=== PATIENT | female | born 1955 | race Caucasian/White ===

== ENCOUNTER 2021-01-29 12:49 | Inpatient (IN) | payer MEDICARE ==
--- NOTE | 2021-01-29 13:57 | ED ---
General Adult HPI - General Chief complaint: GI Bleed Stated complaint: Vomiting Time Seen by Provider: 01/29/21 13:35 Source: patient, RN notes reviewed, old records reviewed Mode of arrival: ambulatory Limitations: no limitations - History of Present Illness Initial comments: This is a 65-year-old female who presents emergency department with past history significant for hypertension. Patient states she woke up this morning felt nauseated and it was becoming more significantly so she decided to make herself throw up by sticking her finger down her throat. Patient states she started vomiting and it was quite a bit of blood initially and then it sort of slowly subsided. Patient states currently she has no symptoms other than being lightheaded. Patient denies any difficulty breathing or shortness of breath. Patient denies any chest pain or palpitations. Patient denies any abdominal pain. Patient states currently she is not nauseated and she has not had any diarrhea recently. Patient denies any recent fever chills or cough. - Related Data Allergies Allergy/AdvReac Type Severity Reaction Status Date / Time sulfadiazine Allergy Rash/Hives Verified 01/29/21 13:38 Review of Systems ROS Statement: Those systems with pertinent positive or pertinent negative responses have been documented in the HPI. ROS Other: All systems not noted in ROS Statement are negative. Past Medical History Past Medical History: Diabetes Mellitus History of Any Multi-Drug Resistant Organisms: None Reported Past Surgical History: No Surgical Hx Reported Past Psychological History: No Psychological Hx Reported Smoking Status: Never smoker Past Alcohol Use History: None Reported Past Drug Use History: None Reported General Exam - General Exam Comments Initial Comments: GENERAL: Patient is well-developed and well-nourished. Patient is nontoxic and well- hydrated and is in mild distress. ENT: Neck is soft and supple. No significant lymphadenopathy is noted. Oropharynx is clear. Moist mucous membranes. Neck has full range of motion without eliciting any pain. EYES: The sclera were anicteric and conjunctiva were pink and moist. Extraocular movements were intact and pupils were equal round and reactive to light. Eyelids were unremarkable. PULMONARY: Unlabored respirations. Good breath sounds bilaterally. No audible rales rhonchi or wheezing was noted. CARDIOVASCULAR: There is a regular rate and rhythm without any murmurs gallops or rubs. ABDOMEN: Soft and nontender with normal bowel sounds. SKIN: Skin is clear with no lesions or rashes and otherwise unremarkable. NEUROLOGIC: Patient is alert and oriented x3. Cranial nerves II through XII are grossly intact. Motor and sensory are also intact. Normal speech, volume and content. Symmetrical smile. MUSCULOSKELETAL: Normal extremities with adequate strength and full range of motion. No lower extremity swelling or edema. No calf tenderness. LYMPHATICS: No significant lymphadenopathy is noted PSYCHIATRIC: Normal psychiatric evaluation. Limitations: no limitations Course Vital Signs 01/29/21 01/29/21 13:36 15:16 Temperature 98.6 F Pulse Rate 132 H 100 Respiratory 20 18 Rate Blood Pressure 96/50 128/59 O2 Sat by Pulse 100 97 Oximetry Medical Decision Making - Medical Decision Making Patient's hemoglobin was 6.5 patient was given a unit of packed red blood cells. Patient was also given Protonix. I spoke with Dr. Mak he agreed to admit the patient admitted the patient wrote admitting orders I continued monitoring the hemoglobin. I consulted Dr. Mcclellan EKG shows sinus tachycardia at 107 bpm WI interval 192 QRS is 88 QT interval 362 QTC is 483. Patient's EKG shows no ST segment elevation or depression. - Lab Data Result diagrams: 01/29/21 14:03 01/29/21 14:03 Lab Results 01/29/21 01/29/21 01/29/21 Range/Units 14:03 14:03 14:03 WBC 4.5 (3.8-10.6) k/uL RBC 2.98 L (3.80-5.40) m/uL Hgb 6.5 L* (11.4-16.0) gm/dL Hct 20.7 L (34.0-46.0) % MCV 69.5 L (80.0-100.0) fL MCH 21.9 L (25.0-35.0) pg MCHC 31.5 (31.0-37.0) g/dL RDW 19.2 H (11.5-15.5) % Plt Count 70 L (150-450) k/uL MPV 9.0 Neutrophils % 60 % Lymphocytes % 25 % Monocytes % 5 % Eosinophils % 5 % Basophils % 0 % Neutrophils # 2.7 (1.3-7.7) k/uL Lymphocytes # 1.2 (1.0-4.8) k/uL Monocytes # 0.2 (0-1.0) k/uL Eosinophils # 0.2 (0-0.7) k/uL Basophils # 0.0 (0-0.2) k/uL Hypochromasia Marked Poikilocytosis Moderate Anisocytosis Slight Microcytosis Marked PT 11.4 (9.0-12.0) sec INR 1.1 (<1.2) APTT 22.9 (22.0-30.0) sec Sodium 136 L (137-145) mmol/L Potassium 4.4 (3.5-5.1) mmol/L Chloride 105 (98-107) mmol/L Carbon Dioxide 19 L (22-30) mmol/L Anion Gap 12 mmol/L BUN 37 H (7-17) mg/dL Creatinine 0.97 (0.52-1.04) mg/dL Est GFR (CKD-EPI)AfAm 71 (>60 ml/min/1.73 sqM) Est GFR (CKD-EPI)NonAf 61 (>60 ml/min/1.73 sqM) Glucose 180 H (74-99) mg/dL Calcium 9.1 (8.4-10.2) mg/dL Total Bilirubin 1.0 (0.2-1.3) mg/dL AST 28 (14-36) U/L ALT 22 (4-34) U/L Alkaline Phosphatase 69 (38-126) U/L Total Protein 6.5 (6.3-8.2) g/dL Albumin 3.7 (3.5-5.0) g/dL Coronavirus (PCR) (Not Detectd) 01/29/21 Range/Units 15:16 WBC (3.8-10.6) k/uL RBC (3.80-5.40) m/uL Hgb (11.4-16.0) gm/dL Hct (34.0-46.0) % MCV (80.0-100.0) fL MCH (25.0-35.0) pg MCHC (31.0-37.0) g/dL RDW (11.5-15.5) % Plt Count (150-450) k/uL MPV Neutrophils % % Lymphocytes % % Monocytes % % Eosinophils % % Basophils % % Neutrophils # (1.3-7.7) k/uL Lymphocytes # (1.0-4.8) k/uL Monocytes # (0-1.0) k/uL Eosinophils # (0-0.7) k/uL Basophils # (0-0.2) k/uL Hypochromasia Poikilocytosis Anisocytosis Microcytosis PT (9.0-12.0) sec INR (<1.2) APTT (22.0-30.0) sec Sodium (137-145) mmol/L Potassium (3.5-5.1) mmol/L Chloride (98-107) mmol/L Carbon Dioxide (22-30) mmol/L Anion Gap mmol/L BUN (7-17) mg/dL Creatinine (0.52-1.04) mg/dL Est GFR (CKD-EPI)AfAm (>60 ml/min/1.73 sqM) Est GFR (CKD-EPI)NonAf (>60 ml/min/1.73 sqM) Glucose (74-99) mg/dL Calcium (8.4-10.2) mg/dL Total Bilirubin (0.2-1.3) mg/dL AST (14-36) U/L ALT (4-34) U/L Alkaline Phosphatase (38-126) U/L Total Protein (6.3-8.2) g/dL Albumin (3.5-5.0) g/dL Coronavirus (PCR) Not Detected (Not Detectd) Critical Care Time Critical Care Time: Yes Total Critical Care Time: 35 Disposition Clinical Impression: Upper GI bleed, Anemia Disposition: ADMITTED IP TO THIS [facility] Referrals: None,Stated [Primary Care Provider] - 1-2 days Time of Disposition: 16:08
[2021-01-29 14:39] LABS: Anisocytosis Slight; Basophils % (A) 0 %; Eosinophils # (A) 0.2 k/uL (0-0.7); Eosinophils % (A) 5 %; HCT 20.7 % (34.0-46.0); Hypochromasia Marked; Lymphocytes # (A) 1.2 k/uL (1.0-4.8); Lymphocytes % (A) 25 %; MCH 21.9 pg (25.0-35.0); MCHC 31.5 g/dL (31.0-37.0); MCV 69.5 fL (80.0-100.0); Microcytosis Marked; Monocytes # (A) 0.2 k/uL (0-1.0); Monocytes % (A) 5 %; Neutrophils # (A) 2.7 k/uL (1.3-7.7); Neutrophils % (A) 60 %; Poikilocytosis Moderate; RBC 2.98 m/uL (3.80-5.40); RDW 19.2 % (11.5-15.5); WBC 4.5 k/uL (3.8-10.6)
[2021-01-29 14:42] LABS: HGB 6.5 gm/dL (11.4-16.0)
[2021-01-29 14:47] LABS: Albumin 3.7 g/dL (3.5-5.0); Calcium 9.1 mg/dL (8.4-10.2); Potassium 4.4 mmol/L (3.5-5.1); Total Protein 6.5 g/dL (6.3-8.2)
[2021-01-29 14:48] LABS: INR 1.1 (<1.2); Partial Thromboplastin Time 22.9 sec (22.0-30.0); Prothrombin Time 11.4 sec (9.0-12.0)
[2021-01-29 14:52] LABS: Platelet Count 70 k/uL (150-450)
[2021-01-29] MEDS: PANTOPRAZOLE 40 MG/10 ML VIAL IVP SCH ×2 (15:29→21:36)
[2021-01-29] MEDS ORDERED: SODIUM CHLORIDE 0.9% 1,000 ML IV ONE (16:10)
[2021-01-29] MEDS: SODIUM CHLORIDE 0.9% 1,000 ML IV ONE (16:14)
[2021-01-29 16:35] LABS: Anisocytosis Slight; Basophils % (A) 0 %; Eosinophils # (A) 0.1 k/uL (0-0.7); Eosinophils % (A) 3 %; Hypochromasia Marked; Lymphocytes # (A) 1.2 k/uL (1.0-4.8); Lymphocytes % (A) 27 %; MCH 21.6 pg (25.0-35.0); MCHC 31.1 g/dL (31.0-37.0); MCV 69.5 fL (80.0-100.0); Mean Platelet Volume 13.8; Microcytosis Marked; Monocytes # (A) 0.2 k/uL (0-1.0); Monocytes % (A) 4 %; Neutrophils # (A) 2.7 k/uL (1.3-7.7); Neutrophils % (A) 61 %; Poikilocytosis Moderate; RBC 2.79 m/uL (3.80-5.40); RDW 19.3 % (11.5-15.5); WBC 4.4 k/uL (3.8-10.6)
[2021-01-29 16:57] LABS: HCT 19.4 % (34.0-46.0)
[2021-01-29 17:28] LABS: Platelet Count 79 k/uL (150-450)
[2021-01-29] MEDS ORDERED: ALPRAZolam 0.25 MG TAB PO PRN (18:58)
[2021-01-29] MEDS ORDERED: ZOLPIDEM 10 MG TAB PO PRN (18:58)
[2021-01-29 20:21] LABS: Glucose,Whole Blood 106 mg/dL (75-99)
[2021-01-29] MEDS ORDERED: PANTOPRAZOLE 40 MG/10 ML VIAL IVP SCH (21:00)
[2021-01-29] MEDS: INSULIN ASPART (NovoLOG) 100 UNIT/ML VIAL SQ SCH (21:29)
--- NOTE | 2021-01-29 22:11 | P.HPIM ---
History of Present Illness H&P Date: 01/29/21 Chief Complaint: Vomiting up blood Patient is a 65-year-old female with a known history of diabetes type 2 vdj-rhbwsqv-humsicavj, hyperlipidemia, hypertension, depression presents to ER with complaints of throwing up blood. Patient states that she woke up this morning and felt very nauseated and threw up midm-husqzb-iiwqjlu blood. Patient also noted to have dark-colored stools today and felt lightheaded while she was going to the bathroom. Denied any complaints of abdominal pain. No recent diarrhea. Denied any recent illnesses. No prior history of GI bleed. No c omplaints of chest pain or shortness of breath. No fever no chills. Denies any taking kqyp-pdc-inaoqcs pain medications. No recent travel. Patient states that she had lab work-up done by her PCP and did not mention anything about the hemoglobin specifically. EKG showed sinus tachycardia Laboratory data showed hemoglobin 11.6 0.5 and MCV 69.5 and platelets 70 Sodium 136 potassium 4.4 chloride 105 bicarb is 19 BUN 37 creatinine 0.97 Review of Systems Constitutional: Patient denies any fever or chills . No generalized weakness or weight loss. Abdomen: Patient does have nausea and vomiting of blood. No abdominal pain. No diarrhea. . Cardiovascular: Patient denies any chest pain or short of breath no palpitations. Respiratory: patient denied any cough or sputum production. No shortness of breath Neurologic: Patient denied any numbness or tingling headache. Dizziness and lightheadedness Musculoskeletal: Patient denies any complaints of joint swelling or deformity. Skin: Negative Psychiatric: Negative Endocrine: No heat or cold intolerance. No recent weight gain. Genitourinary: No dysuria or hematuria. All other 14 point ROS negative except the above Past Medical History Past Medical History: Diabetes Mellitus History of Any Multi-Drug Resistant Organisms: None Reported Past Surgical History: Section Additional Past Surgical History / Comment(s): eye surgery Past Anesthesia/Blood Transfusion Reactions: No Reported Reaction Past Psychological History: No Psychological Hx Reported Smoking Status: Never smoker Past Alcohol Use History: None Reported Past Drug Use History: None Reported Medications and Allergies Home Medications Medication Instructions Recorded Confirmed Type ALPRAZolam [Xanax] 0.25 mg PO DAILY PRN 01/29/21 01/29/21 History Escitalopram [Lexapro] 10 mg PO DAILY 01/29/21 01/29/21 History Losartan Potassium [Cozaar] 100 mg PO DAILY 01/29/21 01/29/21 History Simvastatin [Zocor] 20 mg PO DAILY 01/29/21 01/29/21 History Zolpidem Tartrate [Ambien] 10 mg PO HS PRN 01/29/21 01/29/21 History glipiZIDE XL [Glucotrol XL] 5 mg PO DAILY 01/29/21 01/29/21 History metFORMIN HCL [Glucophage] 500 mg PO TID 01/29/21 01/29/21 History Allergies Allergy/AdvReac Type Severity Reaction Status Date / Time sulfadiazine Allergy Rash/Hives Verified 01/29/21 17:05 Physical Exam Vitals: Vital Signs Temp Pulse Pulse Pulse Pulse Resp BP 01/29/21 20:00 98.3 F 83 17 01/29/21 19:03 98.2 F 84 17 130/51 01/29/21 18:33 98.4 F 89 17 107/46 01/29/21 18:23 98 F 87 16 105/41 01/29/21 16:16 104 H 121 H 97 20 01/29/21 15:16 100 18 128/59 01/29/21 13:36 98.6 F 132 H 20 96/50 BP BP BP Pulse Ox 01/29/21 20:00 135/67 99 01/29/21 19:03 99 01/29/21 18:33 100 01/29/21 18:23 01/29/21 16:16 111/50 83/63 119/52 01/29/21 15:16 97 01/29/21 13:36 100 Intake and Output 01/29/21 01/29/21 01/29/21 06:59 14:59 22:59 Intake Total 0 Balance 0 Intake: Blood Product 0 Rc Irr As1 Unit 0 [id number] Other: # Bowel Movements 2 Weight 79.379 kg 79.379 kg PHYSICAL EXAMINATION: Patient is lying in the bed comfortably, no acute distress, awake alert and o riented.. HEENT: Normocephalic. Neck is supple. Pupils reactive. Nostrils clear. Oral cavity is moist. Neck reveals no JVD, carotid bruits, or thyromegaly. CHEST EXAMINATION: Trachea is central. Symmetrical expansion. Lung mata clear to auscultation and percussion. CARDIAC: Normal S1, S2 with no gallops. No murmurs ABDOMEN: Soft. Bowel sounds normal. No organomegaly. No abdominal bruits. Extremities: reveal no edema. No clubbing or cyanosis Neurologically awake, alert, oriented x3 with well-coordinated movements. No focal deficits noted Skin: No rash or skin lesions. Psychiatric: Cooperative. Nonsuicidal Musculoskeletal: No joint swelling or deformity. Normal range of motion. Results CBC & Chem 7: 01/29/21 16:32 01/29/21 14:03 Labs: Abnormal Lab Results - Last 24 Hours (Table) 01/29/21 01/29/21 01/29/21 Range/Units 14:03 14:03 15:20 RBC 2.98 L (3.80-5.40) m/uL Hgb 6.5 L* (11.4-16.0) gm/dL Hct 20.7 L (34.0-46.0) % MCV 69.5 L (80.0-100.0) fL MCH 21.9 L (25.0-35.0) pg RDW 19.2 H (11.5-15.5) % Plt Count 70 L (150-450) k/uL Sodium 136 L (137-145) mmol/L Carbon Dioxide 19 L (22-30) mmol/L BUN 37 H (7-17) mg/dL Glucose 180 H (74-99) mg/dL POC Glucose (mg/dL) (75-99) mg/dL Crossmatch See Detail 01/29/21 01/29/21 Range/Units 16:32 20:20 RBC 2.79 L (3.80-5.40) m/uL Hgb 6.0 L* (11.4-16.0) gm/dL Hct 19.4 L* (34.0-46.0) % MCV 69.5 L (80.0-100.0) fL MCH 21.6 L (25.0-35.0) pg RDW 19.3 H (11.5-15.5) % Plt Count 79 L (150-450) k/uL Sodium (137-145) mmol/L Carbon Dioxide (22-30) mmol/L BUN (7-17) mg/dL Glucose (74-99) mg/dL POC Glucose (mg/dL) 106 H (75-99) mg/dL Crossmatch Thrombosis Risk Factor Assmnt - DVT/VTE Prophylaxis DVT/VTE Prophylaxis: Mechanical Prophylaxis ordered - Choose All That Apply Each Risk Factor Represents 2 Points: Age 61-74 years Thrombosis Risk Factor Assessment Total Risk Factor Score: 2 Thrombosis Risk Factor Assessment Level: Low Risk Assessment and Plan Assessment: Hematemesis secondary to GI bleed likely upper GI Symptomatic anemia Acute blood loss anemia with hemoglobin level 6.5 on admission Microcytic anemia and thrombocytopenia Hypertension Hyperlipidemia Diabetes type 2 mqf-jfrgmbt-lzoqrlhgg DVT prophylaxis and GI prophylaxis Plan: Patient will be continued on IV hydration with normal saline and continue with Protonix IV twice daily and monitor hemoglobin every 4 hours and transfuse if hemoglobin is less than 7. Gastroenterology service was consulted. Patient will be current on home blood pressure medications, insulin sliding scale and follow-up closely. Time with Patient: Greater than 30
[2021-01-29] MEDS: ZOLPIDEM 5 MG TAB PO PRN (22:47)
[2021-01-30 00:19] LABS: Anisocytosis Slight; Basophils % (A) 0 %; Eosinophils # (A) 0.2 k/uL (0-0.7); Eosinophils % (A) 4 %; HCT 23.5 % (34.0-46.0); Hypochromasia Marked; Lymphocytes # (A) 1.6 k/uL (1.0-4.8); Lymphocytes % (A) 34 %; MCH 21.9 pg (25.0-35.0); MCHC 29.8 g/dL (31.0-37.0); MCV 73.3 fL (80.0-100.0); Mean Platelet Volume 9.2; Microcytosis Moderate; Monocytes # (A) 0.3 k/uL (0-1.0); Monocytes % (A) 6 %; Neutrophils # (A) 2.4 k/uL (1.3-7.7); Neutrophils % (A) 51 %; Poikilocytosis Moderate; RDW 18.6 % (11.5-15.5); WBC 4.7 k/uL (3.8-10.6)
[2021-01-30 00:21] LABS: Platelet Count 65 k/uL (150-450)
[2021-01-30 05:09] LABS: Anisocytosis Slight; HCT 20.2 % (34.0-46.0); Hypochromasia Marked; MCH 22.9 pg (25.0-35.0); MCHC 32.2 g/dL (31.0-37.0); Mean Platelet Volume 9.4; Microcytosis Marked; Poikilocytosis Moderate; RBC 2.84 m/uL (3.80-5.40); RDW 18.9 % (11.5-15.5)
[2021-01-30 05:12] LABS: HGB 6.5 gm/dL (11.4-16.0); Platelet Count 63 k/uL (150-450)
[2021-01-30 05:30] LABS: Band Neutrophils % 6 %; Lymphocytes # (M) 1.44 k/uL (1.0-4.8); Monocytes # (M) 0.28 k/uL (0-1.0); Neutrophils % (M) 46 %; Nucleated Red Blood Cells 0 /100 WBC (0-0); Total Cells Counted 100
[2021-01-30 05:31] LABS: Anisocytosis (M) Present; Ovalocytes Present; Poikilocytosis (M) Present; Polychromasia Present
[2021-01-30 06:05] LABS: Glucose,Whole Blood 93 mg/dL (75-99)
[2021-01-30] MEDS: INSULIN ASPART (NovoLOG) 100 UNIT/ML VIAL SQ SCH ×4 (06:20→21:44)
[2021-01-30] MEDS: PANTOPRAZOLE 40 MG/10 ML VIAL IVP SCH ×2 (08:20→21:47)
[2021-01-30 10:22] LABS: % Iron Saturation 25.6 (12.00-45.00)
--- NOTE | 2021-01-30 11:00 | P.CONS ---
History of Present Illness - Reason for Consult Consult date: 01/30/21 Upper GI bleed Requesting physician: Julio César Glover - Chief Complaint Coffee-ground emesis - History of Present Illness This is a 65-year-old female who presented to the emergency department yesterday after she had 3 episodes of coffee-ground emesis. On admission she was noted to have a hemoglobin of 6.0 with a microcytic anemia therefore gastroenterology was consulted for upper GI bleed. The patient states she started feeling nauseated so she actually made herself vomit which she states was very dark. She states she had 2 further episodes of moderate amount of coffee-ground emesis. She denied any associated abdominal pain. She states that she felt weak, tired, and dizzy afterwards. She was given 1 unit of PRBC transfusion with a repeat hemoglobin of 7.0, this morning hemoglobin was 6.5 hematocrit 20.2 platelet count 63,000 and she is currently getting her second unit of PRBC transfusion. Patient denies any previous history of GI bleed. She denies any previous history of thrombocytopenia. She denies any history of liver disease or alcoholism. She denies being on any anticoagulation her NSAID use. She does state that she sometimes gets heartburn she has never had a upper endoscopy. She is up-to-date on her colonoscopy and states that she had approximately 10 years ago which was normal and she is due to have one on this upcoming year. She currently denies any abdominal pain, nausea, or vomiting. She's had no further bleeding. She states she did have a black stool yesterday which was soft, but no further bowel movements today. She's been afebrile. Review of Systems REVIEW OF SYSTEMS: CARDIOPULMONARY: No chest pain or shortness of breath. Gastrointestinal: No abdominal pain. Occasional heartburn. Nausea with coffee- ground emesis 3 yesterday. No further nausea or vomiting today. No rectal bleeding, did have one soft black stool yesterday. GENITOURINARY: No dysuria or hematuria. MUSCULOSKELETAL: Reports normal range of motion., Joint pain. SKIN: No rashes. No jaundice. ENDOCRINE: No chills, fevers. No excessive weight gain or loss. No polydipsia or polyuria. PSYCHIATRIC: Unremarkable. NEUROLOGY: No change in mental status. Denies dizziness, headache. ENT: Vision unremarkable. CONSTITUTIONAL: No recent weight loss. No fever, chills, night sweats. Fatigue and lightheaded. Past Medical History Past Medical History: Diabetes Mellitus History of Any Multi-Drug Resistant Organisms: None Reported Past Surgical History: Section Additional Past Surgical History / Comment(s): eye surgery Past Anesthesia/Blood Transfusion Reactions: No Reported Reaction Past Psychological History: No Psychological Hx Reported Smoking Status: Never smoker Past Alcohol Use History: None Reported Past Drug Use History: None Reported Medications and Allergies Home Medications Medication Instructions Recorded Confirmed Type ALPRAZolam [Xanax] 0.25 mg PO DAILY PRN 01/29/21 01/29/21 History Escitalopram [Lexapro] 10 mg PO DAILY 01/29/21 01/29/21 History Losartan Potassium [Cozaar] 100 mg PO DAILY 01/29/21 01/29/21 History Simvastatin [Zocor] 20 mg PO DAILY 01/29/21 01/29/21 History Zolpidem Tartrate [Ambien] 10 mg PO HS PRN 01/29/21 01/29/21 History glipiZIDE XL [Glucotrol XL] 5 mg PO DAILY 01/29/21 01/29/21 History metFORMIN HCL [Glucophage] 500 mg PO TID 01/29/21 01/29/21 History Allergies Allergy/AdvReac Type Severity Reaction Status Date / Time sulfadiazine Allergy Rash/Hives Verified 01/29/21 17:05 Physical Exam Vitals: Vital Signs Temp Pulse Pulse Pulse Pulse Pulse Resp 01/30/21 08:23 98.4 F 91 16 01/30/21 06:51 98.2 F 88 18 01/30/21 06:21 98.6 F 87 18 01/30/21 06:15 98.5 F 95 16 01/30/21 06:11 89 18 01/30/21 04:20 98.8 F 96 18 01/29/21 23:30 94 17 01/29/21 22:30 98.2 F 80 18 01/29/21 22:08 98.2 F 82 18 01/29/21 21:30 98.5 F 95 16 01/29/21 20:00 98.3 F 83 17 01/29/21 19:03 98.2 F 84 17 01/29/21 18:33 98.4 F 89 17 01/29/21 18:23 98 F 87 16 01/29/21 16:16 104 H 121 H 97 20 01/29/21 15:16 100 18 01/29/21 13:36 98.6 F 132 H 20 BP BP BP BP BP Pulse Ox 01/30/21 08:23 122/62 98 01/30/21 06:51 123/68 97 01/30/21 06:21 97 01/30/21 06:15 127/61 98 01/30/21 06:11 120/64 97 01/30/21 04:20 130/71 98 01/29/21 23:30 122/57 99 01/29/21 22:30 131/64 100 01/29/21 22:08 125/64 94 L 01/29/21 21:30 127/61 98 01/29/21 20:00 135/67 99 01/29/21 19:03 130/51 99 01/29/21 18:33 107/46 100 01/29/21 18:23 105/41 01/29/21 16:16 111/50 83/63 119/52 01/29/21 15:16 128/59 97 01/29/21 13:36 96/50 100 Intake and Output 01/29/21 01/30/21 01/30/21 22:59 06:59 14:59 Intake Total 310 0 310 Balance 310 0 310 Intake: Blood Product 310 0 310 Rc As-1 Unit 0 310 [id number] Rc Irr As1 Unit 310 [id number] Other: # Voids 1 # Bowel Movements 2 Weight 79.379 kg 80.3 kg General appearance: The patient is alert, oriented, appears in no acute distress. HET: Head is normocephalic and atraumatic. Conjunctiva pink. Sclera anicteric. Neck: Supple without lymphadenopathy. Trachea midline. Heart: S1 S2. Regular rate and rhythm. Lungs: Clear to auscultation. Abdomen: Soft, nontender, nondistended with bowel sounds. No guarding or rigidity. Skin: No rashes. No jaundice. Extremities: Normal skin color and turgor. No pedal edema. Neurological: No focal deficits. Alert and oriented x3. Results CBC & Chem 7: 01/30/21 04:18 01/29/21 14:03 Labs: Abnormal Lab Results - Last 24 Hours (Table) 01/29/21 01/29/21 01/29/21 Range/Units 14:03 14:03 15:20 RBC 2.98 L (3.80-5.40) m/uL Hgb 6.5 L* (11.4-16.0) gm/dL Hct 20.7 L (34.0-46.0) % MCV 69.5 L (80.0-100.0) fL MCH 21.9 L (25.0-35.0) pg MCHC (31.0-37.0) g/dL RDW 19.2 H (11.5-15.5) % Plt Count 70 L (150-450) k/uL Sodium 136 L (137-145) mmol/L Carbon Dioxide 19 L (22-30) mmol/L BUN 37 H (7-17) mg/dL Glucose 180 H (74-99) mg/dL POC Glucose (mg/dL) (75-99) mg/dL Crossmatch See Detail 01/29/21 01/29/21 01/29/21 Range/Units 16:32 20:20 23:52 RBC 2.79 L 3.20 L (3.80-5.40) m/uL Hgb 6.0 L* 7.0 L (11.4-16.0) gm/dL Hct 19.4 L* 23.5 L (34.0-46.0) % MCV 69.5 L 73.3 L (80.0-100.0) fL MCH 21.6 L 21.9 L (25.0-35.0) pg MCHC 29.8 L (31.0-37.0) g/dL RDW 19.3 H 18.6 H (11.5-15.5) % Plt Count 79 L 65 L (150-450) k/uL Sodium (137-145) mmol/L Carbon Dioxide (22-30) mmol/L BUN (7-17) mg/dL Glucose (74-99) mg/dL POC Glucose (mg/dL) 106 H (75-99) mg/dL Crossmatch 01/30/21 Range/Units 04:18 RBC 2.84 L (3.80-5.40) m/uL Hgb 6.5 L* (11.4-16.0) gm/dL Hct 20.2 L (34.0-46.0) % MCV 71.0 L (80.0-100.0) fL MCH 22.9 L (25.0-35.0) pg MCHC (31.0-37.0) g/dL RDW 18.9 H (11.5-15.5) % Plt Count 63 L (150-450) k/uL Sodium (137-145) mmol/L Carbon Dioxide (22-30) mmol/L BUN (7-17) mg/dL Glucose (74-99) mg/dL POC Glucose (mg/dL) (75-99) mg/dL Crossmatch Assessment and Plan (1) Microcytic anemia Narrative/Plan: 65-year-old female who presented to the emergency department after 3 episodes of coffee-ground emesis. Patient denies any previous history of GI bleed, denies any anticoagulation or NSAID use. On admission she was noted to have a hemoglobin of 6.0 with CBC consistent with a microcytic anemia. She received 1 unit of PRBC transfusion with a repeat hemoglobin of 7.0. Today her hemoglobin again was 6.5 and she was given a second unit of PRBC transfusion. Is also noted to have thrombocytopenia with a platelet count today of 63,000. Patient denies any previous history of thrombocytopenia. She states she does follow up regularly with her PCP. She denied any abdominal pain associated with nausea and vomiting, denies any history of peptic ulcer disease, does get occasional heartburn. No previous EGD but has had a screening colonoscopy approximately 10 years ago which she states was normal and she is due to have one in the upcoming year. Patient lives consistent with a microcytic anemia likely due to acute GI blood loss. I discussed with patient won't recommend proceeding with an EGD. Possible etiologies include peptic ulcer disease, gastritis, hepatitis, AVM, or other etiologies. Current Visit: Yes Status: Acute Code(s): D50.9 - IRON DEFICIENCY ANEMIA, UNSPECIFIED SNOMED Code(s): 293125917 (2) Upper GI bleed Current Visit: Yes Status: Acute Code(s): K92.2 - GASTROINTESTINAL HEMOR RHAGE, UNSPECIFIED SNOMED Code(s): 04664771 (3) Thrombocytopenia Narrative/Plan: Consult to hematology Current Visit: Yes Status: Acute Code(s): D69.6 - THROMBOCYTOPENIA, UNSPECIFIED SNOMED Code(s): 137013521 Plan: 1. Continue symptomatic and supportive care 2. Protonix 40 mg IV twice a day 3. Clear liquid diet, nothing by mouth after midnight 4. Daily CBC transfuse for hemoglobin less than 7 5. We'll plan to proceed with EGD tomorrow, procedure discussed with patient, including risks and benefits. Patient agreeable to proceed. 6. Hematology consulted for new onset thrombocytopenia Thank you for this consultation, we will continue to follow. Dr. Doris Mcclellan I agree with the dictator's note, documented as a scribe by Dara Mcdermott.
[2021-01-30 11:49] LABS: Glucose,Whole Blood 132 mg/dL (75-99)
[2021-01-30] MEDS: LOSARTAN 50 MG TAB PO SCH (12:35)
[2021-01-30] MEDS: ESCITALOPRAM 10 MG TAB PO SCH (12:35)
[2021-01-30] MEDS: ATORVASTATIN 10 MG TAB PO SCH (12:35)
[2021-01-30] MEDS: SODIUM CHLORIDE 0.9% 1,000 ML IV ONE (12:36)
[2021-01-30] MEDS ORDERED: IOPAMIDOL CONTRAST (ORAL USE) VIAL PO PRN (13:01)
--- NOTE | 2021-01-30 13:09 | P.CONS ---
History of Present Illness - Reason for Consult Consult date: 01/30/21 anemia Requesting physician: Dara Fabian - Chief Complaint hematemesis - History of Present Illness Mrs. Vasquez is a very pleasant woman we have been asked to see regarding anemia and thrombocytopenia. She has had hematemesis and black stool x 1 day, she denied any other symptoms, no precipitating factors she can identify, no Hx of liver disease, ETOH, Hepatitis, chronic NSAID use, she has noted some increase in indigestion in the last few weeks. Denies fever, N,V, dysphagia, odynophagia, pain in the chest, cough, SOB, bruising, no other bleeding to report, she has not had a bout of emesis since admit, she has not eaten anything. Review of Systems 10 point ROS is neg except as stated in HPI Past Medical History Past Medical History: Diabetes Mellitus History of Any Multi-Drug Resistant Organisms: None Reported Past Surgical History: Section Additional Past Surgical History / Comment(s): eye surgery Past Anesthesia/Blood Transfusion Reactions: No Reported Reaction Past Psychological History: No Psychological Hx Reported Smoking Status: Never smoker Past Alcohol Use History: None Reported Past Drug Use History: None Reported Medications and Allergies Home Medications Medication Instructions Recorded Confirmed Type ALPRAZolam [Xanax] 0.25 mg PO DAILY PRN 01/29/21 01/29/21 History Escitalopram [Lexapro] 10 mg PO DAILY 01/29/21 01/29/21 History Losartan Potassium [Cozaar] 100 mg PO DAILY 01/29/21 01/29/21 History Simvastatin [Zocor] 20 mg PO DAILY 01/29/21 01/29/21 History Zolpidem Tartrate [Ambien] 10 mg PO HS PRN 01/29/21 01/29/21 History glipiZIDE XL [Glucotrol XL] 5 mg PO DAILY 01/29/21 01/29/21 History metFORMIN HCL [Glucophage] 500 mg PO TID 01/29/21 01/29/21 History Allergies Allergy/AdvReac Type Severity Reaction Status Date / Time sulfadiazine Allergy Rash/Hives Verified 01/29/21 17:05 Physical Exam Vitals: Vital Signs Temp Pulse Pulse Pulse Pulse Pulse Resp 01/30/21 08:23 98.4 F 91 16 01/30/21 08:00 96 01/30/21 06:51 98.2 F 88 18 01/30/21 06:21 98.6 F 87 18 01/30/21 06:15 98.5 F 95 16 01/30/21 06:11 89 18 01/30/21 04:20 98.8 F 96 18 01/29/21 23:30 94 17 01/29/21 22:30 98.2 F 80 18 01/29/21 22:08 98.2 F 82 18 01/29/21 21:30 98.5 F 95 16 01/29/21 20:00 98.3 F 83 17 01/29/21 19:03 98.2 F 84 17 01/29/21 18:33 98.4 F 89 17 01/29/21 18:23 98 F 87 16 01/29/21 16:16 104 H 121 H 97 20 01/29/21 15:16 100 18 01/29/21 13:36 98.6 F 132 H 20 BP BP BP BP BP Pulse Ox 01/30/21 08:23 122/62 98 01/30/21 08:00 01/30/21 06:51 123/68 97 01/30/21 06:21 97 01/30/21 06:15 127/61 98 01/30/21 06:11 120/64 97 01/30/21 04:20 130/71 98 01/29/21 23:30 122/57 99 01/29/21 22:30 131/64 100 01/29/21 22:08 125/64 94 L 01/29/21 21:30 127/61 98 01/29/21 20:00 135/67 99 01/29/21 19:03 130/51 99 01/29/21 18:33 107/46 100 01/29/21 18:23 105/41 01/29/21 16:16 111/50 83/63 119/52 01/29/21 15:16 128/59 97 01/29/21 13:36 96/50 100 Intake and Output 01/29/21 01/30/21 01/30/21 22:59 06:59 14:59 Intake Total 310 0 310 Balance 310 0 310 Intake: Blood Product 310 0 310 Rc As-1 Unit 0 310 [id number] Rc Irr As1 Unit 310 [id number] Other: # Voids 1 1 # Bowel Movements 2 Weight 79.379 kg 80.3 kg - Constitutional General appearance: average body habitus, cooperative, no acute distress - EENT Eyes: anicteric sclerae, EOMI ENT: hearing grossly normal, normal oropharynx - Neck Neck: no lymphadenopathy - Respiratory Respiratory: bilateral: CTA - Cardiovascular Rhythm: regular Heart sounds: normal: S1, S2 Abnormal Heart Sounds: no systolic murmur, no diastolic murmur, no rub, no S3 Gallop, no S4 Gallop, no click, no other leg Peripheral Edema: bilateral: None - Gastrointestinal General gastrointestinal: no absent bowel sounds, no decreased bowel sounds, no distended, no hepatomegaly, no hyperactive bowel sounds, normal bowel sounds, no organomegaly, no rigid, no scaphoid, soft, no splenomegaly, no tenderness, no umbilical hernia, no ventral hernia - Integumentary Integumentary: normal turgor, pale - Neurologic Neurologic: CNII-XII intact - Musculoskeletal Musculoskeletal: strength equal bilaterally - Psychiatric Psychiatric: A&O x's 3, appropriate affect, intact judgment & insight Results CBC & Chem 7: 01/30/21 04:18 01/29/21 14:03 Labs: Abnormal Lab Results - Last 24 Hours (Table) 01/29/21 01/29/21 01/29/21 Range/Units 14:03 14:03 15:20 RBC 2.98 L (3.80-5.40) m/uL Hgb 6.5 L* (11.4-16.0) gm/dL Hct 20.7 L (34.0-46.0) % MCV 69.5 L (80.0-100.0) fL MCH 21.9 L (25.0-35.0) pg MCHC (31.0-37.0) g/dL RDW 19.2 H (11.5-15.5) % Plt Count 70 L (150-450) k/uL Sodium 136 L (137-145) mmol/L Carbon Dioxide 19 L (22-30) mmol/L BUN 37 H (7-17) mg/dL Glucose 180 H (74-99) mg/dL POC Glucose (mg/dL) (75-99) mg/dL TIBC (228-460) ug/dL Crossmatch See Detail 11/04/2001/29/21 01/29/21 Range/Units 16:32 20:20 23:52 RBC 2.79 L 3.20 L (3.80-5.40) m/uL Hgb 6.0 L* 7.0 L (11.4-16.0) gm/dL Hct 19.4 L* 23.5 L (34.0-46.0) % MCV 69.5 L 73.3 L (80.0-100.0) fL MCH 21.6 L 21.9 L (25.0-35.0) pg MCHC 29.8 L (31.0-37.0) g/dL RDW 19.3 H 18.6 H (11.5-15.5) % Plt Count 79 L 65 L (150-450) k/uL Sodium (137-145) mmol/L Carbon Dioxide (22-30) mmol/L BUN (7-17) mg/dL Glucose (74-99) mg/dL POC Glucose (mg/dL) 106 H (75-99) mg/dL TIBC (228-460) ug/dL Crossmatch 01/30/21 01/30/21 01/30/21 Range/Units 04:18 04:18 11:47 RBC 2.84 L (3.80-5.40) m/uL Hgb 6.5 L* (11.4-16.0) gm/dL Hct 20.2 L (34.0-46.0) % MCV 71.0 L (80.0-100.0) fL MCH 22.9 L (25.0-35.0) pg MCHC (31.0-37.0) g/dL RDW 18.9 H (11.5-15.5) % Plt Count 63 L (150-450) k/uL Sodium (137-145) mmol/L Carbon Dioxide (22-30) mmol/L BUN (7-17) mg/dL Glucose (74-99) mg/dL POC Glucose (mg/dL) 132 H (75-99) mg/dL TIBC 484 H (228-460) ug/dL Crossmatch Assessment and Plan (1) Hypochromic microcytic anemia Current Visit: Yes Status: Acute Priority: High Code(s): D50.9 - IRON DEFICIENCY ANEMIA, UNSPECIFIED SNOMED Code(s): 92110847 (2) Thrombocytopenia Current Visit: Yes Status: Acute Priority: High Code(s): D69.6 - THROMBOCYTOPENIA, UNSPECIFIED SNOMED Code(s): 221289049 Plan: Labs have been ordered to assess microcytic hypochromic anemia and thrombocytopenia, both of which are of new onset. Have asked if some of work up can be done on blood prior to PRBC transfusion if able. If not, will take that into consideration when interpreting. Agree with transfusion for Hgb<7 or if symptomatic. Transfuse to keep plt >10,000. No anticoagulants, asa, ibuprofen, NSAIDs, antiplatelet meds. Coags WNL US abd to evaluate liver and spleen Attests: I have seen and examined pt, performed H&P, developed impression and plan of care. Discussed with dictator. Agree with documentation, documented as a scribe.
--- NOTE | 2021-01-30 13:57 | US ---
EXAMINATION TYPE: US abdomen complete DATE OF EXAM: 01/30/2021 COMPARISON: NONE CLINICAL HISTORY: low plt. recent blood transfusion EXAM MEASUREMENTS: Liver Length: 14.1 cm Gallbladder Wall: 0.9 cm. Normal less than 0.3 cm. CBD: 0.4 cm Spleen: 18.7 cm Right Kidney: 10.1x5.7x5.0 cm Left Kidney: 12.0x6.0x5.0 cm Pancreas: wnl Liver: Heterogenous, scalloped edge in left lobe, small amount of ascites surrounding Gallbladder: Small echogenic foci measuring 0.3cm. Small amount of pericholecystic fluid. Consider a cute cholecystitis. Evidence for sonographic Whitley's sign: No CBD: wnl Spleen: Enlarged spleen measuring 18.7cm or 950cc Right Kidney: Largest renal cyst inferiorly measures 8.6x10.0x8.3cm Left Kidney: Largest renal cyst mid measures 5.4x4.8x4.6cm Upper IVC: wnl Abd Aorta: Slightly calcified IMPRESSION: 1. Splenomegaly 2. Bilateral renal cysts. 3. Cholelithiasis. Gallbladder wall thickening at 0.9 cm is present. Some pericholecystic fluid is pr esent. Correlate for acute cholecystitis.
[2021-01-30 16:08] LABS: Anisocytosis Slight; HCT 26.7 % (34.0-46.0); HGB 7.9 gm/dL (11.4-16.0); Hypochromasia Marked; MCH 23.7 pg (25.0-35.0); MCHC 29.6 g/dL (31.0-37.0); Mean Platelet Volume 8.6; Microcytosis Slight; Platelet Count 51 k/uL (150-450); Poikilocytosis Slight; RBC 3.34 m/uL (3.80-5.40); RDW 19.1 % (11.5-15.5); WBC 3.3 k/uL (3.8-10.6)
[2021-01-30 16:09] LABS: MCV 80.1 fL (80.0-100.0)
[2021-01-30 16:20] LABS: Eosinophils # (M) 0.13 k/uL (0-0.7); Lymphocytes # (M) 1.22 k/uL (1.0-4.8); Neutrophils # (M) 1.75 k/uL (1.3-7.7); Neutrophils % (M) 53 %; Nucleated Red Blood Cells 0 /100 WBC (0-0); Polychromasia Present; Stomatocytes Present; Total Cells Counted 100
[2021-01-30 16:50] LABS: Glucose,Whole Blood 171 mg/dL (75-99)
[2021-01-30 19:46] LABS: Glucose,Whole Blood 131 mg/dL (75-99)
[2021-01-30 20:01] LABS: Protein, Total 5.9 g/dL (6.2-8.2)
[2021-01-30] MEDS: ZOLPIDEM 5 MG TAB PO PRN (21:46)
[2021-01-31 04:42] LABS: Ferritin 8.9 ng/mL (10.0-291.0)
[2021-01-31 06:04] LABS: Glucose,Whole Blood 93 mg/dL (75-99)
[2021-01-31] MEDS: INSULIN ASPART (NovoLOG) 100 UNIT/ML VIAL SQ SCH ×4 (08:08→21:12)
[2021-01-31] MEDS: PANTOPRAZOLE 40 MG/10 ML VIAL IVP SCH ×2 (08:17→21:12)
[2021-01-31] MEDS: ATORVASTATIN 10 MG TAB PO SCH (08:17)
[2021-01-31] MEDS: LOSARTAN 50 MG TAB PO SCH (08:17)
[2021-01-31] MEDS: ESCITALOPRAM 10 MG TAB PO SCH (08:17)
[2021-01-31] MEDS ORDERED: LACTATED RINGERS 1,000 ML IV SCH (11:00)
[2021-01-31 11:40] LABS: Glucose,Whole Blood 121 mg/dL (75-99)
[2021-01-31] MEDS ORDERED: PROPOFOL 10 MG/ML 20 ML VIAL IV ONE (12:19)
[2021-01-31] MEDS ORDERED: IV FLUID CONTINUATION 1,000 ML IV ONE ×2 (12:19)
[2021-01-31] MEDS ORDERED: LIDOCAINE 1% INJ 10MG/ML (20 ML MDV) ONE (12:19)
--- NOTE | 2021-01-31 12:46 | P.PCN ---
Date of Procedure: 01/31/21 Procedure(s) Performed: BRIEF HISTORY: Patient is a 65-year-old, pleasant, white female admitted hospital with acute upper GI bleed and severe anemia and hemoglobin of 6.4 g/dL requiring 2 units of PRBC transfusion. She scheduled for an upper endoscopy to evaluate further. PROCEDURE PERFORMED: Esophagogastroduodenoscopy with esophageal variceal ligation. PREOPERATIVE DIAGNOSIS: Acute upper GI bleed and severe anemia. IV sedation per anesthesia. PROCEDURE: After informed consent was obtained, the patient was brought into the endoscopy unit. IV sedation was administered by Anesthesia under continuous monitoring. Initially the Olympus GIF-140 video endoscope was inserted into the mouth. Esophagus intubated without any difficulty. It was gradually advanced into the stomach and duodenum and carefully examined. The bulb and the second part of the duodenum appeared normal. The scope at this time was withdrawn to the stomach, adequately insufflated with air, and upon careful examination, mucosa of the antrum, body, cardia and the fundus had changes consistent with mild portal hypertensive gastropathy. The scope was then withdrawn into the esophagus. The GE junction was located at 39 cm from the incisors. There were large mid and distal esophageal varices with red birdie vázquez but no active bleeding. At this time the scope was withdrawn. Esophageal variceal ligation was inserted inserted the tip of the scope and esophagus intubated without any difficulty and was gradually advanced to the distal esophagus. Using suction total of 7 bands. Deployed in a spiral fashion starting from the distal esophagus to mid esophagus. The rest of the esophagus appeared normal. There were no erosions or ulcerations seen and the patient tolerated the procedure well. IMPRESSION: 1. Large mid and distal esophageal varices with red birdie signs suspicious for recent source of bleeding status post variceal ligation as described above. 2. Mild portal hypertensive gastropathy. RECOMMENDATIONS: The findings of this examination were discussed with the patient . She'll be on a clear liquid diet today. We'll start on Inderal 10 mg 3 times daily. Discharge from the hospital. She was investigated for chronic liver disease/cirrhosis of the.
[2021-01-31 13:19] LABS: Free Kappa Lt Chain Qnt, Serum 3.11 mg/dL (0.33-1.94)
[2021-01-31 14:11] LABS: Albumin 3.9 g/dL (3.5-5.0); Calcium 8.9 mg/dL (8.4-10.2); Magnesium 1.9 mg/dL (1.6-2.3); Potassium 4.3 mmol/L (3.5-5.1); Total Bilirubin 1.5 mg/dL (0.2-1.3); Total Protein 6.8 g/dL (6.3-8.2)
[2021-01-31 14:24] LABS: Anisocytosis Slight; HCT 28.1 % (34.0-46.0); HGB 8.2 gm/dL (11.4-16.0); Hypochromasia Marked; MCH 23.5 pg (25.0-35.0); MCHC 29.2 g/dL (31.0-37.0); MCV 80.5 fL (80.0-100.0); Mean Platelet Volume 14.3; Microcytosis Slight; Poikilocytosis Slight; RBC 3.49 m/uL (3.80-5.40); RDW 19.4 % (11.5-15.5); WBC 2.8 k/uL (3.8-10.6)
[2021-01-31 15:21] LABS: Eosinophils # (M) 0.08 k/uL (0-0.7); Lymphocytes # (M) 1.01 k/uL (1.0-4.8); Monocytes # (M) 0.28 k/uL (0-1.0); Neutrophils # (M) 1.43 k/uL (1.3-7.7); Neutrophils % (M) 51 %; Nucleated Red Blood Cells 0 /100 WBC (0-0); Total Cells Counted 100
[2021-01-31 15:26] LABS: Ovalocytes Present
[2021-01-31 16:42] LABS: Glucose,Whole Blood 179 mg/dL (75-99)
[2021-01-31 20:19] LABS: Glucose,Whole Blood 149 mg/dL (75-99)
[2021-01-31] MEDS: ZOLPIDEM 5 MG TAB PO PRN (21:09)
--- NOTE | 2021-02-01 00:13 | P.PN ---
Subjective Progress Note Date: 01/30/21 Principal diagnosis: Hematemesis secondary to GI bleed likely upper GI Symptomatic anemia Patient is a 65-year-old female with a known history of diabetes type 2 [id number], hyperlipidemia, hypertension, depression presents to ER with complaints of throwing up blood. Patient states that she woke up this morning and felt very nauseated and threw up [id number] blood. Patient also noted to have dark-colored stools today and felt lightheaded while she was going to the bathroom. Denied any complaints of abdominal pain. No recent diarrhea. Denied any recent illnesses. No prior history of GI bleed. No complaints of chest pain or shortness of breath. No fever no chills. Denies any taking uzxc-mgr-ibmixgn pain medications. No recent travel. Patient states that she had lab work-up done by her PCP and did not mention anything about the hemoglobin specifically. EKG showed sinus tachycardia Laboratory data showed hemoglobin 11.6 0.5 and MCV 69.5 and platelets 70 Sodium 136 potassium 4.4 chloride 105 bicarb is 19 BUN 37 creatinine 0.97 01-30-21 Patient is lying in the bed. Still feels weak. Denies any dizziness or lightheadedness. Hemoglobin 6.5 today. Patient was transfused with second unit of PRBC. Patient was seen by GI and is planning for EGD tomorrow. Continue to monitor CBC Patient is thrombocytopenic with platelet count dropped down to 51 today. Hematology has seen the patient and work-up was ordered. Liver enzymes are not elevated. Ultrasound of the abdomen showed splenomegaly, bilateral renal cysts. Cholelithiasis. Gallbladder wall thickening at 0.9 cm present. Some pericholecystic fluid is present. Correlate for acute cholecystitis. Patient is being continued on Protonix IV twice daily. GI and hematology is on board. Current medications reviewed. Objective - Vital Signs Vital signs: Vital Signs Temp 98.4 F 01/30/21 08:23 Pulse 91 01/30/21 08:23 Resp 16 01/30/21 08:23 BP 122/62 01/30/21 08:23 Pulse Ox 98 01/30/21 08:23 Intake & Output 01/29/21 01/30/21 01/30/21 18:59 06:59 18:59 Intake Total 0 310 310 Balance 0 310 310 Weight 79.379 kg 80.3 kg Intake: Blood Product 0 310 310 Rc As-1 Unit 0 310 [id number] Rc Irr As1 Unit 0 310 [id number] Other: # Voids 1 1 # Bowel Movements 2 - Exam PHYSICAL EXAMINATION: Patient is lying in the bed comfortably, no acute distress, awake alert and oriented.. HEENT: Normocephalic. Neck is supple. Pupils reactive. Nostrils clear. Oral cavity is moist. Neck reveals no JVD, carotid bruits, or thyromegaly. CHEST EXAMINATION: Trachea is central. Symmetrical expansion. Lung mata clear to auscultation and percussion. CARDIAC: Normal S1, S2 with no gallops. No murmurs ABDOMEN: Soft. Bowel sounds normal. No organomegaly. No abdominal bruits. Extremities: reveal no edema. No clubbing or cyanosis Neurologically awake, alert, oriented x3 with well-coordinated movements. No focal deficits noted Skin: No rash or skin lesions. Psychiatric: Cooperative. Nonsuicidal Musculoskeletal: No joint swelling or deformity. Normal range of motion. - Labs CBC & Chem 7: 01/31/21 13:11 01/31/21 13:11 Labs: Abnormal Lab Results - Last 24 Hours (Table) 01/29/21 01/29/21 01/29/21 Range/Units 14:03 14:03 15:20 RBC 2.98 L (3.80-5.40) m/uL Hgb 6.5 L* (11.4-16.0) gm/dL Hct 20.7 L (34.0-46.0) % MCV 69.5 L (80.0-100.0) fL MCH 21.9 L (25.0-35.0) pg MCHC (31.0-37.0) g/dL RDW 19.2 H (11.5-15.5) % Plt Count 70 L (150-450) k/uL Sodium 136 L (137-145) mmol/L Carbon Dioxide 19 L (22-30) mmol/L BUN 37 H (7-17) mg/dL Glucose 180 H (74-99) mg/dL POC Glucose (mg/dL) (75-99) mg/dL TIBC (228-460) ug/dL Crossmatch See Detail 01/29/21 01/29/21 01/29/21 Range/Units 16:32 20:20 23:52 RBC 2.79 L 3.20 L (3.80-5.40) m/uL Hgb 6.0 L* 7.0 L (11.4-16.0) gm/dL Hct 19.4 L* 23.5 L (34.0-46.0) % MCV 69.5 L 73.3 L (80.0-100.0) fL MCH 21.6 L 21.9 L (25.0-35.0) pg MCHC 29.8 L (31.0-37.0) g/dL RDW 19.3 H 18.6 H (11.5-15.5) % Plt Count 79 L 65 L (150-450) k/uL Sodium (137-145) mmol/L Carbon Dioxide (22-30) mmol/L BUN (7-17) mg/dL Glucose (74-99) mg/dL POC Glucose (mg/dL) 106 H (75-99) mg/dL TIBC (228-460) ug/dL Crossmatch 01/30/21 01/30/21 01/30/21 Range/Units 04:18 04:18 11:47 RBC 2.84 L (3.80-5.40) m/uL Hgb 6.5 L* (11.4-16.0) gm/dL Hct 20.2 L (34.0-46.0) % MCV 71.0 L (80.0-100.0) fL MCH 22.9 L (25.0-35.0) pg MCHC (31.0-37.0) g/dL RDW 18.9 H (11.5-15.5) % Plt Count 63 L (150-450) k/uL Sodium (137-145) mmol/L Carbon Dioxide (22-30) mmol/L BUN (7-17) mg/dL Glucose (74-99) mg/dL POC Glucose (mg/dL) 132 H (75-99) mg/dL TIBC 484 H (228-460) ug/dL Crossmatch Assessment and Plan Assessment: Hematemesis secondary to GI bleed likely upper GI Symptomatic anemia Acute blood loss anemia with hemoglobin level 6.5 on admission Microcytic Iron Deff anemia and thrombocytopenia Hypertension Hyperlipidemia Diabetes type 2 [id number] DVT prophylaxis and GI prophylaxis Plan: Patient will be continued on IV hydration with normal saline and continue with Protonix IV twice daily and monitor hemoglobin every 4 hours and transfuse if hemoglobin is less than 7. Gastroenterology And hematology is on board. Work-up for thrombocytopenia was ordered. Patient is scheduled for EGD tomorrow.. Patient will be current on home blood pressure medications, insulin sliding scale and follow-up closely. Time with Patient: Greater than 30
[2021-02-01] MEDS ORDERED: ACETAMINOPHEN TAB 325 MG TAB PO PRN (03:06)
[2021-02-01 05:23] VITALS: RESP 16; TEMP 97.4
[2021-02-01 06:03] LABS: Glucose,Whole Blood 124 mg/dL (75-99)
[2021-02-01 08:11] LABS: Methylmalonic Acid 0.22 umol/L (<0.40)
[2021-02-01] MEDS: INSULIN ASPART (NovoLOG) 100 UNIT/ML VIAL SQ SCH ×2 (08:15→11:57)
[2021-02-01] MEDS: PANTOPRAZOLE 40 MG/10 ML VIAL IVP SCH (08:20)
[2021-02-01] MEDS: ATORVASTATIN 10 MG TAB PO SCH (08:20)
[2021-02-01] MEDS: ESCITALOPRAM 10 MG TAB PO SCH (08:20)
[2021-02-01] MEDS: LOSARTAN 50 MG TAB PO SCH (08:20)
[2021-02-01 09:13] LABS: Anisocytosis Moderate; Basophils % (A) 0 %; Eosinophils # (A) 0.2 k/uL (0-0.7); Eosinophils % (A) 4 %; HCT 25.1 % (34.0-46.0); HGB 8.2 gm/dL (11.4-16.0); Hypochromasia Moderate; Lymphocytes # (A) 1.5 k/uL (1.0-4.8); Lymphocytes % (A) 33 %; MCH 23.9 pg (25.0-35.0); MCHC 32.6 g/dL (31.0-37.0); MCV 73.4 fL (80.0-100.0); Mean Platelet Volume 12.9; Microcytosis Moderate; Monocytes # (A) 0.3 k/uL (0-1.0); Monocytes % (A) 6 %; Neutrophils # (A) 2.4 k/uL (1.3-7.7); Neutrophils % (A) 54 %; Poikilocytosis Moderate; RBC 3.41 m/uL (3.80-5.40); RDW 20.4 % (11.5-15.5); WBC 4.5 k/uL (3.8-10.6)
[2021-02-01 09:42] LABS: Albumin 3.7 g/dL (3.5-5.0); Calcium 8.8 mg/dL (8.4-10.2); Potassium 3.9 mmol/L (3.5-5.1); Total Bilirubin 1.4 mg/dL (0.2-1.3); Total Protein 6.5 g/dL (6.3-8.2)
[2021-02-01 09:49] LABS: Platelet Count 72 k/uL (150-450)
[2021-02-01 11:43] LABS: Glucose,Whole Blood 137 mg/dL (75-99)
[2021-02-01 12:01] LABS: Large Platelets Present; Ovalocytes Present; Polychromasia Present
[2021-02-01 12:06] VITALS: BP 146/73; PULSE 80
--- NOTE | 2021-02-01 12:37 | P.PN ---
Subjective Progress Note Date: 02/01/21 Principal diagnosis: Severe anemia and moderate thrombocytopenia. Her hemoglobin and platelets are stable today. Unfortunately hematology work-up is not definitive given the draw post transfusion. No new complaints overnight, she is status post GI evaluation 01/[address] Mcclellan. Evidence of Large mid and distal Esophageal Varices suspicious for etiology of recent blood loss anemia. Despite iron studies, because of their inaccurate result based on timing of draw will still move forward with parental iron supplementation given evidence of bleeding source on recent EGD. Objective - Vital Signs Vital signs: Vital Signs Temp 97.4 F L 02/01/21 04:00 Pulse 80 02/01/21 12:00 Resp 16 02/01/21 12:00 BP 146/73 02/01/21 12:00 Pulse Ox 99 02/01/21 12:00 Intake & Output 01/31/21 02/01/21 02/01/21 18:59 06:59 18:59 Intake Total 710 Balance 710 Weight 79.9 kg Intake: IV 100 Intake, IV Titration 250 Amount Lactated Ringers 1,000 ml 250 @ 20 mls/hr IV .Q24H NILDA Rx#:[id number] Oral 360 Other: # Voids 1 - Exam Alert NAD Head: NCAT Neck: Supple Lungs: Diminished bases Heart: Tachy Abdomen: Soft Ext: Pedal edema - Labs CBC & Chem 7: 02/01/21 08:12 02/01/21 08:12 Labs: Abnormal Lab Results - Last 24 Hours (Table) 01/30/21 01/30/21 01/31/21 Range/Units 12:51 12:51 13:11 WBC (3.8-10.6) k/uL RBC (3.80-5.40) m/uL Hgb (11.4-16.0) gm/dL Hct (34.0-46.0) % MCV (80.0-100.0) fL MCH (25.0-35.0) pg MCHC (31.0-37.0) g/dL RDW (11.5-15.5) % Plt Count (150-450) k/uL Retic Count (0.5-2.0) % Haptoglobin (31.2-198.0) mg/dL Sodium (137-145) mmol/L Chloride 109 H (98-107) mmol/L Carbon Dioxide 20 L (22-30) mmol/L BUN 20 H (7-17) mg/dL Glucose 133 H (74-99) mg/dL POC Glucose (mg/dL) (75-99) mg/dL Total Bilirubin 1.5 H (0.2-1.3) mg/dL AST 46 H (14-36) U/L RBC Folate 1,210 H (280 - 791) ng/mL Free Lely LC, Quant 3.11 H (0.33-1.94) mg/dL Free Lambda LC, Quant 6.27 H (0.57-2.63) mg/dL 01/31/21 01/31/21 01/31/21 Range/Units 13:11 16:41 17:23 WBC 2.8 L (3.8-10.6) k/uL RBC 3.49 L (3.80-5.40) m/uL Hgb 8.2 L (11.4-16.0) gm/dL Hct 28.1 L (34.0-46.0) % MCV (80.0-100.0) fL MCH 23.5 L (25.0-35.0) pg MCHC 29.2 L (31.0-37.0) g/dL RDW 19.4 H (11.5-15.5) % Plt Count (150-450) k/uL Retic Count 3.0 H (0.5-2.0) % Haptoglobin (31.2-198.0) mg/dL Sodium (137-145) mmol/L Chloride (98-107) mmol/L Carbon Dioxide (22-30) mmol/L BUN (7-17) mg/dL Glucose (74-99) mg/dL POC Glucose (mg/dL) 179 H (75-99) mg/dL Total Bilirubin (0.2-1.3) mg/dL AST (14-36) U/L RBC Folate (280 - 791) ng/mL Free Lely LC, Quant (0.33-1.94) mg/dL Free Lambda LC, Quant (0.57-2.63) mg/dL 01/31/21 01/31/21 02/01/21 Range/Units 17:23 20:14 06:02 WBC (3.8-10.6) k/uL RBC (3.80-5.40) m/uL Hgb (11.4-16.0) gm/dL Hct (34.0-46.0) % MCV (80.0-100.0) fL MCH (25.0-35.0) pg MCHC (31.0-37.0) g/dL RDW (11.5-15.5) % Plt Count (150-450) k/uL Retic Count (0.5-2.0) % Haptoglobin <10.0 L (31.2-198.0) mg/dL Sodium (137-145) mmol/L Chloride (98-107) mmol/L Carbon Dioxide (22-30) mmol/L BUN (7-17) mg/dL Glucose (74-99) mg/dL POC Glucose (mg/dL) 149 H 124 H (75-99) mg/dL Total Bilirubin (0.2-1.3) mg/dL AST (14-36) U/L RBC Folate (280 - 791) ng/mL Free Lely LC, Quant (0.33-1.94) mg/dL Free Lambda LC, Quant (0.57-2.63) mg/dL 02/01/21 02/01/21 02/01/21 Range/Units 08:12 08:12 11:42 WBC (3.8-10.6) k/uL RBC 3.41 L (3.80-5.40) m/uL Hgb 8.2 L (11.4-16.0) gm/dL Hct 25.1 L (34.0-46.0) % MCV 73.4 L D (80.0-100.0) fL MCH 23.9 L (25.0-35.0) pg MCHC (31.0-37.0) g/dL RDW 20.4 H (11.5-15.5) % Plt Count 72 L (150-450) k/uL Retic Count (0.5-2.0) % Haptoglobin (31.2-198.0) mg/dL Sodium 134 L (137-145) mmol/L Chloride (98-107) mmol/L Carbon Dioxide (22-30) mmol/L BUN (7-17) mg/dL Glucose 182 H (74-99) mg/dL POC Glucose (mg/dL) 137 H (75-99) mg/dL Total Bilirubin 1.4 H (0.2-1.3) mg/dL AST 38 H (14-36) U/L RBC Folate (280 - 791) ng/mL Free Lely LC, Quant (0.33-1.94) mg/dL Free Lambda LC, Quant (0.57-2.63) mg/dL Assessment and Plan (1) Hypochromic microcytic anemia Current Visit: Yes Status: Acute Priority: High Code(s): D50.9 - IRON DEFICIENCY ANEMIA, UNSPECIFIED SNOMED Code(s): 76971341 (2) Thrombocytopenia Current Visit: Yes Status: Acute Priority: High Code(s): D69.6 - THROMBOCYTOPENIA, UNSPECIFIED SNOMED Code(s): 784239582 Plan: Cytopenias most likely related to EETOh and Liver disease Transfuse to keep Hemoglbin greater than 7 Unable to determine extent of iron deficiency given transfusion pre blood draw Hemolytic work-up positice, however again being post transfused blood draw, may not be indicative of more than a post transfusion hemolysis, we can follow and redraw at later date to re-evaluate, especially if cytopenias persist. Esophageal Varices identified during EGD, status post ligation. Will Rx Parental Iron while inpatient, patient should be monitored outpatient for any recurring bleeding and Iron replaced. Will set up for 4 week follow-up in office.
[2021-02-01] MEDS ORDERED: SODIUM FERRIC GLUCONAT-SUCROSE 125 MG in SODIUM CHLORIDE 0.9% 100 ML IVPB SCH (13:00)
[2021-02-01 13:05] LABS: Platelet Count 64 k/uL (150-450)
--- NOTE | 2021-02-01 13:39 | P.PN ---
Subjective Progress Note Date: 01/31/21 Principal diagnosis: Hematemesis secondary to GI bleed likely upper GI Symptomatic anemia Patient is a 65-year-old female with a known history of diabetes type 2 [id number]-[id number], hyperlipidemia, hypertension, depression presents to ER with complaints of throwing up blood. Patient states that she woke up this morning and felt very nauseated and threw up rjzv-yokdwd-mvxfydf blood. Patient also noted to have dark-colored stools today and felt lightheaded while she was going to the bathroom. Denied any complaints of abdominal pain. No recent diarrhea. Denied any recent illnesses. No prior history of GI bleed. No complaints of chest pain or shortness of breath. No fever no chills. Denies any taking iucj-scl-zuoizze pain medications. No recent travel. Patient states that she had lab work-up done by her PCP and did not mention anything about the hemoglobin specifically. EKG showed sinus tachycardia Laboratory data showed hemoglobin 11.6 0.5 and MCV 69.5 and platelets 70 Sodium 136 potassium 4.4 chloride 105 bicarb is 19 BUN 37 creatinine 0.97 01-30-21 Patient is lying in the bed. Still feels weak. Denies any dizziness or lightheadedness. Hemoglobin 6.5 today. Patient was transfused with second unit of PRBC. Patient was seen by GI and is planning for EGD tomorrow. Continue to monitor CBC Patient is thrombocytopenic with platelet count dropped down to 51 today. Hematology has seen the patient and work-up was ordered. Liver enzymes are not elevated. Ultrasound of the abdomen showed splenomegaly, bilateral renal cysts. Cholelithiasis. Gallbladder wall thickening at 0.9 cm present. Some pericholecystic fluid is present. Correlate for acute cholecystitis. Patient is being continued on Protonix IV twice daily. GI and hematology is on board. 01/31/2021 Patient is awake alert and oriented. Denied any complaints of abdominal pain. No bowel movement today. Hemoglobin is fairly stable at 8.2. Platelet count is still low. Workup for thrombocytopenia was ordered but could not be definitive since patient is already received blood transfusion. No nausea vomiting or diarrhea. No dysuria or hematuria. No cough or sputum production. No fever no chills. Patient had EGD today. IMPRESSION: 1. Large mid and distal esophageal varices with red birdie signs suspicious for recent source of bleeding status post variceal ligation as described above. 2. Mild portal hypertensive gastropathy. Patient was started on a clear liquid diet and advance as tolerated. Also will start on Inderal 10 mg 3 times daily as per GI recommendations. Patient will need to follow up with GI for further workup of chronic liver disease. Current medications reviewed. Objective - Vital Signs Vital signs: Vital Signs Temp 97.7 F 01/31/21 20:00 Pulse 70 01/31/21 20:00 Resp 16 01/31/21 20:00 BP 152/80 01/31/21 20:00 Pulse Ox 99 01/31/21 20:00 Intake & Output 01/31/21 01/31/21 02/01/21 06:59 18:59 06:59 Intake Total 900 710 Balance 900 710 Weight 79.7 kg Intake: IV 100 Intake, IV Titration 900 250 Amount Lactated Ringers 1,000 ml 250 @ 20 mls/hr IV .Q24H [facility] Rx#:[id number] Sodium Chloride 0.9% 1, 900 000 ml @ 75 mls/hr IV . [id number] ONE Rx#:[id number] Oral 360 Other: # Voids 1 1 - Exam PHYSICAL EXAMINATION: Patient is lying in the bed comfortably, no acute distress, awake alert and oriented.. HEENT: Normocephalic. Neck is supple. Pupils reactive. Nostrils clear. Oral cavity is moist. Neck reveals no JVD, carotid bruits, or thyromegaly. CHEST EXAMINATION: Trachea is central. Symmetrical expansion. Lung mata clear to auscultation and percussion. CARDIAC: Normal S1, S2 with no gallops. No murmurs ABDOMEN: Soft. Bowel sounds normal. No organomegaly. No abdominal bruits. Extremities: reveal no edema. No clubbing or cyanosis Neurologically awake, alert, oriented x3 with well-coordinated movements. No focal deficits noted Skin: No rash or skin lesions. Psychiatric: Cooperative. Nonsuicidal Musculoskeletal: No joint swelling or deformity. Normal range of motion. - Labs CBC & Chem 7: 02/01/21 12:35 02/01/21 08:12 Labs: Abnormal Lab Results - Last 24 Hours (Table) 01/30/21 01/30/21 01/30/21 Range/Units 12:51 12:51 12:51 WBC (3.8-10.6) k/uL RBC (3.80-5.40) m/uL Hgb (11.4-16.0) gm/dL Hct (34.0-46.0) % MCH (25.0-35.0) pg MCHC (31.0-37.0) g/dL RDW (11.5-15.5) % Retic Count (0.5-2.0) % Chloride (98-107) mmol/L Carbon Dioxide (22-30) mmol/L BUN (7-17) mg/dL Glucose (74-99) mg/dL POC Glucose (mg/dL) (75-99) mg/dL Ferritin 8.9 L (10.0-291.0) ng/mL Total Bilirubin (0.2-1.3) mg/dL AST (14-36) U/L RBC Folate 1,210 H (280 - 791) ng/mL Free [place] LC, Quant 3.11 H (0.33-1.94) mg/dL Free Lambda LC, Quant 6.27 H (0.57-2.63) mg/dL 01/31/21 01/31/21 01/31/21 Range/Units 11:39 13:11 13:11 WBC 2.8 L (3.8-10.6) k/uL RBC 3.49 L (3.80-5.40) m/uL Hgb 8.2 L (11.4-16.0) gm/dL Hct 28.1 L (34.0-46.0) % MCH 23.5 L (25.0-35.0) pg MCHC 29.2 L (31.0-37.0) g/dL RDW 19.4 H (11.5-15.5) % Retic Count (0.5-2.0) % Chloride 109 H (98-107) mmol/L Carbon Dioxide 20 L (22-30) mmol/L BUN 20 H (7-17) mg/dL Glucose 133 H (74-99) mg/dL POC Glucose (mg/dL) 121 H (75-99) mg/dL Ferritin (10.0-291.0) ng/mL Total Bilirubin 1.5 H (0.2-1.3) mg/dL AST 46 H (14-36) U/L RBC Folate (280 - 791) ng/mL Free [place] LC, Quant (0.33-1.94) mg/dL Free Lambda LC, Quant (0.57-2.63) mg/dL 01/31/21 01/31/21 01/31/21 Range/Units 16:41 17:23 20:14 WBC (3.8-10.6) k/uL RBC (3.80-5.40) m/uL Hgb (11.4-16.0) gm/dL Hct (34.0-46.0) % MCH (25.0-35.0) pg MCHC (31.0-37.0) g/dL RDW (11.5-15.5) % Retic Count 3.0 H (0.5-2.0) % Chloride (98-107) mmol/L Carbon Dioxide (22-30) mmol/L BUN (7-17) mg/dL Glucose (74-99) mg/dL POC Glucose (mg/dL) 179 H 149 H (75-99) mg/dL Ferritin (10.0-291.0) ng/mL Total Bilirubin (0.2-1.3) mg/dL AST (14-36) U/L RBC Folate (280 - 791) ng/mL Free [place] LC, Quant (0.33-1.94) mg/dL Free [place]ambda LC, Quant (0.57-2.63) mg/dL Assessment and Plan Assessment: Hematemesis secondary to GI bleed likely upper GI H status post EGD showed large mid and distal esophageal varices with suspected source of recent bleed. Symptomatic anemia Acute blood loss anemia with hemoglobin level 6.5 on admission Microcytic Iron Deff anemia and thrombocytopenia Hypertension Hyperlipidemia Diabetes type 2 uyo-bvhytdc-sggtqbtsz DVT prophylaxis and GI prophylaxis Plan: Patient will be continued on IV hydration with normal saline and continue with Protonix IV twice daily and monitor hemoglobin every 4 hours and transfuse if hemoglobin is less than 7. Gastroenterology And hematology is on board. Work-up for thrombocytopenia was ordered. Patient underwent EGD today. Patient will be current on home blood pressure medications, insulin sliding scale and follow-up closely. Time with Patient: Greater than 30
--- NOTE | 2021-02-01 14:14 | P.PN ---
Subjective Progress Note Date: 02/01/21 Principal diagnosis: Upper GI bleed 65-year-old female who presented to the emergency department after 3 episodes of coffee-ground emesis an admitting hemoglobin of 6.5. She is status post 2 units of PRBC transfusion. She also underwent a EGD yesterday and found esophageal varices that were banded along with mild portal hypertensive gastropathy. After discussing further with the patient and she does recall a history of which she believes was hepatitis A around the age of 17. She also states that she believes she may have history of fatty liver. She used to denying any history of alcohol use. She denies any known liver disease. Abdominal ultrasound had shown splenomegaly and heterogeneous liver with a small amount of ascites surrounding. Hematology did see patient and labs are currently pending. She denies any further coffee-ground emesis or hematemesis, denies any blood in her stool. She is tolerating a clear liquid diet, no nausea or vomiting or abdomina l pain. Objective - Vital Signs Vital signs: Vital Signs Temp 97.4 F L 02/01/21 04:00 Pulse 78 02/01/21 08:00 Resp 16 02/01/21 08:00 BP 139/64 02/01/21 08:00 Pulse Ox 100 02/01/21 08:00 Intake & Output 01/31/21 02/01/21 02/01/21 18:59 06:59 18:59 Intake Total 710 Balance 710 Weight 79.9 kg Intake: IV 100 Intake, IV Titration 250 Amount Lactated Ringers 1,000 ml 250 @ 20 mls/hr IV .Q24H [facility] Rx#:[id number] Oral 360 Other: # Voids 1 - Exam General appearance: The patient is alert, oriented, appears in no acute distress. HET: Head is normocephalic and atraumatic. Conjunctiva pink. Sclera anicteric. Neck: Supple without lymphadenopathy. Abdomen: Soft, nontender, nondistended with bowel sounds. No guarding or rigidity. Extremities: Normal skin color and turgor. No pedal edema Skin: No rashes, no jaundice Neurological: No focal deficits. Alert and oriented -3. - Labs CBC & Chem 7: 02/01/21 12:35 02/01/21 08:12 Labs: Abnormal Lab Results - Last 24 Hours (Table) 01/30/21 01/30/21 01/31/21 Range/Units 12:51 12:51 11:39 WBC (3.8-10.6) k/uL RBC (3.80-5.40) m/uL Hgb (11.4-16.0) gm/dL Hct (34.0-46.0) % MCH (25.0-35.0) pg MCHC (31.0-37.0) g/dL RDW (11.5-15.5) % Retic Count (0.5-2.0) % Haptoglobin (31.2-198.0) mg/dL Chloride (98-107) mmol/L Carbon Dioxide (22-30) mmol/L BUN (7-17) mg/dL Glucose (74-99) mg/dL POC Glucose (mg/dL) 121 H (75-99) mg/dL Total Bilirubin (0.2-1.3) mg/dL AST (14-36) U/L RBC Folate 1,210 H (280 - 791) ng/mL Free [place] LC, Quant 3.11 H (0.33-1.94) mg/dL Free Lambda LC, Quant 6.27 H (0.57-2.63) mg/dL 01/31/21 01/31/21 01/31/21 Range/Units 13:11 13:11 16:41 WBC 2.8 L (3.8-10.6) k/uL RBC 3.49 L (3.80-5.40) m/uL Hgb 8.2 L (11.4-16.0) gm/dL Hct 28.1 L (34.0-46.0) % MCH 23.5 L (25.0-35.0) pg MCHC 29.2 L (31.0-37.0) g/dL RDW 19.4 H (11.5-15.5) % Retic Count (0.5-2.0) % Haptoglobin (31.2-198.0) mg/dL Chloride 109 H (98-107) mmol/L Carbon Dioxide 20 L (22-30) mmol/L BUN 20 H (7-17) mg/dL Glucose 133 H (74-99) mg/dL POC Glucose (mg/dL) 179 H (75-99) mg/dL Total Bilirubin 1.5 H (0.2-1.3) mg/dL AST 46 H (14-36) U/L RBC Folate (280 - 791) ng/mL Free [place] LC, Quant (0.33-1.94) mg/dL Free Lambda LC, Quant (0.57-2.63) mg/dL 01/31/21 01/31/21 01/31/21 Range/Units 17:23 17:23 20:14 WBC (3.8-10.6) k/uL RBC (3.80-5.40) m/uL Hgb (11.4-16.0) gm/dL Hct (34.0-46.0) % MCH (25.0-35.0) pg MCHC (31.0-37.0) g/dL RDW (11.5-15.5) % Retic Count 3.0 H (0.5-2.0) % Haptoglobin <10.0 L (31.2-198.0) mg/dL Chloride (98-107) mmol/L Carbon Dioxide (22-30) mmol/L BUN (7-17) mg/dL Glucose (74-99) mg/dL POC Glucose (mg/dL) 149 H (75-99) mg/dL Total Bilirubin (0.2-1.3) mg/dL AST (14-36) U/L RBC Folate (280 - 791) ng/mL Free [place] LC, Quant (0.33-1.94) mg/dL Free [place]ambda LC, Quant (0.57-2.63) mg/dL 02/01/21 Range/Units 06:02 WBC (3.8-10.6) k/uL RBC (3.80-5.40) m/uL Hgb (11.4-16.0) gm/dL Hct (34.0-46.0) % MCH (25.0-35.0) pg MCHC (31.0-37.0) g/dL RDW (11.5-15.5) % Retic Count (0.5-2.0) % Haptoglobin (31.2-198.0) mg/dL Chloride (98-107) mmol/L Carbon Dioxide (22-30) mmol/L BUN (7-17) mg/dL Glucose (74-99) mg/dL POC Glucose (mg/dL) 124 H (75-99) mg/dL Total Bilirubin (0.2-1.3) mg/dL AST (14-36) U/L RBC Folate (280 - 791) ng/mL Free [place] LC, Quant (0.33-1.94) mg/dL Free Lambda LC, Quant (0.57-2.63) mg/dL Assessment and Plan (1) Microcytic anemia Narrative/Plan: 65-year-old female who presented to the emergency department after 3 episodes of coffee-ground emesis. Patient denies any previous history of GI bleed, denies any anticoagulation or NSAID use. On admission she was noted to have a hemoglobin of 6.0 with CBC consistent with a microcytic anemia. She received 1 unit of PRBC transfusion with a repeat hemoglobin of 7.0. Today her hemoglobin again was 6.5 and she was given a second unit of PRBC transfusion. Is also noted to have thrombocytopenia with a platelet count today of 63,000. Patient denies any previous history of thrombocytopenia. She states she does follow up regularly with her PCP. She denied any abdominal pain associated with nausea and vomiting, denies any history of peptic ulcer disease, does get occasional heartburn. No previous EGD but has had a screening colonoscopy approximately 10 years ago which she states was normal and she is due to have one in the upcoming year. Patient lives consistent with a microcytic anemia likely due to acute GI blood loss. I discussed with patient won't recommend proceeding with an EGD. Possible etiologies include peptic ulcer disease, gastritis, hepatitis, AVM, or other etiologies. Patient underwent EGD, with evidence of esophageal varices that were banded. Patient also had mild portal hypertensive gastropathy. Likely related to underlying liver disease. Current Visit: Yes Status: Acute Code(s): D50.9 - IRON DEFICIENCY ANEMIA, UNSPECIFIED SNOMED Code(s): 990893554 (2) Upper GI bleed Current Visit: Yes Status: Acute Code(s): K92.2 - GASTROINTESTINAL HEMORRHAGE, UNSPECIFIED SNOMED Code(s): 12341160 (3) Thrombocytopenia Narrative/Plan: Consult to hematology Current Visit: Yes Status: Acute Priority: High Code(s): D69.6 - THROMBOCYTOPENIA, UNSPECIFIED SNOMED Code(s): 679939038 Plan: 1. Continue symptomatic and supportive care 2. Protonix 40 mg IV twice a day 3. May have consistent carbohydrate diet 4. Hematology on consult, appreciate their recommendations 5. Patient is cleared by gastroenterology for discharge. Patient will need close outpatient follow-up. Thank you for this consultation. Dr. Doris Mcclellan I agree with the dictator's note, documented as a scribe by Dara Mcdermott.
[2021-02-01] MEDS ORDERED: PROPRANOLOL 10 MG TAB PO SCH (16:00)
[2021-02-02 00:35] LABS: Hepatitis A Antibody IgM Nonreactive (Nonreactive); Hepatitis B Core IgM Nonreactive (Nonreactive); Hepatitis C IgG Antibody Nonreactive (Nonreactive)
[2021-02-02 00:36] LABS: Ceruloplasmin 23.8 mg/dL (20.0-60.0)
[2021-02-02 00:58] LABS: Alpha Fetoprotein, Tumor Mkr <1.82 ng/mL (0.00-7.90)
[2021-02-02 12:02] LABS: Hepatitis B Surface Antigen Nonreactive (Nonreactive)
[2021-02-05 10:57] LABS: Albumin 3.64 g/dL (3.80-4.90); Gamma Globulin 0.89 g/dL (0.70-1.50)
== END 2021-02-01 15:27 | disposition home or self-care (01) | DRG 369 ==
LOC: EC 12:49 → 3SCARD 16:06
PROVIDERS: ADMIT Internal Medicine; ATTEND Internal Medicine
PROC: 0DJ08ZZ Inspection of Upper Intestinal Tract, Via Natural or Artificial Opening Endoscopic (ICD-10-PCS; principal; 2021-01-29)
PROC: 06L38CZ Occlusion of Esophageal Vein with Extraluminal Device, Via Natural or Artificial Opening Endoscopic (ICD-10-PCS; 2021-01-29)
DX: I85.01 Esophageal varices with bleeding (principal); D62 Acute posthemorrhagic anemia; K76.6 Portal hypertension; B15.9 Hepatitis A without hepatic coma; E11.9 Type 2 diabetes mellitus without complications; E78.5 Hyperlipidemia, unspecified; Z20.822 Contact with and (suspected) exposure to COVID-19; I10 Essential (primary) hypertension; K31.89 Other diseases of stomach and duodenum; Z79.899 Other long term (current) drug therapy; Z79.84 Long term (current) use of oral hypoglycemic drugs; F32.9 Major depressive disorder, single episode, unspecified; D69.6 Thrombocytopenia, unspecified; K80.20 Calculus of gallbladder without cholecystitis without obstruction; N28.1 Cyst of kidney, acquired
CPT/HCPCS: 36415; 43244; 76700; 80053; 80074; 82103; 82105; 82390; 82607; 82728; 82747; 83010; 83036; 83540; 83550; 83615; 83735; 83883; 83921; 84165; 85025; 85045; 85049; 85610; 85730; 86038; 86334; 86431; 86850; 86900; 86901; 86920; 87635; 93005; 99291

== ENCOUNTER 2021-04-10 07:22 | Day surgery (SDC) | payer MEDICARE ==
[2021-04-04 15:46] VITALS: BMI 28.3
[~2021-04-10 07:22] MED LIST: LACTATED RINGERS 1,000 ML IV SCH; LIDOCAINE 1% (10MG/ML) FOR IV START INTRADERMA PRN
[2021-04-10 07:53] VITALS: TEMP 97.4
[2021-04-10 08:04] LABS: Glucose,Whole Blood 104 mg/dL (75-99)
[2021-04-10] MEDS ORDERED: LIDOCAINE 1% INJ 10MG/ML (20 ML MDV) ONE (08:32)
[2021-04-10] MEDS ORDERED: PROPOFOL 10 MG/ML 20 ML VIAL IV ONE (08:32)
--- NOTE | 2021-04-10 08:46 | P.PCN ---
Date of Procedure: 04/10/21 Procedure(s) Performed: BRIEF HISTORY: Patient is a 66-year-old, pleasant, female with history of cryptogenic cirrhosis of the liver recently was admitted to the hospital in January 2021 with acute GI bleed and anemia with hemoglobin of 6.4 g/dL. It again the 10 revealed large mid and distal esophageal varices 40 cm esophageal variceal ligation. Workup for chronic liver disease was negative. She is scheduled for repeat upper endoscopy for recent ligation today.. PROCEDURE PERFORMED: Esophagogastroduodenoscopy with esophageal recently. PREOPERATIVE DIAGNOSIS: Follow-up esophageal varices. IV sedation per anesthesia. PROCEDURE: After informed consent was obtained, the patient was brought into the endoscopy unit. IV sedation was administered by Anesthesia under continuous monitoring. Initially the Olympus GIF-140 video endoscope was inserted into the mouth. Esophagus intubated without any difficulty. It was gradually advanced into the stomach and duodenum and carefully examined. The bulb and the second part of the duodenum appeared normal. The scope at this time was withdrawn to the stomach, adequately insufflated with air, and upon careful examination, mucosa of the antrum, appeared normal. The changes consistent with mild to moderate portal hypertensive gastropathy involving the body, cardia and the fundus of the stomach.. The scope was then withdrawn into the esophagus. The GE junction was located at 39 cm from the incisors. There were large esophageal varices noted in the distal esophagus with red birdie vázquez noted. At this time the scope was removed and esophageal variceal ligation was introduced of the scope and esophagus intubated without difficulty. It was gradually advanced into the distal esophagus. Total of 5 bands were deployed in the distal esophageal varices in a spiral fashion. The rest of the esophagus appeared normal. There were no erosions or ulcerations seen and the patient tolerated the procedure well. IMPRESSION: 1. Large distal esophageal varices status post variceal ligation as described above. 2. Mild to moderate portal hypertensive gastropathy.. RECOMMENDATIONS: The findings of this examination were discussed with the patient as well as a family. She is about to be on a soft diet today. Continue Inderal 10 mg 3 times daily and she'll be seen in office in 4-6 weeks. We'll repeat upper endoscopy with variceal ligation in one to 2 months. In the meantime she will continue on Inderal 10 mg 3 times daily..
[2021-04-10 09:09] VITALS: BP 118/71; PULSE 72; RESP 16
== END 2021-04-10 09:55 | disposition home or self-care (01) ==
LOC: ORWHC2ENDO 07:22
PROVIDERS: ATTEND Internal Medicine Gastroenterology
DX: I85.00 Esophageal varices without bleeding (principal); K74.69 Other cirrhosis of liver; K76.6 Portal hypertension; K31.89 Other diseases of stomach and duodenum; I10 Essential (primary) hypertension; E11.9 Type 2 diabetes mellitus without complications; F41.9 Anxiety disorder, unspecified; K92.2 Gastrointestinal hemorrhage, unspecified; Z79.899 Other long term (current) drug therapy; Z88.2 Allergy status to sulfonamides
CPT/HCPCS: 43244; J2001; J2704

== ENCOUNTER → 2021-04-18 | Outpatient (CLI) | payer MEDICARE ==
[2021-04-18 19:25] LABS: Anion Gap 12.5 mmol/L (10.00-18.00); Carbon Dioxide 21.5 mmol/L (20.0-27.5); Ferritin 9.4 ng/mL (10.0-291.0); Potassium 4.7 mmol/L (3.5-5.5)
[2021-04-18 19:26] LABS: African American GFR (CKD) 67.5 (60.0-200.0); Albumin 4.1 g/dL (3.8-4.9); Albumin/Globulin Ratio 1.46 (1.60-3.17); Calcium 9.3 mg/dL (8.7-10.3); Globulin 2.8 g/dL (1.6-3.3); Non-African American GFR(CKD) 58.2 (60.0-200.0); Total Bilirubin 0.5 mg/dL (0.30-1.20); Total Protein 6.9 g/dL (6.2-8.2)
[2021-04-18 19:45] LABS: Basophils # (A) 0.01 X 10*3/uL (0.00-0.10); Basophils % (A) 0.3 %; Eosinophils # (A) 0.15 X 10*3/uL (0.04-0.35); Eosinophils % (A) 5.1 %; HCT 29.7 % (37.2-46.3); HGB 8.3 g/dL (12.0-15.0); Hypochromasia (M) 2+; Lymphocytes # (A) 1.03 X 10*3/uL (0.90-5.00); Lymphocytes % (A) 34.7 %; MCH 21.3 pg (27.0-32.0); MCHC 27.9 g/dL (32.0-37.0); MCV 76.2 fL (80.0-97.0); Monocytes % (A) 10.1 %; Neutrophils # (A) 1.47 X 10*3/uL (1.80-7.70); Neutrophils % (A) 49.5 %; Platelet Count 81 X 10*3/uL (140-440); WBC 2.97 X 10*3/uL (4.50-10.00)
[2021-04-18 22:38] LABS: Hepatitis B Surface Antigen Nonreactive (Nonreactive)
[2021-04-18 23:50] LABS: Ceruloplasmin 25.5 mg/dL (20.0-60.0); Hepatitis C IgG Antibody Nonreactive (Nonreactive)
[2021-04-19 00:59] LABS: % Iron Saturation 5.33 (12.00-45.00)
== END | disposition home or self-care (01) ==
LOC: LABWHC1 10:53
PROVIDERS: ATTEND Internal Medicine Gastroenterology
DX: R74.01 Elevation of levels of liver transaminase levels (principal)
CPT/HCPCS: 36415; 80053; 82103; 82390; 82728; 83516; 83540; 83550; 85025; 86038; 86803; 87340

== ENCOUNTER 2021-06-20 07:54 | Day surgery (SDC) | payer MEDICARE ==
[2021-06-18 15:12] VITALS: BMI 29.1
[2021-06-20 08:41] VITALS: TEMP 97
[2021-06-20 08:55] LABS: Glucose,Whole Blood 88 mg/dL (75-99)
[2021-06-20] MEDS ORDERED: PROPOFOL 10 MG/ML 20 ML VIAL IV ONE (09:15)
[2021-06-20] MEDS ORDERED: LIDOCAINE 1% INJ 10MG/ML (20 ML MDV) ONE (09:15)
--- NOTE | 2021-06-20 09:37 | P.PCN ---
Date of Procedure: 06/20/21 Procedure(s) Performed: BRIEF HISTORY: Patient is a 66-year-old, pleasant, with history of nonalcoholic fatty liver disease with cirrhosis of the liver and prior history of esophageal variceal bleeding over a number of 2020. She underwent EGD with variceal ligation twice in the last 3 months. She is scheduled for repeat upper endoscopy with variceal ligation.. PROCEDURE PERFORMED: Esophagogastroduodenoscopy with variceal ligation and biopsy. PREOPERATIVE DIAGNOSIS: Follow-up esophageal varices. IV sedation per anesthesia. PROCEDURE: After informed consent was obtained, the patient was brought into the endoscopy unit. IV sedation was administered by Anesthesia under continuous monitoring. Initially the Olympus GIF-140 video endoscope was inserted into the mouth. Esophagus intubated without any difficulty. It was gradually advanced into the stomach and duodenum and carefully examined. The bulb and the second part of the duodenum appeared normal. The scope at this time was withdrawn to the stomach, adequately insufflated with air, and upon careful examination, mucosa of the antrum, had a 1 cm antral ulcer which was biopsied. The body, cardia and the fundus had changes consistent with mild to moderate portal hypertensive gastropathy.. The scope was then withdrawn into the esophagus. The GE junction was located at 39 cm from the incisors. There were large esophageal varices seen both in the mid and distal esophagus. At this time the scope was removed and esophageal variceal ligation equipment was introduced into the tip of the scope and esophagus intubated without any difficulty and was gradually advanced into the distal esophagus. Using suction total of 6 bands were dep loyed in a spiral fashion. The proximal esophagus appeared normal and the patient appeared normal. There were no erosions or ulcerations seen and the patient tolerated the procedure well. IMPRESSION: 1. 1 cm antral ulcer status post biopsy. 2. Large mid and distal esophageal varices status post variceal ligation as described above. RECOMMENDATIONS: The findings of this examination were discussed with the patient as well as his family. She was advised to remain on a soft diet today. Continue with Inderal 20 mg 3 times daily.Repeat upper endoscopy with variceal ligation in 2-3 months.
[2021-06-20 09:43] VITALS: RESP 16
[2021-06-20] MEDS ORDERED: ENALAPRILAT 1.25 MG/ML 1 ML VIAL ONE (10:01)
[2021-06-20] MEDS ORDERED: ENALAPRILAT 1.25 MG/ML 1 ML VIAL IV ONE (10:03)
[2021-06-20 10:38] VITALS: BP 161/73; PULSE 76
== END 2021-06-20 10:34 | disposition home or self-care (01) ==
LOC: ORWHC2ENDO 07:54
PROVIDERS: ATTEND Internal Medicine Gastroenterology
DX: K74.69 Other cirrhosis of liver (principal); I85.10 Secondary esophageal varices without bleeding; K25.9 Gastric ulcer, unspecified as acute or chronic, without hemorrhage or perforation; K29.00 Acute gastritis without bleeding; K31.A11 Gastric intestinal metaplasia without dysplasia, involving the antrum; K76.6 Portal hypertension; K31.89 Other diseases of stomach and duodenum; I10 Essential (primary) hypertension; E78.5 Hyperlipidemia, unspecified; E11.9 Type 2 diabetes mellitus without complications; Z98.890 Other specified postprocedural states; F41.9 Anxiety disorder, unspecified; Z98.891 History of uterine scar from previous surgery; Z97.2 Presence of dental prosthetic device (complete) (partial); Z79.899 Other long term (current) drug therapy; Z79.84 Long term (current) use of oral hypoglycemic drugs; Z88.2 Allergy status to sulfonamides
CPT/HCPCS: 88305; 88342; 43239; 43244; J2001; J2704; 43255

== ENCOUNTER 2021-09-25 06:59 | Inpatient (IN) | payer MEDICARE ==
[2021-09-20 15:56] VITALS: BMI 29.1
[~2021-09-25 06:59] MED LIST changes: -LACTATED RINGERS 1,000 ML IV SCH
[2021-09-25] MEDS: LACTATED RINGERS 1,000 ML IV SCH (07:48)
[2021-09-25 08:02] LABS: Glucose,Whole Blood 115 mg/dL (70-110)
[2021-09-25] MEDS ORDERED: LIDOCAINE 2% INJ 20 MG/ML (2 ML VIAL) ONE (08:24)
[2021-09-25] MEDS ORDERED: fentaNYL (PF) 50 MCG/ML 2 ML AMP ONE (08:24)
[2021-09-25] MEDS ORDERED: PROPOFOL 10 MG/ML 20 ML VIAL IV ONE (08:24)
[2021-09-25] MEDS ORDERED: ROCURONIUM 10 MG/ML (5 ML VIAL) IV ONE (08:24)
[2021-09-25] MEDS ORDERED: MIDAZOLAM 2 MG/2 ML VIAL ONE (08:24)
[2021-09-25] MEDS ORDERED: SUCCINYLCHOLINE CHLORIDE 100 MG/5 ML SYR IV ONE (08:24)
[2021-09-25] MEDS ORDERED: LIDOCAINE 4% LTA KIT (4 ML) TOPICAL ONE (08:24)
[2021-09-25] MEDS ORDERED: propofoL 100 ML IV ONE (09:39)
--- NOTE | 2021-09-25 09:48 | P.PCN ---
Date of Procedure: 09/25/21 Procedure(s) Performed: BRIEF HISTORY: Patient is a 66-year-old, pleasant, white female with history of liver cirrhosis/esophageal varices is scheduled for an upper endoscopy on an elective basis for esophageal variceal ligation. Her last EGD with variceal ligation was performed in May 2021 and at that timewas noted to have large esophageal varices. PROCEDURE PERFORMED: Esophagogastroduodenoscopy with variceal ligation. PREOPERATIVE DIAGNOSIS: Follow-up large esophageal varices. Gen. anesthesia PROCEDURE: After informed consent was obtained, the patient was brought into the endoscopy unit. IV sedation was administered by Anesthesia under continuous monitoring. Initially the Olympus GIF-140 video endoscope was inserted into the mouth. Esophagus intubated without any difficulty. It was gradually advanced into the stomach and duodenum and carefully examined. The bulb and the second part of the duodenum appeared normal. The scope at this time was withdrawn to the stomach, adequately insufflated with air, and upon careful examination, mucosa of the antrum, body, cardia and the fundus had changes consistent with mild to moderate portal hypertensive gastropathy. The scope was then withdrawn into the esophagus. The GE junction was located at 39 cm from the incisors. In the distal esophagus. There large esophageal varices identified via the varix having a small protuberance noted. At this time the scope was withdrawn and the esophageal variceal ligation equipment was introduced into the tip of the scope and esophagus intubated without any difficulty. The scope was gradually advanced into the distal esophagus. The varix was located at 38 cm from the incisors. I was suctioning the varix at the present the band and immediately there was significant amount of bleeding noted. Following this I started deploying the band for the same bleeding esophageal varix was was not s uccessful. At this time the patient continued to actively bleed. The scope was removed. It was decided to intubate the patient to protect her airway. After the patient was intubated and under general anesthesia repeat EGD was performed. The scope was then advanced into the distal esophagus and the actively bleeding varix was identified. Using suction and was able to deploy one band was succe ssfully of the bleeding varix and bleeding immediately subsided. The scope was advanced into the stomach and the old blood was all suctioned out. There was approximately 200 mL of blood loss noted. The scope was then withdrawn into the esophagus. I observed for 5 minutes and no further bleeding was noted. I could the place 2 more bands in the adjacent esophageal varix but somehow the stent co uld not be deployed. At this time I proceeded not to proceed with any variceal ligation. The patient tolerated the procedure well. And she will be transferred to the intensive care unit for close monitoring. IMPRESSION: 1. Distal esophageal large varix with active bleeding as the band was being deploying status post variceal ligation and control of bleeding 2. Moderate to severe portal hypertensive gastropathy. RECOMMENDATIONS: The findings of this examination were discussed with the patient As well as a family. She will be transferred to intensive care unit. Family was notified of the events that have occurred in the endoscopy unit. She will be intubated for today. We will obtain CBC, CMP and PT/INR. Start her on IV Sandostatin drip and IV Protonix. Monitor her closely. .
[2021-09-25] MEDS ORDERED: NALOXONE 0.4 MG/ML 1 ML VIAL IV PRN (10:09)
[2021-09-25] MEDS ORDERED: PANTOPRAZOLE 40 MG/10 ML VIAL IV SCH (10:15)
[2021-09-25] MEDS: OCTREOTIDE 500 MCG in SODIUM CHLORIDE 0.9% 250 ML IV SCH ×2 (10:21→19:54)
--- NOTE | 2021-09-25 10:43 | XR ---
EXAMINATION TYPE: XR chest 1V DATE OF EXAM: 09/25/2021 COMPARISON: NONE HISTORY: 66 year-old female post intubation TECHNIQUE: Single frontal view of the chest is obtained. FINDINGS: ET tube tip satisfactory at the level of the medial clavicular heads. NG tube courses below the diaph ragm. There is volume loss in left hemithorax and slight leftward shift of the heart. Extensive left- sided opacities. Right lung relatively clear. IMPRESSION: Combination of airspace disease and volume loss throughout the left hemithorax.
[2021-09-25 11:13] LABS: ABG Base Excess -1.1 mmol/L; ABG HCO3 25 mmol/L (21-25); ABG PCO2 48 mmHg (35-45); ABG PH 7.32 (7.35-7.45); ABG PO2 240 mmHg (83-108); ABG TCO2 26 mmol/L (19-24); Allen Test Performed? Yes
[2021-09-25 11:14] LABS: Basophils % (A) 1 %; Eosinophils # (A) 0.2 k/uL (0-0.7); Eosinophils % (A) 4 %; HCT 37.4 % (34.0-46.0); HGB 12.4 gm/dL (11.4-16.0); Lymphocytes % (A) 18 %; MCH 28.9 pg (25.0-35.0); MCHC 33.2 g/dL (31.0-37.0); Mean Platelet Volume 10.2; Monocytes # (A) 0.4 k/uL (0-1.0); Monocytes % (A) 7 %; Neutrophils # (A) 3.7 k/uL (1.3-7.7); Neutrophils % (A) 70 %; RBC 4.29 m/uL (3.80-5.40); WBC 5.4 k/uL (3.8-10.6)
[2021-09-25 11:26] LABS: Calcium 8.8 mg/dL (8.4-10.2); Potassium 4.6 mmol/L (3.5-5.1); Total Protein 6.8 g/dL (6.3-8.2)
--- NOTE | 2021-09-25 11:30 | P.CONS ---
History of Present Illness - Reason for Consult Consult date: 09/25/21 Esophageal bleed Requesting physician: Shania Thao - Chief Complaint Esophageal bleed - History of Present Illness This is 66-year-old female with a history of liver cirrhosis and esophageal varices that was scheduled for an upper endoscopy on an elective outpatient basis for esophageal variceal ligation. Her last EGD with variceal ligation was performed in May of 2021 and at that time was noted to have large esophageal varices. During the procedure today the patient had a distal esophageal large varix with active bleeding, during the procedure she was intubated to protect her airway. Patient was stablized, bands were deployed and the bleeding was controlled. She was transferred to the ICU for admission with ICU and medicine following. Type and screen completed, CBC pending. IV Sandostatin and protonix ordered. Review of Systems ROS unobtainable: due to endotracheal tube Past Medical History Past Medical History: Diabetes Mellitus, GI Bleed, Hypertension Additional Past Medical History / Comment(s): GI BLEED 01/29/21- [facility] 6.5-RECEIVED 2 UNITS OF BLOOD., ESOPHAGEAL VARICIES., HX OF HEPATITIS A (17 YRS OLD), ANEMIA, HX OF IRON INFUSIONS., STATES RASH ON FACE. History of Any Multi-Drug Resistant Organisms: None Reported Past Surgical History: Back Surgery, Section Additional Past Surgical History / Comment(s): RT eye surgery FOR STY SCAR TISSUE, EGD'S , ESOPHAGEAL BANDING.,. COLONOSCOPY Past Anesthesia/Blood Transfusion Reactions: No Reported Reaction, Motion Sickness Past Psychological History: Anxiety Smoking Status: Former smoker Past Alcohol Use History: None Reported Additional Past Alcohol Use History / Comment(s): ,STARTED SMOKING AT AGE 17 ,QUIT AT AGE 46 ,SMOKED 1PPD Past Drug Use History: None Reported - Past Family History Mother Family Medical History: CVA/TIA Father Family Medical History: Cancer Additional Family Medical History / Comment(s): BRAIN AND RECTAL CANCER Medications and Allergies Home Medications Medication Instructions Recorded Confirmed Type ALPRAZolam [Xanax] 0.25 mg PO DAILY PRN 01/29/21 09/20/21 History Escitalopram [Lexapro] 10 mg PO DAILY 01/29/21 09/20/21 History Losartan Potassium [Cozaar] 100 mg PO DAILY 01/29/21 09/20/21 History Simvastatin [Zocor] 20 mg PO DAILY 01/29/21 09/20/21 History Zolpidem Tartrate [Ambien] 10 mg PO HS PRN 01/29/21 09/20/21 History glipiZIDE XL [Glucotrol XL] 5 mg PO DAILY 01/29/21 09/20/21 History metFORMIN HCL [Glucophage] 500 mg PO TID 01/29/21 09/20/21 History Ferrous Sulfate [Iron (65 MG 325 mg PO DAILY #30 tab 02/01/21 09/20/21 Rx Elemental)] Propranolol [Inderal] 10 mg PO TID #90 tab 02/01/21 09/20/21 Rx Allergies Allergy/AdvReac Type Severity Reaction Status Date / Time Sulfa (Sulfonamide Allergy Unknown Rash/Hives Verified 09/25/21 07:37 Antibiotics) sulfadiazine Allergy Rash/Hives Verified 09/25/21 07:37 Physical Exam Vitals: Vital Signs Temp Pulse Resp BP Pulse Ox FiO2 09/25/21 10:10 100 09/25/21 10:05 100 09/25/21 07:44 98.5 F 67 16 111/67 97 Intake and Output 09/24/21 09/25/21 09/25/21 22:59 06:59 14:59 Intake Total 900 Balance 900 Intake: IV 900 Other: Weight 83.2 kg General appearance: The patient is sedated and intubated HET: Head is normocephalic and atraumatic. Conjunctiva pink. Sclera anicteric. Neck: Supple without lymphadenopathy. Trachea midline. Heart: S1 S2. Regular rate and rhythm. Lungs: Equal expansion, airway entry. Abdomen: Soft, nontender, nondistended. Skin: No rashes. No jaundice. Extremities: Normal skin color and turgor. No pedal edema. Neurological: Sedated and intubated. Results Labs: Abnormal Lab Results - Last 24 Hours (Table) 09/25/21 Range/Units 07:52 POC Glucose (mg/dL) 115 H (70-110) mg/dL Assessment and Plan (1) Esophageal varices Narrative/Plan: This is 66-year-old female with a history of liver cirrhosis and esophageal varices was scheduled today for an upper endoscopy with an elective outpatient basis for esophageal variceal ligation. Her last EGD with variceal ligation was performed in May 2021 and at that time was noted to have large esophageal varices. During the procedure the patient had a distal esophageal large varix with active bleeding, during the procedure she was intubated to protect her airway. Patient was stablized, bands were deployed and the bleeding was controlled. She was transferred to the ICU for admission with ICU and medicine following. Current Visit: Yes Status: Acute Code(s): I85.00 - ESOPHAGEAL VARICES WITHOUT BLEEDING SNOMED Code(s): 96416673 (2) Cirrhosis of liver Current Visit: Yes Status: Acute Code(s): K74.60 - UNSPECIFIED CIRRHOSIS OF LIVER SNOMED Code(s): 03063443 Plan: 1. Continue symptomatic and supportive care 2. Sandostatin 50 mcg/hour 3. Protonix 40 mg twice a day 5. CBC every 6 hours 4 6. Continue with ICU and medical management We will continue to follow closely Dr. Doris Mcclellan I agree with the dictator's note, documented as a scribe by Dara Mcdermott.
[2021-09-25 11:33] LABS: Platelet Count 74 k/uL (150-450)
[2021-09-25 11:35] LABS: Poikilocytosis (M) Present
[2021-09-25 11:36] LABS: Ovalocytes Present
[2021-09-25 11:44] LABS: Glucose,Whole Blood 154 mg/dL (70-110)
--- NOTE | 2021-09-25 11:46 | P.CNPUL ---
History of Present Illness Consult date: 09/25/21 Chief complaint: GIB History of present illness: Patient is a 66-year-old, pleasant, white female with history of liver cirrhosis/esophageal varices is scheduled for an upper endoscopy on an elective basis for esophageal variceal ligation. Her last EGD with variceal ligation was performed in May 2021 and at that time was noted to have large esophageal varices. The patient underwent an EGD today by Dr. Parra. The patient was found to have a distal esophageal large varix with active bleeding as the band was being deploying status post variceal ligation and control of bleeding, and there was also Moderate to severe portal hypertensive gastropathy. Reviewed the operative note, and the patient was found to have large esophageal varices in the distal esophagus and at a time of banding, there was significant amount of bleeding noted. The banding itself did not seem to be successful as the patient continued to have bleeding. The scope was removed. It was decided to intubate the patient to protect her airway as there was obvious consented the patient could've aspirated. After the intubation process, the scope was placed again and the bleeding varices was identified and using suction, it was possible to deploy another band and the bleeding stopped immediately. The estimated blood loss according to the endoscopist was in the order of 200 mL. Based on that, the patient was intubated to protect her airways. Procedure was completed. NG tube was placed and the patient was brought into the intensive care unit for further care and management. At this point in time, the patient is sedated with propofol which is running at 50 mcg/kg per minute. The patient is hemodynamically stable with a most recent BP being at 160/72. Her current pulse ox is 99%. Her current heart rate is sinus at the rate of 66. She is on a Eventtus ventilator on assist control mode at the rate of 12 with tidal volume of 450 and FiO2 of 60% with a PEEP of 5. Chest x-ray post intubation showed volume loss and significant opacification of the left upper lobe and the left lower lobe along with some cardiomegaly. OG tube is in a good location. Findings are highly suspicious for aspiration knowing that there was a car of sign in the left lower lobe bronchus. The right lung is essentially clear. ET tube highs and trachea and needs to be pushed and by around 1 cm. The patient's blood work shows a white cell count of 5.4 with a hemoglobin of 12.4 and a platelet count is still pending for now. The renal function is stable with a creatinine of 0.9 and a BUN of 18 with a serum bicarb of 21 and a sodium level of 139. LFTs are normal. VIKAS was negative. Hepatitis profile was negative. Anti-smooth muscle antibodies were also negative. The patient had a blood gas that showed a pH of 7.32 with a pCO2 of 42 and pO2 of 240. This was done and FiO2 of 100%. The NG tube is also in place and the patient has thick bloody output amount to be determined by the nursing staff. Note that this patient was Hospital as in the past for GI bleed. She was in the hospital back in January 2021 for coffee-ground emesis. Investigation revealed that the patient had a cryptogenic liver cirrhosis and she was also found to have mid and distal esophageal varices for which she received previous esophageal variceal ligation. She received another ligation on March 2021 and she was also placed on and that I'll 10 mg by mouth 3 times a day. She was also maintained on oral iron supplements. She has diabetes mellitus, hypertension and hyperlipidemia as comorbid conditions. During her last EGD that was done on this patient on 06/17/2021 showed a 1 cm antral ulcer that was biopsied at the same time there was large mid to distal esophageal varices and she was asked to continue the same treatment. During her last procedure in May 2021, a total of 6 bands were deployed without any complications. Past Medical History Past Medical History: Diabetes Mellitus, GI Bleed, Hypertension Additional Past Medical History / Comment(s): GI BLEED 01/29/21- HBG 6.5-RECEIVED 2 UNITS OF BLOOD., ESOPHAGEAL VARICIES., HX OF HEPATITIS A (17 YRS OLD), ANEMIA, HX OF IRON INFUSIONS., STATES RASH ON FACE. History of Any Multi-Drug Resistant Organisms: None Reported Past Surgical History: Back Surgery, Section Additional Past Surgical History / Comment(s): RT eye surgery FOR STY SCAR TISSUE, EGD'S , ESOPHAGEAL BANDING.,. COLONOSCOPY Past Anesthesia/Blood Transfusion Reactions: No Reported Reaction, Motion Sickness Past Psychological History: Anxiety Smoking Status: Former smoker Past Alcohol Use History: None Reported Additional Past Alcohol Use History / Comment(s): ,STARTED SMOKING AT AGE 17 ,QUIT AT AGE 46 ,SMOKED 1PPD Past Drug Use History: None Reported - Past Family History Mother Family Medical History: CVA/TIA Father Family Medical History: Cancer Additional Family Medical History / Comment(s): BRAIN AND RECTAL CANCER Medications and Allergies Home Medications Medication Instructions Recorded Confirmed Type ALPRAZolam [Xanax] 0.25 mg PO DAILY PRN 01/29/21 09/20/21 History Escitalopram [Lexapro] 10 mg PO DAILY 01/29/21 09/20/21 History Losartan Potassium [Cozaar] 100 mg PO DAILY 01/29/21 09/20/21 History Simvastatin [Zocor] 20 mg PO DAILY 01/29/21 09/20/21 History Zolpidem Tartrate [Ambien] 10 mg PO HS PRN 01/29/21 09/20/21 History glipiZIDE XL [Glucotrol XL] 5 mg PO DAILY 01/29/21 09/20/21 History metFORMIN HCL [Glucophage] 500 mg PO TID 01/29/21 09/20/21 History Ferrous Sulfate [Iron (65 MG 325 mg PO DAILY #30 tab 02/01/21 09/20/21 Rx Elemental)] Propranolol [Inderal] 10 mg PO TID #90 tab 02/01/21 09/20/21 Rx Allergies Allergy/AdvReac Type Severity Reaction Status Date / Time Sulfa (Sulfonamide Allergy Unknown Rash/Hives Verified 09/25/21 07:37 Antibiotics) sulfadiazine Allergy Rash/Hives Verified 09/25/21 07:37 Physical Exam Vitals: Vital Signs Temp Pulse Pulse Resp BP BP Pulse Ox 09/25/21 10:50 65 13 175/82 100 09/25/21 10:40 66 13 176/77 100 09/25/21 10:30 69 12 165/77 100 09/25/21 10:20 65 15 100 09/25/21 10:10 66 12 165/77 100 09/25/21 10:05 09/25/21 10:00 74 12 100 09/25/21 09:50 70 10 L 99 09/25/21 09:40 82 13 145/78 99 09/25/21 09:36 69 24 09/25/21 07:44 98.5 F 67 16 111/67 97 FiO2 09/25/21 10:50 09/25/21 10:40 09/25/21 10:30 09/25/21 10:20 09/25/21 10:10 100 09/25/21 10:05 100 09/25/21 10:00 09/25/21 09:50 09/25/21 09:40 09/25/21 09:36 09/25/21 07:44 Intake and Output 09/24/21 09/25/21 09/25/21 22:59 06:59 14:59 Intake Total 900 Balance 900 Intake: IV 900 Other: Weight 83.2 kg Gen. appearance the patient is calm and comfortable sedated for now orogastric and orotracheal tube are both in place. The patient bloody output from the NG tube and output is minimal at this point in time and amount of blood collecting in the canister is in the order of 50-100 mL. No active bleeding for now. The patient is quite success with the mechanical ventilator. Head exam was generally normal. There was no scleral icterus or corneal arcus. Mucous membranes were moist. Neck was supple and without jugular venous distension, thyromegaly, or carotid bruits. Carotids were easily palpable bilaterally. There was no adenopathy. Lungs were clear to auscultation and percussion on the right and there is diminished breath on the left, and with normal diaphragmatic excursion. No wheezes or rales were noted. Cardiac exam revealed the PMI to be normally situated and sized. The rhythm was regular and no extrasystoles were noted during several minutes of auscultation. The first and second heart sounds were normal and physiologic splitting of the second heart sound was noted. There were no murmurs, rubs, clicks, or gallops. Abdominal exam revealed normal bowel sounds. The abdomen was soft, non-tender, and without masses, organomegaly, or appreciable enlargement of the abdominal aorta. There is some mild abdominal distention possibly related to some fluid wave and ascites. Examination of the extremities revealed easily palpable radial, femoral and pedal pulses. There was no cyanosis, clubbing or edema. Examination of the skin revealed no evidence of significant rashes, suspicious a ppearing nevi or other concerning lesions. Neurologic the sedated. Results - Laboratory Findings CBC and BMP: 09/25/21 10:43 ABG ABG pH 7.32 (7.35-7.45) L 09/25/21 11:11 ABG pCO2 48 mmHg (35-45) H 09/25/21 11:11 ABG pO2 240 mmHg (83-108) H 09/25/21 11:11 ABG O2 Saturation 100.0 % (94-97) H 09/25/21 11:11 Abnormal lab findings: Abnormal Labs 09/25/21 09/25/21 07:52 11:11 ABG pH 7.32 L ABG pCO2 48 H ABG pO2 240 H ABG Total CO2 26 H ABG O2 Saturation 100.0 H POC Glucose (mg/dL) 115 H - Diagnostic Findings Chest x-ray: image reviewed Assessment and Plan Plan: Massive upper GI bleed secondary to bleeding esophageal varices post EGD that was initially an elective procedure and later on the patient had to be intubated and placed on a mechanical ventilator because of massive bleeding that occurred from a esophageal variceal banding. The patient was intubated and her airway was secured and following that another band was applied to the distal esophageal varices with control of the bleeding. Currently the patient is an NG tube in place. Hemoglobin was 12.4. Cryptogenic liver cirrhosis Portal hypertension secondary liver cirrhosis with multiple distal esophageal varices with previous banding on multiple occasions and the most banding procedure was done today and this was an elective procedure. Patient also has portal gastropathy and a 1 cm gastric ulcer that was identified on a previous EGD. Previous history of blood loss anemia, current hemoglobin is at 12.4. This can be potentially a hemoconcentrated sample. Left lung pneumonia/aspiration Acute hypoxic respiratory failure secondary to aspiration of blood secondary to upper GI bleed and the patient is currently intubated on a mechanical v entilator. Hypertension Hyperlipidemia Diabetes mellitus Splenomegaly secondary liver cirrhosis Ascites secondary to liver cirrhosis Chronic thrombocytopenia secondary to liver cirrhosis Plan Continue vent support and wean down the FiO2 to maintain a saturation above 90%, currently on 60% FiO2 Cover the patient with IV Zosyn Utilize DuoNeb nebulized treatment 4 times a day [id number] Keep NG tube in place and monitor the upper GI bleeding and monitor the hemoglobin every 4 hours with a. CBCs Check coagulation profile IV Protonix IV octreotide Hydralazine 10 mg IV every 6-8 hours for systolic blood pressure above 160 Hold oral hypoglycemics and put the patient is in a sinus tachycardia coverage Propofol for sedation Dilaudid for pain control No plans for weaning extubation today as active GI bleed is still an ongoing concern and the patient needs to be monitored very closely for ongoing GI bleed. Based on the surgical report, the patient had successful banding and control of the bleeding from the esophageal varices. Compression devices to lower extremity is 40 prophylaxis Establish a triple lumen catheter Condition is critical and will continue to follow. Time with Patient: Greater than 30
[2021-09-25 11:48] LABS: INR 1.1 (<1.2); Prothrombin Time 11.6 sec (9.0-12.0)
[2021-09-25] MEDS ORDERED: CISATRACURIUM 2 MG/ML 5 ML VIAL IV ONE (11:48)
[2021-09-25 11:53] LABS: Amorphous Sediment,Urine Occasional /hpf; Appearance,Urine Turbid (Clear); Bacteria,Urine Rare /hpf; Bilirubin,Urine Negative (Negative); Blood,Urine Negative (Negative); Color,Urine Yellow; Glucose,Urine (UA) Negative (Negative); Ketones,Urine Negative (Negative); Leukocyte Esterase,Urine Negative (Negative); Mucus,Urine Rare /hpf; Nitrite,Urine Negative (Negative); PH, Urine 5.5 (5.0-8.0); Protein,Urine Trace (Negative); Squamous Epithelial Cell,Urine 1 /hpf (0-4); WBC,Urine 1 /hpf (0-5)
--- NOTE | 2021-09-25 12:04 | P.PCN ---
Date of Procedure: 09/25/21 Preoperative Diagnosis: Acute aspiration, upper GI bleed Postoperative Diagnosis: Acute aspiration, upper GI bleed Procedure(s) Performed: Insertion of a triple-lumen catheter Anesthesia: local Operative Findings: Anesthesia: MAC, local Surgeon: Kumar Solano Estimated Blood Loss (ml): 0 Pathology: none sent Condition: critical Disposition: ICU Operative Findings: Indication: Hemodynamic monitoring/Intravenous access. A time-out was completed verifying correct patient, procedure, site, positioning, and implant(s) or special equipment if applicable. The patient was placed in a dependent position appropriate for central line placement based on the vein to be cannulated. The patients left neck was prepped and draped in sterile fashion. 1% Lidocaine was used to anesthetize the surrounding skin area. A triple lumen 9F Cordis catheter was introduced into the internal jugular vein using Seldinger technique. The catheter was threaded smoothly over the guide wire and appropriate blood return was obtained. Each lumen of the catheter was evacuated of air and flushed with sterile saline. The catheter was then sutured in place to the skin and a sterile dressing applied. Perfusion to the extremity distal to the point of catheter insertion was checked and found to be adequate. The patient tolerated the procedure well and there were no complications.
[2021-09-25] MEDS ORDERED: Magnesium Replacement Protocol 1 EACH MISC MISCELLANE PRN (12:21)
[2021-09-25] MEDS ORDERED: hydrALAZINE HCL 20 MG/ML 1 ML VIAL IVP PRN (12:22)
--- NOTE | 2021-09-25 12:24 | XR ---
EXAMINATION TYPE: XR chest 1V portable DATE OF EXAM: 09/25/2021 Comparison: Earlier today Clinical History: 66-year-old female central line placement Findings: New left subclavian CVC tip at the cavoatrial junction. Patient is rotated now towards the left. Inte rstitial density remains throughout the left lung as well as prominent retrocardiac and left basilar opacity. Aeration in the upper and mid left lung has improved. ET tube tip at the medial clavicular h pauline. NG tube courses below the diaphragm. Impression: 1. Left subclavian CVC tip at the cavoatrial junction. 2. Current exam is rotated making the mediastinum asymmetric. There does appear to be improving aerat ion throughout the left hemithorax but with patchy infiltrates remaining especially in the lower lung .
[2021-09-25] MEDS: INSULIN ASPART (NovoLOG) 100 UNIT/ML VIAL SQ SCH ×3 (12:28→23:42)
[2021-09-25] MEDS: SODIUM CHLORIDE 0.9% 1,000 ML IV SCH (12:29)
[2021-09-25] MEDS: MAGNESIUM SULFATE-D5W PMX 1 GM in DEXTROSE/WATER 1 100ML.BAG IVPB SCH ×2 (13:29→15:00)
[2021-09-25] MEDS ORDERED: ALPRAZolam 0.25 MG TAB PO PRN (15:41)
[2021-09-25] MEDS ORDERED: ZOLPIDEM 5 MG TAB PO PRN (15:41)
--- NOTE | 2021-09-25 15:45 | P.HPIM ---
History of Present Illness H&P Date: 09/25/21 Chief Complaint: GI bleed 66-year-old woman with history of nonalcoholic fatty liver disease, complicated by liver cirrhosis and esophageal varices presented for elective esophageal variceal banding; patient had a complicated procedure where she had an acute variceal bleed in the endoscopy suite, prompting intubation for airway protection. At this point, repeat scope and banding was attempted at which point, patient did have octreotide started and had successful ligation of bleeding varices. Subsequently, patient was transferred to the intensive care unit for further management. Upon my evaluation, patient is tolerating breathing tube with small amount of propofol running. Before meals 450, FiO2 100%, PEEP 5, saturating 100% with the settings. CBC is remarkable for thrombocytopenia down to 74. Chemistries are remarkable for mild acidosis down to a CO2 of 21, BUN of 18, creatinine is within normal limits. Liver function tests are unremarkable. Coags are unremarkable. ABG shows pH is 7.32, pCO2 of 48, pO2 of 240. UA shows turbid urine, trace protein, occasional amorphous sediment, rare bacteria. Review of systems cannot be completed due to patient's medical condition Gen: in no apparent distress, resting comfortably in bed, ventilated, sedated Eyes: PERRL, no scleral injection or icterus HENT: normocephalic, atraumatic, moist mucous membranes Neck: no tracheal deviation, full range of motion Resp: breathing comfortably with no accessory muscle use while on the ventilator, no tactile fremitus, clear to auscultation bilaterally CVS: good distal perfusion x 4, no pitting edema, regular rate and rhythm GI: soft, no tenderness to palpation, periumbilical area, ND, no hepatosplenomegaly : no suprapubic tenderness, no CVAT, viera catheter is present MSK: no clubbing, no cyanosis, no noted contractures of extremities Skin: no noted rashes, petechiae; temperature of skin is appropriate Labs and imaging as above Assessment/plan: Acute blood loss anemia Variceal bleeding -Admit to ICU, telemetry -Pulmonary consult -GI consult -Somatostatin drip -CBC every 6 hours, transfuse for greater than 2 point hemoglobin drop her hemoglobin less than 7 -Continue propofol -Ventilator management per ICU -Continue Zosyn -Continue IV fluids -Hold home losartan Nonalcoholic fatty liver disease with cirrhosis Portal hypertensive gastropathy Hypertension Hyperlipidemia Diabetes type 2 -Home medications reviewed and reconciled Patient is full code DVT prophylaxis on hold due to massive bleeding Past Medical History Past Medical History: Diabetes Mellitus, GI Bleed, Hypertension Additional Past Medical History / Comment(s): GI BLEED 01/29/21- HBG 6.5-RECEIVED 2 UNITS OF BLOOD., ESOPHAGEAL VARICIES., HX OF HEPATITIS A (17 YRS OLD), ANEMIA, HX OF IRON INFUSIONS., STATES RASH ON FACE. History of Any Multi-Drug Resistant Organisms: None Reported Past Surgical History: Back Surgery, Section Additional Past Surgical History / Comment(s): RT eye surgery FOR STY SCAR TISSUE, EGD'S , ESOPHAGEAL BANDING.,. COLONOSCOPY Past Anesthesia/Blood Transfusion Reactions: No Reported Reaction, Motion Sickness Past Psychological History: Anxiety Smoking Status: Former smoker Past Alcohol Use History: None Reported Additional Past Alcohol Use History / Comment(s): ,STARTED SMOKING AT AGE 17 ,QUIT AT AGE 46 ,SMOKED 1PPD Past Drug Use History: None Reported - Past Family History Mother Family Medical History: CVA/TIA Father Family Medical History: Cancer Additional Family Medical History / Comment(s): BRAIN AND RECTAL CANCER Medications and Allergies Home Medications Medication Instructions Recorded Confirmed Type ALPRAZolam [Xanax] 0.25 mg PO DAILY PRN 01/29/21 09/20/21 History Escitalopram [Lexapro] 10 mg PO DAILY 01/29/21 09/20/21 History Losartan Potassium [Cozaar] 100 mg PO DAILY 01/29/21 09/20/21 History Simvastatin [Zocor] 20 mg PO DAILY 01/29/21 09/20/21 History Zolpidem Tartrate [Ambien] 10 mg PO HS PRN 01/29/21 09/20/21 History glipiZIDE XL [Glucotrol XL] 5 mg PO DAILY 01/29/21 09/20/21 History metFORMIN HCL [Glucophage] 500 mg PO TID 01/29/21 09/20/21 History Ferrous Sulfate [Iron (65 MG 325 mg PO DAILY #30 tab 02/01/21 09/20/21 Rx Elemental)] Propranolol [Inderal] 10 mg PO TID #90 tab 02/01/21 09/20/21 Rx Allergies Allergy/AdvReac Type Severity Reaction Status Date / Time Sulfa (Sulfonamide Allergy Unknown Rash/Hives Verified 09/25/21 07:37 Antibiotics) sulfadiazine Allergy Rash/Hives Verified 09/25/21 07:37 Physical Exam Osteopathic Statement: *. No significant issues noted on an osteopathic structural exam other than those noted in the History and Physical/Consult. Vitals: Vital Signs Temp Pulse Pulse Resp BP BP Pulse Ox 09/25/21 15:00 67 12 100 09/25/21 14:50 68 13 161/66 100 09/25/21 14:40 68 12 100 09/25/21 14:30 66 12 100 09/25/21 14:20 68 12 172/73 100 09/25/21 14:10 68 12 156/64 100 09/25/21 14:00 67 12 148/65 100 09/25/21 13:50 67 13 148/65 100 09/25/21 13:40 67 13 148/65 09/25/21 13:30 66 12 181/77 09/25/21 13:20 64 11 L 181/77 100 09/25/21 13:10 64 12 160/71 100 09/25/21 13:00 64 12 152/65 100 09/25/21 12:50 63 12 152/65 100 09/25/21 12:40 63 12 146/61 100 09/25/21 12:30 64 12 160/61 100 09/25/21 12:20 63 12 160/61 100 09/25/21 12:10 65 14 157/99 100 09/25/21 12:00 97.6 F 66 12 154/68 94 L 09/25/21 11:50 64 21 154/68 100 09/25/21 11:40 64 13 157/71 100 09/25/21 11:30 64 12 160/72 100 09/25/21 11:20 64 13 160/72 100 09/25/21 11:15 09/25/21 11:10 64 12 169/78 99 09/25/21 11:00 65 12 175/82 98 09/25/21 10:50 65 13 175/82 100 09/25/21 10:40 66 13 176/77 100 09/25/21 10:30 69 12 165/77 100 09/25/21 10:20 65 15 100 09/25/21 10:10 66 12 165/77 100 09/25/21 10:05 06/28/22 10:00 74 12 100 09/25/21 09:50 70 10 L 99 09/25/21 09:40 82 13 145/78 99 09/25/21 09:36 69 24 09/25/21 07:44 98.5 F 67 16 111/67 97 FiO2 09/25/21 15:00 09/25/21 14:50 09/25/21 14:40 09/25/21 14:30 09/25/21 14:20 09/25/21 14:10 09/25/21 14:00 09/25/21 13:50 09/25/21 13:40 09/25/21 13:30 09/25/21 13:20 09/25/21 13:10 09/25/21 13:00 50 09/25/21 12:50 09/25/21 12:40 09/25/21 12:30 09/25/21 12:20 09/25/21 12:10 09/25/21 12:00 50 09/25/21 11:50 09/25/21 11:40 09/25/21 11:30 09/25/21 11:20 09/25/21 11:15 60 09/25/21 11:10 09/25/21 11:00 09/25/21 10:50 09/25/21 10:40 09/25/21 10:30 09/25/21 10:20 09/25/21 10:10 100 09/25/21 10:05 100 09/25/21 10:00 09/25/21 09:50 09/25/21 09:40 09/25/21 09:36 09/25/21 07:44 Intake and Output 09/25/21 09/25/21 09/25/21 06:59 14:59 22:59 Intake Total 1500 150 Output Total 79 7 Balance 1421 143 Intake: IV 900 Intake, IV Titration 600 150 Amount Magnesium Sulfate-D5w Pmx 100 100 1 gm In Dextrose/Water 1 100ml.bag @ 100 mls/hr IVPB Q1H [facility] Rx#: [id number] Octreotide 500 mcg In 250 Sodium Chloride 0.9% 250 ml @ 50 MCG/HR 25 mls/hr IV .Q10H [facility] Rx#: [id number] Sodium Chloride 0.9% 1, 250 50 000 ml @ 50 mls/hr IV . Q20H [facility] Rx#:[id number] Output: Urine 79 7 Other: Voiding Method Indwelling Catheter Weight 83.2 kg Results CBC & Chem 7: 09/25/21 10:43 09/25/21 10:43 Labs: Abnormal Lab Results - Last 24 Hours (Table) 09/25/21 09/25/21 09/25/21 Range/Units 07:52 10:43 10:43 Plt Count 74 L (150-450) k/uL ABG pH (7.35-7.45) ABG pCO2 (35-45) mmHg ABG pO2 (83-108) mmHg ABG Total CO2 (19-24) mmol/L ABG O2 Saturation (94-97) % Chloride 108 H (98-107) mmol/L Carbon Dioxide 21 L (22-30) mmol/L BUN 18 H (7-17) mg/dL Glucose 149 H (74-99) mg/dL POC Glucose (mg/dL) 115 H (70-110) mg/dL Urine Appearance (Clear) Urine Protein (Negative) Amorphous Sediment (None) /hpf Urine Bacteria (None) /hpf Urine Mucus (None) /hpf 09/25/21 09/25/21 09/25/21 Range/Units 11:00 11:11 11:42 Plt Count (150-450) k/uL ABG pH 7.32 L (7.35-7.45) ABG pCO2 48 H (35-45) mmHg ABG pO2 240 H (83-108) mmHg ABG Total CO2 26 H (19-24) mmol/L ABG O2 Saturation 100.0 H (94-97) % Chloride (98-107) mmol/L Carbon Dioxide (22-30) mmol/L BUN (7-17) mg/dL Glucose (74-99) mg/dL POC Glucose (mg/dL) 154 H (70-110) mg/dL Urine Appearance Turbid H (Clear) Urine Protein Trace H (Negative) Amorphous Sediment Occasional H (None) /hpf Urine Bacteria Rare H (None) /hpf Urine Mucus Rare H (None) /hpf
[2021-09-25] MEDS: IPRATROPIUM-ALBUTEROL 3 ML NEB INHALATION SCH ×2 (15:50→19:35)
[2021-09-25] MEDS: PIPERACILLIN-TAZOBACTAM 3.375 GM in SODIUM CHLORIDE 0.9% 100 ML IVPB SCH ×2 (16:27→23:42)
[2021-09-25] MEDS: PROPRANOLOL 10 MG TAB PO SCH ×2 (16:32→21:01)
[2021-09-25 16:57] LABS: HCT 38.5 % (34.0-46.0); HGB 12.4 gm/dL (11.4-16.0); Hypochromasia Slight; MCH 28.6 pg (25.0-35.0); MCHC 32.2 g/dL (31.0-37.0); MCV 88.7 fL (80.0-100.0); Mean Platelet Volume 10.5; RBC 4.34 m/uL (3.80-5.40); RDW 15.1 % (11.5-15.5); WBC 12.1 k/uL (3.8-10.6)
[2021-09-25 17:24] LABS: Platelet Count 68 k/uL (150-450)
[2021-09-25] MEDS ORDERED: INSULIN ASPART (NovoLOG) 100 UNIT/ML VIAL SQ SCH (17:30)
[2021-09-25 18:03] LABS: Glucose,Whole Blood 175 mg/dL (70-110)
[2021-09-25] MEDS: HYDROmorphone 1 MG/ML 1 ML SYRINGE IVP PRN (18:09)
[2021-09-25] MEDS: PANTOPRAZOLE 40 MG/10 ML VIAL IV SCH (20:52)
[2021-09-25] MEDS: CHLORHEXIDINE GLUCONATE 15 ML CUP MUCOUS MEM SCH (20:53)
[2021-09-25 23:40] LABS: Glucose,Whole Blood 135 mg/dL (70-110)
[2021-09-26] MEDS: HYDROmorphone 1 MG/ML 1 ML SYRINGE IVP PRN ×2 (00:49→05:04)
[2021-09-26 01:17] LABS: HGB 12.4 gm/dL (11.4-16.0); MCH 29.1 pg (25.0-35.0); MCHC 34.3 g/dL (31.0-37.0); Mean Platelet Volume 12.2; RBC 4.24 m/uL (3.80-5.40); RDW 15.4 % (11.5-15.5); WBC 11.4 k/uL (3.8-10.6)
[2021-09-26 01:26] LABS: Platelet Count 69 k/uL (150-450)
[2021-09-26] MEDS: LACTATED RINGERS 1,000 ML IV SCH (05:19)
[2021-09-26 06:02] LABS: ABG HCO3 26 mmol/L (21-25); ABG PCO2 48 mmHg (35-45); ABG PH 7.34 (7.35-7.45); ABG PO2 125 mmHg (83-108); ABG TCO2 27 mmol/L (19-24); Allen Test Performed? Yes
[2021-09-26] MEDS: OCTREOTIDE 500 MCG in SODIUM CHLORIDE 0.9% 250 ML IV SCH ×2 (06:25→16:00)
[2021-09-26 06:29] LABS: Glucose,Whole Blood 148 mg/dL (70-110)
[2021-09-26] MEDS: INSULIN ASPART (NovoLOG) 100 UNIT/ML VIAL SQ SCH ×4 (06:30→23:29)
[2021-09-26] MEDS: IPRATROPIUM-ALBUTEROL 3 ML NEB INHALATION SCH ×4 (07:15→19:26)
[2021-09-26 08:18] LABS: Basophils # (A) 0.1 k/uL (0-0.2); Basophils % (A) 1 %; Eosinophils # (A) 0.3 k/uL (0-0.7); Eosinophils % (A) 3 %; HCT 35.3 % (34.0-46.0); HGB 11.7 gm/dL (11.4-16.0); Lymphocytes # (A) 1.2 k/uL (1.0-4.8); Lymphocytes % (A) 12 %; MCH 28.6 pg (25.0-35.0); MCHC 33.2 g/dL (31.0-37.0); MCV 86.1 fL (80.0-100.0); Mean Platelet Volume 10.5; Monocytes # (A) 0.6 k/uL (0-1.0); Monocytes % (A) 7 %; Neutrophils # (A) 7.3 k/uL (1.3-7.7); Neutrophils % (A) 77 %; RDW 15.6 % (11.5-15.5); WBC 9.5 k/uL (3.8-10.6)
[2021-09-26 08:21] LABS: Platelet Count 76 k/uL (150-450)
[2021-09-26] MEDS: SODIUM CHLORIDE 0.9% 1,000 ML IV SCH (08:30)
[2021-09-26 08:34] LABS: Calcium 8.2 mg/dL (8.4-10.2); Magnesium 2.1 mg/dL (1.6-2.3); Potassium 4.3 mmol/L (3.5-5.1)
[2021-09-26] MEDS: PIPERACILLIN-TAZOBACTAM 3.375 GM in SODIUM CHLORIDE 0.9% 100 ML IVPB SCH ×3 (08:39→23:30)
[2021-09-26] MEDS: FERROUS SULFATE 325 MG TAB PO SCH (08:40)
[2021-09-26] MEDS: CHLORHEXIDINE GLUCONATE 15 ML CUP MUCOUS MEM SCH (08:40)
[2021-09-26] MEDS: ATORVASTATIN 10 MG TAB PO SCH (08:40)
[2021-09-26] MEDS: PANTOPRAZOLE 40 MG/10 ML VIAL IV SCH ×2 (08:40→21:00)
[2021-09-26] MEDS: PROPRANOLOL 10 MG TAB PO SCH ×3 (08:41→21:00)
[2021-09-26] MEDS: ESCITALOPRAM 10 MG TAB PO SCH (08:41)
--- NOTE | 2021-09-26 08:51 | XR ---
EXAMINATION TYPE: XR chest 1V portable DATE OF EXAM: 09/26/2021 COMPARISON: 09/17/2021 INDICATION: Tube placement TECHNIQUE: Single frontal view of the chest is obtained. FINDINGS: The heart size is normal. The pulmonary vasculature is normal. There is silhouetting the left diaphragm. Correlate for atelectasis or small effusion. Endotracheal tube tip is 4 cm above the tristen. Nasogastric tube transverses the thorax tip in the ab domen. Left central venous catheter tip is in the distal superior vena cava region. No pneumothorax i s evident. IMPRESSION: 1. Atelectasis or small left pleural effusion. 2. Lines and catheters discussed above.
--- NOTE | 2021-09-26 08:54 | P.PN ---
Subjective Progress Note Date: 09/26/21 Principal diagnosis: Esophageal varices, upper GI bleed This is 66-year-old white female who came in for elective esophageal variceal ligation yesterday with Dr. Mcclellan. During the procedure she had some bleeding from that was eventually controlled with the band. However she was intubated during the procedure and brought to the ICU. She remains sedated and intubated in the ICU. She has had no acute changes through the night. She had a total of 150 maroon colored output from her NG tube yesterday during the day and 75 through the night. Now NG tube drainage is more bile. No further evidence of GI bleed. Her hemoglobin has been stable and last documented hemoglobin 12.4. Patient remains on Sandostatin 50 g per hour. Objective - Vital Signs Vital signs: Vital Signs Temp 98.1 F 09/26/21 04:00 Pulse 64 09/26/21 07:26 Resp 12 09/26/21 07:00 BP 115/52 09/26/21 07:00 Pulse Ox 99 09/26/21 07:00 FiO2 40 09/26/21 07:09 Intake & Output 09/25/21 09/26/21 09/26/21 18:59 06:59 18:59 Intake Total 0577.391 9784.534 50 Output Total 256 590 120 Balance 1743.424 729.534 -70 Weight 83.2 kg 86 kg Intake: IV 900 550 50 Sodium Chloride 0.9% 1, 550 50 000 ml @ 50 mls/hr IV . Q20H [facility] Rx#:[id number] Intake, IV Titration 1099.424 769.534 Amount Magnesium Sulfate-D5w Pmx 200 1 gm In Dextrose/Water 1 100ml.bag @ 100 mls/hr IVPB Q1H [facility] Rx#: [id number] Octreotide 500 mcg In 250 488.75 Sodium Chloride 0.9% 250 ml @ 50 MCG/HR 25 mls/hr IV .Q10H [facility] Rx#: [id number] Piperacillin-Tazobactam 3 100 .375 gm In Sodium Chloride 0.9% 100 ml @ 25 mls/hr IVPB Q8HR [facility] Rx# :[id number] Sodium Chloride 0.9% 1, 450 50 000 ml @ 50 mls/hr IV . Q20H [facility] Rx#:[id number] propofoL 1,000 mg In 99.424 230.784 Empty Bag 1 bag @ 5 MCG/ KG/MIN 2.496 mls/hr IV . Q24H [facility] Rx#:[id number] Output: Gastric Drainage 75 Urine 256 590 45 Other: Voiding Method Indwelling Catheter Indwelling Catheter - Exam General appearance: The patient is sedated and intubated, with NG tube in place. HET: Head is normocephalic and atraumatic. NG tube in place.. Neck: Supple without lymphadenopathy. Abdomen: Soft, nontender, nondistended with bowel sounds. No guarding or rigidity. Extremities: Normal skin color and turgor. No pedal edema Skin: No rashes, no jaundice Neurological: Sedated and intubated. - Labs CBC & Chem 7: 09/26/21 08:05 09/26/21 08:05 Labs: Abnormal Lab Results - Last 24 Hours (Table) 09/25/21 09/25/21 09/25/21 Range/Units 10:43 10:43 11:00 WBC (3.8-10.6) k/uL Plt Count 74 L (150-450) k/uL ABG pH (7.35-7.45) ABG pCO2 (35-45) mmHg ABG pO2 (83-108) mmHg ABG HCO3 (21-25) mmol/L ABG Total CO2 (19-24) mmol/L ABG O2 Saturation (94-97) % Chloride 108 H (98-107) mmol/L Carbon Dioxide 21 L (22-30) mmol/L BUN 18 H (7-17) mg/dL Glucose 149 H (74-99) mg/dL POC Glucose (mg/dL) (70-110) mg/dL Urine Appearance Turbid H (Clear) Urine Protein Trace H (Negative) Amorphous Sediment Occasional H (None) /hpf Urine Bacteria Rare H (None) /hpf Urine Mucus Rare H (None) /hpf 09/25/21 09/25/21 09/25/21 Range/Units 11:11 11:42 16:42 WBC 12.1 H (3.8-10.6) k/uL Plt Count 68 L (150-450) k/uL ABG pH 7.32 L (7.35-7.45) ABG pCO2 48 H (35-45) mmHg ABG pO2 240 H (83-108) mmHg ABG HCO3 (21-25) mmol/L ABG Total CO2 26 H (19-24) mmol/L ABG O2 Saturation 100.0 H (94-97) % Chloride (98-107) mmol/L Carbon Dioxide (22-30) mmol/L BUN (7-17) mg/dL Glucose (74-99) mg/dL POC Glucose (mg/dL) 154 H (70-110) mg/dL Urine Appearance (Clear) Urine Protein (Negative) Amorphous Sediment (None) /hpf Urine Bacteria (None) /hpf Urine Mucus (None) /hpf 09/25/21 09/25/21 09/26/21 Range/Units 18:02 23:38 00:10 WBC 11.4 H (3.8-10.6) k/uL Plt Count 69 L (150-450) k/uL ABG pH (7.35-7.45) ABG pCO2 (35-45) mmHg ABG pO2 (83-108) mmHg ABG HCO3 (21-25) mmol/L ABG Total CO2 (19-24) mmol/L ABG O2 Saturation (94-97) % Chloride (98-107) mmol/L Carbon Dioxide (22-30) mmol/L BUN (7-17) mg/dL Glucose (74-99) mg/dL POC Glucose (mg/dL) 175 H 135 H (70-110) mg/dL Urine Appearance (Clear) Urine Protein (Negative) Amorphous Sediment (None) /hpf Urine Bacteria (None) /hpf Urine Mucus (None) /hpf 09/26/21 09/26/21 Range/Units 05:52 06:28 WBC (3.8-10.6) k/uL Plt Count (150-450) k/uL ABG pH 7.34 L (7.35-7.45) ABG pCO2 48 H (35-45) mmHg ABG pO2 125 H (83-108) mmHg ABG HCO3 26 H (21-25) mmol/L ABG Total CO2 27 H (19-24) mmol/L ABG O2 Saturation 99.0 H (94-97) % Chloride (98-107) mmol/L Carbon Dioxide (22-30) mmol/L BUN (7-17) mg/dL Glucose (74-99) mg/dL POC Glucose (mg/dL) 148 H (70-110) mg/dL Urine Appearance (Clear) Urine Protein (Negative) Amorphous Sediment (None) /hpf Urine Bacteria (None) /hpf Urine Mucus (None) /hpf Assessment and Plan (1) Esophageal varices Narrative/Plan: This is 66-year-old female with a history of liver cirrhosis and esophageal varices was scheduled today for an upper endoscopy with an elective outpatient basis for esophageal variceal ligation. Her last EGD with variceal ligation was performed in May 2021 and at that time was noted to have large esophageal varices. During the procedure the patient had a distal esophageal large varix with active bleeding, during the procedure she was intubated to protect her airway. Patient was stablized, bands were deployed and the bleeding was controlled. She was transferred to the ICU for admission with ICU and medicine following. Patient remains stable, plan is for extubation today. At that time NG tube can be removed as well. We'll continue octreotide while patient in the ICU. Current Visit: Yes Status: Acute Code(s): I85.00 - ESOPHAGEAL VARICES WITHOUT BLEEDING SNOMED Code(s): 04893984 (2) Cirrhosis of liver Current Visit: Yes Status: Acute Code(s): K74.60 - UNSPECIFIED CIRRHOSIS OF LIVER SNOMED Code(s): 82044628 Plan: 1. Continue symptomatic and supportive care 2. Continue Sandostatin 50 mcg/hour while in the ICU 3. Protonix 40 mg twice a day 5. CBC daily 6. Continue with ICU and medical management 7. May discontinue NG tube with extubation 8. Start clear liquid diet after extubation 9. Continue Inderal 10 mg 3 times a day Thank you for this consultation, we will continue to follow closely. Dr. Doris Mcclellan I agree with the dictator's note, documented as a scribe by Dara Mcdermott.
--- NOTE | 2021-09-26 09:17 | P.PN ---
Subjective Progress Note Date: 09/26/21 Patient is a 66-year-old, pleasant, white female with history of liver cirrhosis/esophageal varices is scheduled for an upper endoscopy on an elective basis for esophageal variceal ligation. Her last EGD with variceal ligation was performed in May 2021 and at that time was noted to have large esophageal varices. The patient underwent an EGD today by Dr. Parra. The patient was found to have a distal esophageal large varix with active bleeding as the band was being deploying status post variceal ligation and control of bleeding, and there was also Moderate to severe portal hypertensive gastropathy. Reviewed the operative note, and the patient was found to have large esophageal varices in the distal esophagus and at a time of banding, there was significant amount of bleeding noted. The banding itself did not seem to be successful as the patient continued to have bleeding. The scope was removed. It was decided to intubate the patient to protect her airway as there was obvious consented the patient could've aspirated. After the intubation process, the scope was placed again and the bleeding varices was identified and using suction, it was possible to deploy another band and the bleeding stopped immediately. The estimated blood loss according to the endoscopist was in the order of 200 mL. Based on that, the patient was intubated to protect her airways. Procedure was completed. NG tube was placed and the patient was brought into the intensive care unit for further care and management. At this point in time, the patient is sedated with propofol which is running at 50 mcg/kg per minute. The patient is hemodynamically stable with a most recent BP being at 160/72. Her current pulse ox is 99%. Her current heart rate is sinus at the rate of 66. She is on a mechanical ventilator on assist control mode at the rate of 12 with tidal volume of 450 and FiO2 of 60% with a PEEP of 5. Chest x-ray post intubation showed volume loss and significant opacification of the left upper lobe and the left lower lobe along with some cardiomegaly. OG tube is in a good location. F indings are highly suspicious for aspiration knowing that there was a car of sign in the left lower lobe bronchus. The right lung is essentially clear. ET tube highs and trachea and needs to be pushed and by around 1 cm. The patient's blood work shows a white cell count of 5.4 with a hemoglobin of 12.4 and a platelet count is still pending for now. The renal function is stable with a creatinine of 0.9 and a BUN of 18 with a serum bicarb of 21 and a sodium level of 139. LFTs are normal. VIKAS was negative. Hepatitis profile was negative. Anti-smooth muscle antibodies were also negative. The patient had a blood gas that showed a pH of 7.32 with a pCO2 of 42 and pO2 of 240. This was done and FiO2 of 100%. The NG tube is also in place and the patient has thick bloody output amount to be determined by the nursing staff. Note that this patient was Hospital as in the past for GI bleed. She was in the hospital back in January 2021 for coffee-ground emesis. Investigation revealed that the patient had a cryptogenic liver cirrhosis and she was also found to have mid and distal esophageal varices for which she received previous esophageal variceal ligation. She received another ligation on March 2021 and she was also placed on and that I'll 10 mg by mouth 3 times a day. She was also maintained on oral iron supplements. She has diabetes mellitus, hypertension and hyperlipidemia as comorbid conditions. During her last EGD that was done on this patient on 06/17/2021 showed a 1 cm antral ulcer that was biopsied at the same time there was large mid to distal esophageal varices and she was asked to continue the same treatment. During her last procedure in May 2021, a total of 6 bands were deployed without any complications. On today's evaluation of 09/26/2021, the patient is doing well and she is hemodynamically stable and with it is no indication for any ongoing bleeding. NG tube is in place and output has been on 35 mL overnight. No evidence of any bright red blood per rectum. No evidence of any melanotic stools. The patient is hemodynamically stable and in fact the patient is slightly hypertensive. Hemoglobin is at 11.7 and there is only slight drop compared to yesterday. Platelet count is at 76. The patient remains on IV Sandostatin at a dose of 50 mcg/h. The patient is also on IV Protonix. Meanwhile, the patient did aspirate. Were not having any bloody output from the orotracheal tube. The patient's chest x-ray from today showed marked improvement in the volume status and infiltration of the left. The patient is covered with IV Zosyn for any potential aspiration. On a mechanical ventilator, she is an assist-control mode at the rate of 12, tidal volume of 450, FiO2 of 40% with a PEEP of 5. No fever. No chills. Remains on IV Zosyn. A triple lumen catheter was inserted yesterday successful in the left subclavian. There are utilizing the triple- lumen catheter. The patient remains nothing by mouth. Clearance was given by gastroenterology to initiate the patient on and that the dose of 10 mg E0 3 times a day. Otherwise, no other significant events overnight. The patient is was sedated with propofol which is currently running at 10 mcg/kg per minute. She is easily arousable and when the process of weaning her off the sedation and assessing her ability to wean and checking her weaning parameters. GI still on the case. Adequate hemostasis has been achieved. Objective - Vital Signs Vital signs: Vital Signs Temp 98.7 F 09/26/21 08:00 Pulse 62 09/26/21 08:00 Resp 20 09/26/21 08:00 BP 152/63 09/26/21 08:00 Pulse Ox 99 09/26/21 08:00 FiO2 40 09/26/21 08:00 Intake & Output 09/25/21 09/26/21 09/26/21 18:59 06:59 18:59 Intake Total 5664.671 8218.534 124.458 Output Total 256 590 120 Balance 1743.424 729.534 4.458 Weight 83.2 kg 86 kg Intake: IV 900 550 50 Sodium Chloride 0.9% 1, 550 50 000 ml @ 50 mls/hr IV . Q20H [facility] Rx#:[id number] Intake, IV Titration 1099.424 769.534 74.458 Amount Magnesium Sulfate-D5w Pmx 200 1 gm In Dextrose/Water 1 100ml.bag @ 100 mls/hr IVPB Q1H [facility] Rx#: [id number] Octreotide 500 mcg In 250 488.75 Sodium Chloride 0.9% 250 ml @ 50 MCG/HR 25 mls/hr IV .Q10H [facility] Rx#: [id number] Piperacillin-Tazobactam 3 100 .375 gm In Sodium Chloride 0.9% 100 ml @ 25 mls/hr IVPB Q8HR [facility] Rx# :[id number] Sodium Chloride 0.9% 1, 450 50 000 ml @ 50 mls/hr IV . Q20H [facility] Rx#:[id number] propofoL 1,000 mg In 99.424 230.784 74.458 Empty Bag 1 bag @ 5 MCG/ KG/MIN 2.496 mls/hr IV . Q24H [facility] Rx#:[id number] Output: Gastric Drainage 75 Urine 256 590 45 Other: Voiding Method Indwelling Catheter Indwelling Catheter - Exam Gen. appearance the patient is calm and comfortable sedated for now orogastric and orotracheal tube are both in place. The patient bloody output from the NG tube and output is minimal at this point in time and amount of blood collecting in the canister is in the order of 50-100 mL. No active bleeding for now. The patient is quite success with the mechanical ventilator. Head exam was generally normal. There was no scleral icterus or corneal arcus. Mucous membranes were moist. Neck was supple and without jugular venous distension, thyromegaly, or carotid bruits. Carotids were easily palpable bilaterally. There was no adenopathy. Lungs were clear to auscultation and percussion on the right and there is diminished breath on the left, and with normal diaphragmatic excursion. No wheezes or rales were noted. Cardiac exam revealed the PMI to be normally situated and sized. The rhythm was regular and no extrasystoles were noted during several minutes of auscultation. The first and second heart sounds were normal and physiologic splitting of the second heart sound was noted. There were no murmurs, rubs, clicks, or gallops. Abdominal exam revealed normal bowel sounds. The abdomen was soft, non-tender, and without masses, organomegaly, or appreciable enlargement of the abdominal aorta. There is some mild abdominal distention possibly related to some fluid wave and ascites. Examination of the extremities revealed easily palpable radial, femoral and pedal pulses. There was no cyanosis, clubbing or edema. Examination of the skin revealed no evidence of significant rashes, suspicious appearing nevi or other concerning lesions. Neurologic the sedated. - Labs CBC & Chem 7: 09/26/21 08:05 09/26/21 08:05 Labs: Abnormal Lab Results - Last 24 Hours (Table) 09/25/21 09/25/21 09/25/21 Range/Units 10:43 10:43 11:00 WBC (3.8-10.6) k/uL RDW (11.5-15.5) % Plt Count 74 L (150-450) k/uL ABG pH (7.35-7.45) ABG pCO2 (35-45) mmHg ABG pO2 (83-108) mmHg ABG HCO3 (21-25) mmol/L ABG Total CO2 (19-24) mmol/L ABG O2 Saturation (94-97) % Sodium (137-145) mmol/L Chloride 108 H (98-107) mmol/L Carbon Dioxide 21 L (22-30) mmol/L BUN 18 H (7-17) mg/dL Glucose 149 H (74-99) mg/dL POC Glucose (mg/dL) (70-110) mg/dL Calcium (8.4-10.2) mg/dL Urine Appearance Turbid H (Clear) Urine Protein Trace H (Negative) Amorphous Sediment Occasional H (None) /hpf Urine Bacteria Rare H (None) /hpf Urine Mucus Rare H (None) /hpf 09/25/21 09/25/21 09/25/21 Range/Units 11:11 11:42 16:42 WBC 12.1 H (3.8-10.6) k/uL RDW (11.5-15.5) % Plt Count 68 L (150-450) k/uL ABG pH 7.32 L (7.35-7.45) ABG pCO2 48 H (35-45) mmHg ABG pO2 240 H (83-108) mmHg ABG HCO3 (21-25) mmol/L ABG Total CO2 26 H (19-24) mmol/L ABG O2 Saturation 100.0 H (94-97) % Sodium (137-145) mmol/L Chloride (98-107) mmol/L Carbon Dioxide (22-30) mmol/L BUN (7-17) mg/dL Glucose (74-99) mg/dL POC Glucose (mg/dL) 154 H (70-110) mg/dL Calcium (8.4-10.2) mg/dL Urine Appearance (Clear) Urine Protein (Negative) Amorphous Sediment (None) /hpf Urine Bacteria (None) /hpf Urine Mucus (None) /hpf 09/25/21 09/25/21 09/26/21 Range/Units 18:02 23:38 00:10 WBC 11.4 H (3.8-10.6) k/uL RDW (11.5-15.5) % Plt Count 69 L (150-450) k/uL ABG pH (7.35-7.45) ABG pCO2 (35-45) mmHg ABG pO2 (83-108) mmHg ABG HCO3 (21-25) mmol/L ABG Total CO2 (19-24) mmol/L ABG O2 Saturation (94-97) % Sodium (137-145) mmol/L Chloride (98-107) mmol/L Carbon Dioxide (22-30) mmol/L BUN (7-17) mg/dL Glucose (74-99) mg/dL POC Glucose (mg/dL) 175 H 135 H (70-110) mg/dL Calcium (8.4-10.2) mg/dL Urine Appearance (Clear) Urine Protein (Negative) Amorphous Sediment (None) /hpf Urine Bacteria (None) /hpf Urine Mucus (None) /hpf 09/26/21 09/26/21 09/26/21 Range/Units 05:52 06:28 08:05 WBC (3.8-10.6) k/uL RDW (11.5-15.5) % Plt Count (150-450) k/uL ABG pH 7.34 L (7.35-7.45) ABG pCO2 48 H (35-45) mmHg ABG pO2 125 H (83-108) mmHg ABG HCO3 26 H (21-25) mmol/L ABG Total CO2 27 H (19-24) mmol/L ABG O2 Saturation 99.0 H (94-97) % Sodium 136 L (137-145) mmol/L Chloride (98-107) mmol/L Carbon Dioxide (22-30) mmol/L BUN 18 H (7-17) mg/dL Glucose 159 H (74-99) mg/dL POC Glucose (mg/dL) 148 H (70-110) mg/dL Calcium 8.2 L (8.4-10.2) mg/dL Urine Appearance (Clear) Urine Protein (Negative) Amorphous Sediment (None) /hpf Urine Bacteria (None) /hpf Urine Mucus (None) /hpf 09/26/21 Range/Units 08:05 WBC (3.8-10.6) k/uL RDW 15.6 H (11.5-15.5) % Plt Count 76 L (150-450) k/uL ABG pH (7.35-7.45) ABG pCO2 (35-45) mmHg ABG pO2 (83-108) mmHg ABG HCO3 (21-25) mmol/L ABG Total CO2 (19-24) mmol/L ABG O2 Saturation (94-97) % Sodium (137-145) mmol/L Chloride (98-107) mmol/L Carbon Dioxide (22-30) mmol/L BUN (7-17) mg/dL Glucose (74-99) mg/dL POC Glucose (mg/dL) (70-110) mg/dL Calcium (8.4-10.2) mg/dL Urine Appearance (Clear) Urine Protein (Negative) Amorphous Sediment (None) /hpf Urine Bacteria (None) /hpf Urine Mucus (None) /hpf Assessment and Plan Plan: Massive upper GI bleed secondary to bleeding esophageal varices post EGD that was initially an elective procedure and later on the patient had to be intubated and placed on a mechanical ventilator because of massive bleeding that occurred from a esophageal variceal banding. The patient was intubated and her airway was secured and following that another band was applied to the distal esophageal varices with control of the bleeding. Currently the patient is an NG tube in place. Hemoglobin is stable at 11.7 and there is no active bleeding. NG tube output is minimal at this point in time and the patient's has achieved adequate hemostasis post esophageal variceal banding. The patient is doing well and she is hemodynamically stable for now. NG tube still in place and the patient remains intubated on a mechanical ventilator. Acute hypoxic respiratory failure secondary to aspiration as the patient developed volume loss and left lung infiltration and she had to be intubated for airway protection. Currently still on a mechanical ventilator. Chest x-ray shows interval improvement and the patient is covered with IV Zosyn. No bloody output from the orotracheal tube. Cryptogenic liver cirrhosis Portal hypertension secondary liver cirrhosis with multiple distal esophageal varices with previous banding on multiple occasions and the most banding procedure was done today and this was an elective procedure. Patient also has portal gastropathy and a 1 cm gastric ulcer that was identified on a previous EGD. Previous history of blood loss anemia, current hemoglobin is at 11.7. This can be potentially a hemoconcentrated sample. Left lung pneumonia/aspiration Acute hypoxic respiratory failure secondary to aspiration of blood secondary to upper GI bleed and the patient is currently intubated on a mechanical ventilator. Hypertension Hyperlipidemia Diabetes mellitus Splenomegaly secondary liver cirrhosis Ascites secondary to liver cirrhosis Chronic thrombocytopenia secondary to liver cirrhosis Plan Continue vent support The patient is stable hemodynamically and there is no signs of bleeding. For that reason, went to wean it off the sedation and check her weaning parameters Check weaning parameters after that the patient be given this point is breathing trial Cover the patient with IV Zosyn, noted the chest x-ray is improved considerably Utilize DuoNeb nebulized treatment 4 times a day [id number] Keep NG tube in place and NG tube can be removed post extubation as long as there is no evidence of any ongoing bleeding. IV Protonix IV octreotide Hydralazine 10 mg IV every 6-8 hours for systolic blood pressure above 160 Hold oral hypoglycemics and put the patient is in a sinus tachycardia coverage. Compression devices to lower extremity is 40 prophylaxis Established a triple lumen catheter Condition is critical and will continue to follow. Critical care eval, >30 min Time with Patient: Greater than 30
[2021-09-26] MEDS: LOSARTAN 50 MG TAB PO SCH (10:50)
[2021-09-26 11:53] LABS: Glucose,Whole Blood 175 mg/dL (70-110)
--- NOTE | 2021-09-26 13:13 | P.PN ---
Subjective Progress Note Date: 09/26/21 (delayed charting seen at approx 0940) Principal diagnosis: GI bleed Patient is 66-year-old female with nonalcoholic fatty liver disease complicated by cirrhosis and esophageal varices, hypertension, dyslipidemia, and diabetes mellitus type 2 who presented for elective outpatient EGD. During that time she had an acute variceal bleed. She was started on octreotide and intubated. She then had the successfully ligated. She was subsequently admitted to the ICU. Patient's hemoglobin has remained stable. Patient seen and examined at bedside. She is awake and alert and following commands. She is awaiting extubation. She shakes head no to being in pain, nauseated, and tired. General: ill appearing, no distress, appears at stated age Derm: warm, dry Head: atraumatic, normocephalic, symmetric Eyes: EOMI, no lid lag, anicteric sclera Mouth: no lip lesion, mucus membranes dry Cardiovascular: S1S2 reg, no murmur, positive posterior tibial pulse bilateral, Lungs: CTA bilateral, no rhonchi, no rales , no accessory muscle use Abdominal: soft, nontender to palpation, no guarding, no appreciable organomegaly Ext: no gross muscle atrophy, no edema, no contractures Neuro: CN II-XI grossly intact, no focal neuro deficits Psych: Alert, oriented, appropriate affect Assessment/plan: Esophageal varices with bleed Nonalcoholic steatohepatitis with cirrhosis Portal gastropathy -Octreotide -GI recommendations -Propranolol -Limit IV fluids Hypertension, accelerated -Resume home Cozaar -Continue with propranolol -Follow blood pressures Dyslipidemia -Continue with statin Diabetes mellitus type 2 -Hold metformin and glipizide -Sliding-scale insulin -Follow blood sugars DVT prophylaxis: SCDs Discussed with: Patient, nursing Anticipated discharge: in 1-[address]: home A total of 35 minutes was spent on the care of this complex patient more than 50% of the time was spent in counseling and care coordination. Objective - Vital Signs Vital signs: Vital Signs Temp 98.2 F 09/26/21 12:00 Pulse 70 09/26/21 13:00 Resp 15 09/26/21 13:00 BP 128/50 09/26/21 13:00 Pulse Ox 98 09/26/21 13:00 FiO2 40 09/26/21 08:00 Intake & Output 06/09/26/21 09/26/21 18:59 06:59 18:59 Intake Total 3989.838 3971.534 429.450 Output Total 256 590 675 Balance 1743.424 729.534 -245.550 Weight 83.2 kg 86 kg Intake: IV 900 550 350 Sodium Chloride 0.9% 1, 550 350 000 ml @ 50 mls/hr IV . Q20H [facility] Rx#:[id number] Intake, IV Titration 1099.424 769.534 79.450 Amount Magnesium Sulfate-D5w Pmx 200 1 gm In Dextrose/Water 1 100ml.bag @ 100 mls/hr IVPB Q1H [facility] Rx#: [id number] Octreotide 500 mcg In 250 488.75 Sodium Chloride 0.9% 250 ml @ 50 MCG/HR 25 mls/hr IV .Q10H [facility] Rx#: [id number] Piperacillin-Tazobactam 3 100 .375 gm In Sodium Chloride 0.9% 100 ml @ 25 mls/hr IVPB Q8HR [facility] Rx# :[id number] Sodium Chloride 0.9% 1, 450 50 000 ml @ 50 mls/hr IV . Q20H [facility] Rx#:[id number] propofoL 1,000 mg In 99.424 230.784 79.450 Empty Bag 1 bag @ 5 MCG/ KG/MIN 2.496 mls/hr IV . Q24H [facility] Rx#:[id number] Output: Gastric Drainage 75 Urine 256 590 600 Other: Voiding Method Indwelling Catheter Indwelling Catheter Indwelling Catheter - Labs CBC & Chem 7: 09/26/21 08:05 09/26/21 08:05 Labs: Abnormal Lab Results - Last 24 Hours (Table) 09/25/21 09/25/21 09/25/21 Range/Units 16:42 18:02 23:38 WBC 12.1 H (3.8-10.6) k/uL RDW (11.5-15.5) % Plt Count 68 L (150-450) k/uL ABG pH (7.35-7.45) ABG pCO2 (35-45) mmHg ABG pO2 (83-108) mmHg ABG HCO3 (21-25) mmol/L ABG Total CO2 (19-24) mmol/L ABG O2 Saturation (94-97) % Sodium (137-145) mmol/L BUN (7-17) mg/dL Glucose (74-99) mg/dL POC Glucose (mg/dL) 175 H 135 H (70-110) mg/dL Calcium (8.4-10.2) mg/dL 09/26/21 09/26/21 09/26/21 Range/Units 00:10 05:52 06:28 WBC 11.4 H (3.8-10.6) k/uL RDW (11.5-15.5) % Plt Count 69 L (150-450) k/uL ABG pH 7.34 L (7.35-7.45) ABG pCO2 48 H (35-45) mmHg ABG pO2 125 H (83-108) mmHg ABG HCO3 26 H (21-25) mmol/L ABG Total CO2 27 H (19-24) mmol/L ABG O2 Saturation 99.0 H (94-97) % Sodium (137-145) mmol/L BUN (7-17) mg/dL Glucose (74-99) mg/dL POC Glucose (mg/dL) 148 H (70-110) mg/dL Calcium (8.4-10.2) mg/dL 09/26/21 09/26/21 09/26/21 Range/Units 08:05 08:05 11:51 WBC (3.8-10.6) k/uL RDW 15.6 H (11.5-15.5) % Plt Count 76 L (150-450) k/uL ABG pH (7.35-7.45) ABG pCO2 (35-45) mmHg ABG pO2 (83-108) mmHg ABG HCO3 (21-25) mmol/L ABG Total CO2 (19-24) mmol/L ABG O2 Saturation (94-97) % Sodium 136 L (137-145) mmol/L BUN 18 H (7-17) mg/dL Glucose 159 H (74-99) mg/dL POC Glucose (mg/dL) 175 H (70-110) mg/dL Calcium 8.2 L (8.4-10.2) mg/dL Microbiology - Last 24 Hours (Table) 09/26/21 00:16 Sputum Culture - Preliminary Sputum
[2021-09-26 18:00] LABS: Glucose,Whole Blood 157 mg/dL (70-110)
[2021-09-26 23:29] LABS: Glucose,Whole Blood 136 mg/dL (70-110)
[2021-09-27] MEDS: OCTREOTIDE 500 MCG in SODIUM CHLORIDE 0.9% 250 ML IV SCH (00:58)
[2021-09-27] MEDS: SODIUM CHLORIDE 0.9% 1,000 ML IV SCH (05:13)
[2021-09-27 06:18] LABS: Basophils % (A) 0 %; Eosinophils # (A) 0.3 k/uL (0-0.7); Eosinophils % (A) 4 %; HCT 31.5 % (34.0-46.0); HGB 10.6 gm/dL (11.4-16.0); Lymphocytes % (A) 17 %; MCH 29.2 pg (25.0-35.0); MCHC 33.8 g/dL (31.0-37.0); MCV 86.3 fL (80.0-100.0); Mean Platelet Volume 10.3; Monocytes # (A) 0.6 k/uL (0-1.0); Monocytes % (A) 9 %; Neutrophils # (A) 4.2 k/uL (1.3-7.7); Neutrophils % (A) 68 %; Platelet Count 70 k/uL (150-450); RBC 3.65 m/uL (3.80-5.40); RDW 15.3 % (11.5-15.5); WBC 6.2 k/uL (3.8-10.6)
[2021-09-27 06:36] LABS: Albumin 3.3 g/dL (3.5-5.0); Calcium 8.1 mg/dL (8.4-10.2); Total Bilirubin 1.7 mg/dL (0.2-1.3); Total Protein 5.9 g/dL (6.3-8.2)
[2021-09-27 06:39] LABS: Glucose,Whole Blood 150 mg/dL (70-110)
[2021-09-27] MEDS: INSULIN ASPART (NovoLOG) 100 UNIT/ML VIAL SQ SCH ×2 (06:40→11:31)
--- NOTE | 2021-09-27 07:37 | XR ---
EXAMINATION TYPE: XR chest 1V portable DATE OF EXAM: 09/27/2021 HISTORY: Shortness of breath. COMPARISON: 09/26/2021 TECHNIQUE: Single view of the chest is submitted. FINDINGS: Demonstrated are scattered senescent parenchymal change. Endotracheal tube has been removed. Left subclavian central venous line remains in place. NG tube has been removed. Improved aeration left lower lobe with residual atelectasis or infiltrate noted. The heart is stable. Hilar and mediastinal structures are within normal limits. Degenerative changes are seen of the dorsal spine. IMPRESSION: 1. Improved aeration left lower lobe with residual atelectasis or infiltrate noted.
[2021-09-27] MEDS: IPRATROPIUM-ALBUTEROL 3 ML NEB INHALATION SCH ×2 (07:38→11:01)
[2021-09-27] MEDS: PROPRANOLOL 10 MG TAB PO SCH (08:24)
[2021-09-27] MEDS: FERROUS SULFATE 325 MG TAB PO SCH (08:24)
[2021-09-27] MEDS: ESCITALOPRAM 10 MG TAB PO SCH (08:24)
[2021-09-27] MEDS: ATORVASTATIN 10 MG TAB PO SCH (08:24)
[2021-09-27] MEDS: LOSARTAN 50 MG TAB PO SCH (08:24)
[2021-09-27] MEDS: PIPERACILLIN-TAZOBACTAM 3.375 GM in SODIUM CHLORIDE 0.9% 100 ML IVPB SCH (08:24)
[2021-09-27] MEDS: PANTOPRAZOLE 40 MG/10 ML VIAL IV SCH (08:24)
[2021-09-27] MEDS: LACTATED RINGERS 1,000 ML IV SCH (08:25)
--- NOTE | 2021-09-27 09:28 | P.PN ---
Subjective Progress Note Date: 09/27/21 Principal diagnosis: Esophageal varices, upper GI bleed This is 66-year-old white female who came in for elective esophageal variceal ligation yesterday with Dr. Mcclellan. During the procedure she had some bleeding from that was eventually controlled with the band. However she was intubated during the procedure and brought to the ICU. Yesterday the patient was weaned from sedation and ultimately extubated. She has been on a clear liquid diet and states she is tolerating that just fine. She has had no abdominal pain, nausea, or vomiting. She's been afebrile. Repeat chest x-ray showed improved aeration left lower lobe with residual atelectasis or infiltrate noted. She's on Zosyn. She's been afebrile. Today's labs WBC 6.2 hemoglobin 10.6 hematocrit 31.5 platelet count 70,000 sodium 139 potassium 4.0B 120 creatinine 1.07 total bilirubin 1.7 AST 25 ALT 19 alkaline phosphatase 80 Objective - Vital Signs Vital signs: Vital Signs Temp 98.8 F 09/27/21 00:00 Pulse 69 09/27/21 07:48 Resp 18 09/27/21 07:00 BP 116/55 09/27/21 07:00 Pulse Ox 95 09/27/21 07:38 FiO2 40 09/26/21 08:00 Intake & Output 09/26/21 09/27/21 09/27/21 18:59 06:59 18:59 Intake Total 919.033 824.167 50 Output Total 1470 1105 75 Balance -550.967 -280.833 -25 Weight 87 kg Intake: IV 600 600 50 Sodium Chloride 0.9% 1, 600 600 50 000 ml @ 50 mls/hr IV . Q20H [facility] Rx#:[id number] Intake, IV Titration 319.033 224.167 Amount Octreotide 500 mcg In 239.583 224.167 Sodium Chloride 0.9% 250 ml @ 50 MCG/HR 25 mls/hr IV .Q10H [facility] Rx#: [id number] propofoL 1,000 mg In 79.450 Empty Bag 1 bag @ 5 MCG/ KG/MIN 2.496 mls/hr IV . Q24H [facility] Rx#:[id number] Output: Gastric Drainage 75 Urine 1395 1105 75 Other: Voiding Method Indwelling Catheter Indwelling Catheter - Exam General appearance: The patient is awake and alert. Appears in no acute distress. HET: Head is normocephalic and atraumatic. NG tube in place.. Neck: Supple without lymphadenopathy. Abdomen: Soft, nontender, nondistended with bowel sounds. No guarding or rigidity. Extremities: Normal skin color and turgor. No pedal edema Skin: No rashes, no jaundice Neurological: Alert and oriented 3 - Labs CBC & Chem 7: 09/27/21 05:26 09/27/21 05:26 Labs: Abnormal Lab Results - Last 24 Hours (Table) 09/26/21 09/26/21 09/26/21 Range/Units 08:05 08:05 11:51 RBC (3.80-5.40) m/uL Hgb (11.4-16.0) gm/dL Hct (34.0-46.0) % RDW 15.6 H (11.5-15.5) % Plt Count 76 L (150-450) k/uL Sodium 136 L (137-145) mmol/L BUN 18 H (7-17) mg/dL Creatinine (0.52-1.04) mg/dL Glucose 159 H (74-99) mg/dL POC Glucose (mg/dL) 175 H (70-110) mg/dL Calcium 8.2 L (8.4-10.2) mg/dL Total Bilirubin (0.2-1.3) mg/dL Total Protein (6.3-8.2) g/dL Albumin (3.5-5.0) g/dL 09/26/21 09/26/21 09/27/21 Range/Units 17:48 23:27 05:26 RBC 3.65 L (3.80-5.40) m/uL Hgb 10.6 L (11.4-16.0) gm/dL Hct 31.5 L (34.0-46.0) % RDW (11.5-15.5) % Plt Count 70 L (150-450) k/uL Sodium (137-145) mmol/L BUN (7-17) mg/dL Creatinine (0.52-1.04) mg/dL Glucose (74-99) mg/dL POC Glucose (mg/dL) 157 H 136 H (70-110) mg/dL Calcium (8.4-10.2) mg/dL Total Bilirubin (0.2-1.3) mg/dL Total Protein (6.3-8.2) g/dL Albumin (3.5-5.0) g/dL 09/27/21 09/27/21 Range/Units 05:26 06:37 RBC (3.80-5.40) m/uL Hgb (11.4-16.0) gm/dL Hct (34.0-46.0) % RDW (11.5-15.5) % Plt Count (150-450) k/uL Sodium (137-145) mmol/L BUN 20 H (7-17) mg/dL Creatinine 1.07 H (0.52-1.04) mg/dL Glucose 141 H (74-99) mg/dL POC Glucose (mg/dL) 150 H (70-110) mg/dL Calcium 8.1 L (8.4-10.2) mg/dL Total Bilirubin 1.7 H (0.2-1.3) mg/dL Total Protein 5.9 L (6.3-8.2) g/dL Albumin 3.3 L (3.5-5.0) g/dL Microbiology - Last 24 Hours (Table) 09/26/21 00:16 Gram Stain - Preliminary Sputum Sputum Culture - Preliminary Assessment and Plan (1) Esophageal varices Narrative/Plan: This is 66-year-old female with a history of liver cirrhosis and esophageal varices was scheduled today for an upper endoscopy with an elective outpatient basis for esophageal variceal ligation. Her last EGD with variceal ligation was performed in May 2021 and at that time was noted to have large esophageal rocio ices. During the procedure the patient had a distal esophageal large varix with active bleeding, during the procedure she was intubated to protect her airway. Patient was stablized, bands were deployed and the bleeding was controlled. She was transferred to the ICU for admission with ICU and medicine following. Patient has been extubated, NG tube removed. No signs or symptoms of GI bleed. No abdominal pain nausea or vomiting. Sandostatin will be discontinued and diet will be advanced. Current Visit: Yes Status: Acute Code(s): I85.00 - ESOPHAGEAL VARICES WITHOUT BLEEDING SNOMED Code(s): 07410136 (2) Cirrhosis of liver Current Visit: Yes Status: Acute Code(s): K74.60 - UNSPECIFIED CIRRHOSIS OF LIVER SNOMED Code(s): 80380858 Plan: 1. Continue symptomatic and supportive care 2. Discontinue Sandostatin 3. Protonix 40 mg twice a day 4. Advance diet to consistent carbohydrate 5. Encourage ambulation 6. Incentive spirometer to bedside 7. Continue Inderal 10 mg 3 times a day 8. Patient is cleared from gastroenterology for discharge if she tolerates diet Thank you for this consultation, we will continue to follow closely. Dr. Doris Mcclellan I agree with the dictator's note, documented as a scribe by Dara Mcdermott.
[2021-09-27] MEDS ORDERED: ONDANSETRON 4 MG/2 ML VIAL IVP STA (09:45)
[2021-09-27 11:31] LABS: Glucose,Whole Blood 165 mg/dL (70-110)
--- NOTE | 2021-09-27 11:49 | P.PN ---
Subjective Progress Note Date: 09/27/21 Patient is a 66-year-old, pleasant, white female with history of liver cirrhosis/esophageal varices is scheduled for an upper endoscopy on an elective basis for esophageal variceal ligation. Her last EGD with variceal ligation was performed in May 2021 and at that time was noted to have large esophageal varices. The patient underwent an EGD today by Dr. Parra. The patient was found to have a distal esophageal large varix with active bleeding as the band was being deploying status post variceal ligation and control of bleeding, and there was also Moderate to severe portal hypertensive gastropathy. Reviewed the operative note, and the patient was found to have large esophageal varices in the distal esophagus and at a time of banding, there was significant amount of bleeding noted. The banding itself did not seem to be successful as the patient continued to have bleeding. The scope was removed. It was decided to intubate the patient to protect her airway as there was obvious consented the patient could've aspirated. After the intubation process, the scope was placed again and the bleeding varices was identified and using suction, it was possible to deploy another band and the bleeding stopped immediately. The estimated blood loss according to the endoscopist was in the order of 200 mL. Based on that, the patient was intubated to protect her airways. Procedure was completed. NG tube was placed and the patient was brought into the intensive care unit for further care and management. At this point in time, the patient is sedated with propofol which is running at 50 mcg/kg per minute. The patient is hemodynamically stable with a most recent BP being at 160/72. Her current pulse ox is 99%. Her current heart rate is sinus at the rate of 66. She is on a mechanical ventilator on assist control mode at the rate of 12 with tidal volume of 450 and FiO2 of 60% with a PEEP of 5. Chest x-ray post intubation showed volume loss and significant opacification of the left upper lobe and the left lower lobe along with some cardiomegaly. OG tube is in a good location. F indings are highly suspicious for aspiration knowing that there was a car of sign in the left lower lobe bronchus. The right lung is essentially clear. ET tube highs and trachea and needs to be pushed and by around 1 cm. The patient's blood work shows a white cell count of 5.4 with a hemoglobin of 12.4 and a platelet count is still pending for now. The renal function is stable with a creatinine of 0.9 and a BUN of 18 with a serum bicarb of 21 and a sodium level of 139. LFTs are normal. VIKAS was negative. Hepatitis profile was negative. Anti-smooth muscle antibodies were also negative. The patient had a blood gas that showed a pH of 7.32 with a pCO2 of 42 and pO2 of 240. This was done and FiO2 of 100%. The NG tube is also in place and the patient has thick bloody output amount to be determined by the nursing staff. Note that this patient was Hospital as in the past for GI bleed. She was in the hospital back in January 2021 for coffee-ground emesis. Investigation revealed that the patient had a cryptogenic liver cirrhosis and she was also found to have mid and distal esophageal varices for which she received previous esophageal variceal ligation. She received another ligation on March 2021 and she was also placed on and that I'll 10 mg by mouth 3 times a day. She was also maintained on oral iron supplements. She has diabetes mellitus, hypertension and hyperlipidemia as comorbid conditions. During her last EGD that was done on this patient on 06/17/2021 showed a 1 cm antral ulcer that was biopsied at the same time there was large mid to distal esophageal varices and she was asked to continue the same treatment. During her last procedure in May 2021, a total of 6 bands were deployed without any complications. On today's evaluation of 09/26/2021, the patient is doing well and she is hemodynamically stable and with it is no indication for any ongoing bleeding. NG tube is in place and output has been on 35 mL overnight. No evidence of any bright red blood per rectum. No evidence of any melanotic stools. The patient is hemodynamically stable and in fact the patient is slightly hypertensive. Hemoglobin is at 11.7 and there is only slight drop compared to yesterday. Platelet count is at 76. The patient remains on IV Sandostatin at a dose of 50 mcg/h. The patient is also on IV Protonix. Meanwhile, the patient did aspirate. Were not having any bloody output from the orotracheal tube. The patient's chest x-ray from today showed marked improvement in the volume status and infiltration of the left. The patient is covered with IV Zosyn for any potential aspiration. On a mechanical ventilator, she is an assist-control mode at the rate of 12, tidal volume of 450, FiO2 of 40% with a PEEP of 5. No fever. No chills. Remains on IV Zosyn. A triple lumen catheter was inserted yesterday successful in the left subclavian. There are utilizing the triple- lumen catheter. The patient remains nothing by mouth. Clearance was given by gastroenterology to initiate the patient on and that the dose of 10 mg E0 3 times a day. Otherwise, no other significant events overnight. The patient is was sedated with propofol which is currently running at 10 mcg/kg per minute. She is easily arousable and when the process of weaning her off the sedation and assessing her ability to wean and checking her weaning parameters. GI still on the case. Adequate hemostasis has been achieved. 09/27/2021, the patient is extubated and the patient is awake and alert following commands and answering questions. The repeat chest x-ray from today shows some minimal residual infiltration left lung base. There is adequate aeration of the left lung. The patient is currently on 1 L of oxygen nasal cannula. No respiratory distress. NG tube was removed and the patient was taking soft diet yesterday and diet will be further advanced. No hematemesis. No melena stool. No abdominal pain. No altered mentation. No signs of any hepatic encephalopathy. The patient will be taken off the octreotide today. Sodium is at 139, BUN is at 20 with a creatinine of 1.07. The white cell count is at 6.2 with a hemoglobin of 10.6. The patient has no specific complaints otherwise for now. The patient comes at 70 and the patient was started back on Inderal . Objective - Vital Signs Vital signs: Vital Signs Temp 98.8 F 09/27/21 00:00 Pulse 68 09/27/21 11:15 Resp 17 09/27/21 09:00 BP 124/71 09/27/21 09:00 Pulse Ox 92 L 09/27/21 09:00 FiO2 40 09/26/21 08:00 Intake & Output 09/26/21 09/27/21 09/27/21 18:59 06:59 18:59 Intake Total 919.033 824.167 300 Output Total 1470 1105 375 Balance -550.967 -280.833 -75 Weight 87 kg Intake: IV 600 600 300 Sodium Chloride 0.9% 1, 600 600 300 000 ml @ 50 mls/hr IV . Q20H [facility] Rx#:[id number] Intake, IV Titration 319.033 224.167 Amount Octreotide 500 mcg In 239.583 224.167 Sodium Chloride 0.9% 250 ml @ 50 MCG/HR 25 mls/hr IV .Q10H [facility] Rx#: [id number] propofoL 1,000 mg In 79.450 Empty Bag 1 bag @ 5 MCG/ KG/MIN 2.496 mls/hr IV . Q24H [facility] Rx#:[id number] Output: Gastric Drainage 75 Urine 1395 1105 375 Other: Voiding Method Indwelling Catheter Indwelling Catheter Indwelling Catheter - Exam Gen. appearance the patient is calm and comfortable , awake and alert and the patient is currently on 1 L of oxygen by nasal cannula, no signs of any respiratory distress Head exam was generally normal. There was no scleral icterus or corneal arcus. Mucous membranes were moist. Neck was supple and without jugular venous distension, thyromegaly, or carotid bruits. Carotids were easily palpable bilaterally. There was no adenopathy. Lungs were clear to auscultation and percussion on the right and there is diminished breath on the left, and with normal diaphragmatic excursion. No wheezes or rales were noted. Cardiac exam revealed the PMI to be normally situated and sized. The rhythm was regular and no extrasystoles were noted during several minutes of auscultation. The first and second heart sounds were normal and physiologic splitting of the second heart sound was noted. There were no murmurs, rubs, clicks, or gallops. Abdominal exam revealed normal bowel sounds. The abdomen was soft, non-tender, and without masses, organomegaly, or appreciable enlargement of the abdominal aorta. There is some mild abdominal distention possibly related to some fluid wave and ascites. Examination of the extremities revealed easily palpable radial, femoral and pedal pulses. There was no cyanosis, clubbing or edema. Examination of the skin revealed no evidence of significant rashes, suspicious appearing nevi or other concerning lesions. Neurologic alert and oriented 3, no focal neurological deficits. - Labs CBC & Chem 7: 09/27/21 05:26 09/27/21 05:26 Labs: Abnormal Lab Results - Last 24 Hours (Table) 09/26/21 09/26/21 09/26/21 Range/Units 11:51 17:48 23:27 RBC (3.80-5.40) m/uL Hgb (11.4-16.0) gm/dL Hct (34.0-46.0) % Plt Count (150-450) k/uL BUN (7-17) mg/dL Creatinine (0.52-1.04) mg/dL Glucose (74-99) mg/dL POC Glucose (mg/dL) 175 H 157 H 136 H (70-110) mg/dL Calcium (8.4-10.2) mg/dL Total Bilirubin (0.2-1.3) mg/dL Total Protein (6.3-8.2) g/dL Albumin (3.5-5.0) g/dL 09/27/21 09/27/21 09/27/21 Range/Units 05:26 05:26 06:37 RBC 3.65 L (3.80-5.40) m/uL Hgb 10.6 L (11.4-16.0) gm/dL Hct 31.5 L (34.0-46.0) % Plt Count 70 L (150-450) k/uL BUN 20 H (7-17) mg/dL Creatinine 1.07 H (0.52-1.04) mg/dL Glucose 141 H (74-99) mg/dL POC Glucose (mg/dL) 150 H (70-110) mg/dL Calcium 8.1 L (8.4-10.2) mg/dL Total Bilirubin 1.7 H (0.2-1.3) mg/dL Total Protein 5.9 L (6.3-8.2) g/dL Albumin 3.3 L (3.5-5.0) g/dL 09/27/21 Range/Units 11:30 RBC (3.80-5.40) m/uL Hgb (11.4-16.0) gm/dL Hct (34.0-46.0) % Plt Count (150-450) k/uL BUN (7-17) mg/dL Creatinine (0.52-1.04) mg/dL Glucose (74-99) mg/dL POC Glucose (mg/dL) 165 H (70-110) mg/dL Calcium (8.4-10.2) mg/dL Total Bilirubin (0.2-1.3) mg/dL Total Protein (6.3-8.2) g/dL Albumin (3.5-5.0) g/dL Microbiology - Last 24 Hours (Table) 09/26/21 00:16 Gram Stain - Preliminary Sputum Sputum Culture - Preliminary Assessment and Plan Plan: Massive upper GI bleed secondary to bleeding esophageal varices post EGD that was initially an elective procedure and later on the patient had to be intubated and placed on a mechanical ventilator because of massive bleeding that occurred from a esophageal variceal banding. The patient was intubated and her airway was secured and following that another band was applied to the distal esophageal varices with control of the bleeding. The patient has no further episodes of GI bleed. The patient an aspiration of bloody material into his lungs and the patient has full recovered and the patient was extubated yesterday. Acute hypoxic respiratory failure secondary to aspiration as the patient developed volume loss and left lung infiltration and she had to be intubated for airway protection. The patient was extubated yesterday without any major difficulties and the patient remains on IV Zosyn, currently on 1 L of oxygen by nasal cannula Cryptogenic liver cirrhosis Portal hypertension secondary liver cirrhosis with multiple distal esophageal varices with previous banding on multiple occasions and the most banding procedure was done today and this was an elective procedure. Patient also has portal gastropathy and a 1 cm gastric ulcer that was identified on a previous EGD. Previous history of blood loss anemia, current hemoglobin is at 10.6. Left lung pneumonia/aspiration Acute hypoxic respiratory failure secondary to aspiration of blood secondary to upper GI bleed and the patient is currently intubated on a mechanical vent ilator. Hypertension Hyperlipidemia Diabetes mellitus Splenomegaly secondary liver cirrhosis Ascites secondary to liver cirrhosis Chronic thrombocytopenia secondary to liver cirrhosis Plan Wean down the FiO2 to move the patient to room air oxygen Discontinue octreotide Advance diet Continue Protonix Restarted Inderal 10 mg by mouth 3 times a day Continue Zosyn for another 24 hours Transfer the patient also had the intensive care unit.
[2021-09-27 13:41] VITALS: BP 120/59; PULSE 85; RESP 18; TEMP 98
--- NOTE | 2021-09-27 13:53 | P.DS ---
Providers Date of admission: 09/25/21 10:09 Expected date of discharge: 09/27/21 Attending physician: Shania Thao MD Consults: 09/25/21 10:09 Consult Physician Stat Consulting Provider: Kumar Solano Consult Reason/Comments: icu management Do you want consulting provider notified?: Already Contacted Primary care physician: Doni Mei [facility] Course: Discharge Diagnosis: Esophageal varices with bleed Cirrhosis due to Nonalcoholic steatohepatitis Portal gastropathy Hypertension, accelerated Dyslipidemia Diabetes mellitus type 2 Hospital Course: Patient is 66-year-old female with nonalcoholic fatty liver disease complicated by cirrhosis and esophageal varices, hypertension, dyslipidemia, and diabetes mellitus type 2 who presented for elective outpatient EGD. During that time she had an acute variceal bleed. She was started on octreotide and intubated. She then had the successfully ligated. She was subsequently admitted to the ICU. Patient's hemoglobin has remained stable. She continues to do well. She was tolerating a diet. Her hemoglobin was stable. She was determined appropriate for discharge. Follow-up: Dr. Mcclellan next week, Dr. Mcguire next week, Protonix added. Patient seen and examined at bedside. Feeling well. No chest pain, shortness of breath or vomiting. Vital signs reviewed and stable. General: nontoxic, no distress, appears at stated age Derm: warm, dry Head: atraumatic, normocephalic, symmetric Eyes: EOMI, no lid lag, anicteric sclera Mouth: no lip lesion, mucus membranes moist Cardiovascular: S1S2 reg, no murmur, positive posterior tibial pulse bilateral, Lungs: CTA bilateral, no rhonchi, no rales , no accessory muscle use Abdominal: soft, nontender to palpation, no guarding, no appreciable organomegaly Ext: no gross muscle atrophy, no edema, no contractures Neuro: CN II-XI grossly intact, no focal neuro deficits Psych: Alert, oriented, appropriate affect A total of 33 minutes of time were spent preparing this complex discharge summary. Patient was discharged on 09/27/21. Patient Condition at Discharge: Stable Plan - Discharge Summary Discharge Rx Participant: No New Discharge Prescriptions: New Pantoprazole [Protonix] 40 mg PO BID #60 tab Continue metFORMIN HCL [Glucophage] 500 mg PO TID glipiZIDE XL [Glucotrol XL] 5 mg PO DAILY Simvastatin [Zocor] 20 mg PO DAILY Escitalopram [Lexapro] 10 mg PO DAILY ALPRAZolam [Xanax] 0.25 mg PO DAILY PRN PRN Reason: Anxiety Zolpidem Tartrate [Ambien] 10 mg PO HS PRN PRN Reason: Insomnia Ferrous Sulfate [Iron (65 MG Elemental)] 325 mg PO DAILY #30 tab Losartan Potassium [Cozaar] 100 mg PO DAILY Propranolol [Inderal] 10 mg PO TID #90 tab Discharge Medication List ALPRAZolam [Xanax] 0.25 mg PO DAILY PRN 01/29/21 [History] Escitalopram [Lexapro] 10 mg PO DAILY 01/29/21 [History] Losartan Potassium [Cozaar] 100 mg PO DAILY 01/29/21 [History] Simvastatin [Zocor] 20 mg PO DAILY 01/29/21 [History] Zolpidem Tartrate [Ambien] 10 mg PO HS PRN 01/29/21 [History] glipiZIDE XL [Glucotrol XL] 5 mg PO DAILY 01/29/21 [History] metFORMIN HCL [Glucophage] 500 mg PO TID 01/29/21 [History] Ferrous Sulfate [Iron (65 MG Elemental)] 325 mg PO DAILY #30 tab 02/01/21 [Rx] Propranolol [Inderal] 10 mg PO TID #90 tab 02/01/21 [Rx] Pantoprazole [Protonix] 40 mg PO BID #60 tab 09/27/21 [Rx] Follow up Appointment(s)/Referral(s): Amparo Mcclellan MD [STAFF PHYSICIAN] - 1 Week Activity/Diet/Wound Care/Special Instructions: Activity: as tolerated Diet: Low acid diet Special Instructions: Return if bleeding noted. Discharge Disposition: HOME SELF-CARE
== END 2021-09-27 14:30 | disposition home or self-care (01) | DRG 432 ==
LOC: ORWHC2ENDO 06:59 → 2SICU 09:21 → ORWHC2ENDO 10:09
PROVIDERS: ADMIT Internal Medicine; ATTEND Internal Medicine
PROC: 05HN33Z Insertion of Infusion Device into Left Internal Jugular Vein, Percutaneous Approach (ICD-10-PCS; 2021-09-25)
PROC: 0BH17EZ Insertion of Endotracheal Airway into Trachea, Via Natural or Artificial Opening (ICD-10-PCS; 2021-09-25)
PROC: 5A1935Z Respiratory Ventilation, Less than 24 Consecutive Hours (ICD-10-PCS; 2021-09-25)
PROC: 06L38CZ Occlusion of Esophageal Vein with Extraluminal Device, Via Natural or Artificial Opening Endoscopic (ICD-10-PCS; principal; 2021-09-25 08:10)
DX: K74.69 Other cirrhosis of liver (principal); I85.11 Secondary esophageal varices with bleeding; J96.01 Acute respiratory failure with hypoxia; J69.0 Pneumonitis due to inhalation of food and vomit; K76.6 Portal hypertension; D62 Acute posthemorrhagic anemia; E11.9 Type 2 diabetes mellitus without complications; E78.5 Hyperlipidemia, unspecified; I10 Essential (primary) hypertension; D69.6 Thrombocytopenia, unspecified; F41.9 Anxiety disorder, unspecified; K75.81 Nonalcoholic steatohepatitis (NASH); K31.89 Other diseases of stomach and duodenum; K25.9 Gastric ulcer, unspecified as acute or chronic, without hemorrhage or perforation; Z79.84 Long term (current) use of oral hypoglycemic drugs; Z79.899 Other long term (current) drug therapy; Z87.891 Personal history of nicotine dependence; Z88.2 Allergy status to sulfonamides
CPT/HCPCS: 36600; 43244; 71045; 80048; 80053; 81001; 82805; 83036; 83735; 85025; 85027; 85610; 86850; 86900; 86901; 87070; 87205; 94003; 94640

== ENCOUNTER 2022-04-09 07:14 | Day surgery (SDC) | payer MEDICARE ==
[2022-04-05 14:56] VITALS: BMI 27.4
[~2022-04-09 07:14] MED LIST changes: +LACTATED RINGERS 1,000 ML IV SCH
[2022-04-09 07:40] VITALS: RESP 16; TEMP 97.6
[2022-04-09 08:02] LABS: Glucose,Whole Blood 136 mg/dL (70-110)
[2022-04-09] MEDS ORDERED: PROPOFOL 10 MG/ML 20 ML VIAL IV ONE (08:56)
[2022-04-09] MEDS ORDERED: MIDAZOLAM 2 MG/2 ML VIAL ONE (08:56)
[2022-04-09] MEDS ORDERED: LIDOCAINE 2% INJ 20 MG/ML (2 ML VIAL) ONE (08:56)
[2022-04-09] MEDS ORDERED: fentaNYL (PF) 50 MCG/ML 2 ML AMP ONE (08:56)
--- NOTE | 2022-04-09 09:09 | P.PCN ---
Date of Procedure: 04/09/22 Procedure(s) Performed: BRIEF HISTORY: Patient is a 59-year-old, pleasant, white female with history of fatty liver disease with cirrhosis of the liver and esophageal variceal bleeding in the past. She is scheduled for an Upper endoscopy for follow-up of esophageal varices. Her last upper endoscopy was done in now September 2021 and the procedure was complicated by active esophageal variceal bleeding requiring hospitalization for 3 days. She remains on propranolol 20 mg 3 times daily. PROCEDURE PERFORMED: Esophagogastroduodenoscopy. PREOPERATIVE DIAGNOSIS: Follow-up esophageal varices/prior history of esophageal varices. IV sedation per anesthesia. PROCEDURE: After informed consent was obtained, the patient was brought into the endoscopy unit. IV sedation was administered by Anesthesia under continuous monitoring. Initially the Olympus GIF-140 video endoscope was inserted into the mouth. Esophagus intubated without any difficulty. It was gradually advanced into the stomach and duodenum and carefully examined. The bulb and the second part of the duodenum appeared normal. The scope at this time was withdrawn to the stomach, adequately insufflated with air, and upon careful examination, mucosa of the antrum, body, cardia and the fundus had changes consistent with mild to moderate portal hypertensive gastropathy.. The scope was then withdrawn into the esophagus. The GE junction was located at 39 cm from the incisors. There were small distal esophageal varices seen and no variceal ligation was performed. The proximal esophagus appeared normal and the patient tolerated the procedure well. IMPRESSION: 1. Small distal esophageal varices and no variceal ligation performed. 2. Mild to moderate portal hypertensive gastropathy.. RECOMMENDATIONS: The findings of this examination were discussed with the patient as well as a family. She will continue with Inderal 10 mg 3 times daily and will plan a repeat EGD in 1 year.
[2022-04-09 09:17] VITALS: PULSE 63
[2022-04-09 09:31] VITALS: BP 105/52
== END 2022-04-09 09:56 | disposition home or self-care (01) ==
LOC: ORWHC2ENDO 07:14
PROVIDERS: ATTEND Internal Medicine Gastroenterology
DX: K74.60 Unspecified cirrhosis of liver (principal); I85.00 Esophageal varices without bleeding; K76.6 Portal hypertension; K76.0 Fatty (change of) liver, not elsewhere classified; K31.89 Other diseases of stomach and duodenum; I10 Essential (primary) hypertension; E11.9 Type 2 diabetes mellitus without complications; K21.9 Gastro-esophageal reflux disease without esophagitis; Z88.2 Allergy status to sulfonamides; Z79.84 Long term (current) use of oral hypoglycemic drugs; Z79.899 Other long term (current) drug therapy
CPT/HCPCS: 43235; J2250; J3010; J2704; J2001

== ENCOUNTER → 2023-05-20 | Day surgery (SDC) | payer MEDICARE ==
[2023-05-19 10:13] VITALS: BMI 29.9
[~2023-05-20] MED LIST changes: -LACTATED RINGERS 1,000 ML IV SCH; -LIDOCAINE 1% (10MG/ML) FOR IV START INTRADERMA PRN; +PROPOFOL 10 MG/ML 20 ML VIAL IV ONE
[2023-05-20] MEDS: LACTATED RINGERS 1,000 ML IV SCH (08:55)
[2023-05-20] MEDS: LIDOCAINE 1% (10MG/ML) FOR IV START INTRADERMA PRN (09:00)
[2023-05-20 09:11] LABS: Glucose,Whole Blood 130 mg/dL (70-110)
[2023-05-20 09:15] VITALS: TEMP 97.6
--- NOTE | 2023-05-20 09:38 | P.PCN ---
Date of Procedure: 05/20/23 Procedure(s) Performed: BRIEF HISTORY: Patient is a 68-year-old, pleasant, white female with history of form fatty liver disease with cirrhosis of the liver and prior history of esophageal varices is scheduled for an upper endoscopy with variceal ligation as part of follow-up esophageal varices and prior history of esophageal variceal bleeding.. She had an episode of severe variceal bleed leading an elective upper endoscopy with variceal ligation in September 2021 requiring hospitalization. PROCEDURE PERFORMED: Esophagogastroduodenoscopy with variceal ligation. PREOPERATIVE DIAGNOSIS: Follow-up esophageal varices. IV sedation per anesthesia. PROCEDURE: After informed consent was obtained, the patient was brought into the endoscopy unit. IV sedation was administered by Anesthesia under continuous monitoring. Initially the Olympus GIF-140 video endoscope was inserted into the mouth. Esophagus intubated without any difficulty. It was gradually advanced into the stomach and duodenum and carefully examined. The bulb and the second part of the duodenum appeared normal. The scope at this time was withdrawn to the stomach, adequately insufflated with air, and upon careful examination, mucosa of the antrum, body, cardia and the fundus had changes consistent with mild to moderate portal evidence of gastropathy.. The scope was then withdrawn into the esophagus. Small hiatal hernia noted. The GE junction was located at 36 cm from the incisors. They revealed large distal esophageal varices seen. At this time the scope was removed and the esophageal variceal ligation equipment was introduced onto the tip of the scope and esophagus intubated without any difficulty and was gradually advanced into the esophagus. Using suction total of 3 bands were deployed in the distal esophageal variceal columns. Patient tolerated the procedure well. IMPRESSION: 1. Large distal esophageal varices status post recent ligation as described above and total of 3 bands were deployed. 2. Moderate portal hypertensive gastropathy 3. Mall hiatal hernia. RECOMMENDATIONS: The findings of this examination were discussed with the patient as well as a family. She was advised to be on clear liquids for lunch today. Continue with Inderal ER 60 mg daily. WILL plan a repeat upper endoscopy in 6 months..
[2023-05-20 10:22] LABS: Glucose,Whole Blood 132 mg/dL (70-110)
[2023-05-20 10:29] VITALS: BP 109/60; PULSE 68; RESP 14
== END ==
LOC: ORWHC2ENDO 08:33
PROVIDERS: ATTEND Internal Medicine Gastroenterology
DX: I85.00 Esophageal varices without bleeding (principal); K74.60 Unspecified cirrhosis of liver; K31.89 Other diseases of stomach and duodenum; K76.6 Portal hypertension; K44.9 Diaphragmatic hernia without obstruction or gangrene; I10 Essential (primary) hypertension; E78.5 Hyperlipidemia, unspecified; F41.9 Anxiety disorder, unspecified; Z88.2 Allergy status to sulfonamides; Z79.899 Other long term (current) drug therapy
CPT/HCPCS: 43244; J2704; 43255

== ENCOUNTER → 2023-06-27 | Outpatient (CLI) | payer MEDICARE ==
--- NOTE | 2023-06-27 15:06 | US ---
EXAMINATION TYPE: US liver DATE OF EXAM: 06/27/2023 COMPARISON: US 2022 CLINICAL INDICATION: Female, 68 years old with history of K74.60 cirrhosis of liver; TECHNIQUE: Multiple sonographic images of the right upper quadrant are obtained. FINDINGS: EXAM MEASUREMENTS: Liver Length: 12.6 cm Gallbladder Wall: 0.5 cm CBD: 0.5 cm Right Kidney: 9.2 x 5.3 x 4.8 cm Pancreas: visualized portions wnl, limited by overlying midline bowel gas Liver: mildly heterogeneous Gallbladder: thickened wall, 0.8cm stone Evidence for sonographic Whitley's sign: no CBD: visualized portions wnl, limited by overlying bowel gas Right Kidney: 9.6 x 8.2 x 10.7cm cyst inferior pole Minimal ascites seen RUQ IMPRESSION: 1. Minimal ascites. 2. Cholelithiasis. Gallbladder wall thickening is present diffusely. Correlate for acute cholecystiti s 3. Large simple cyst inferior pole right kidney
== END | disposition home or self-care (01) ==
LOC: RADUSWWP 08:06
PROVIDERS: ATTEND Internal Medicine Gastroenterology
DX: K74.60 Unspecified cirrhosis of liver (principal); R18.8 Other ascites; K80.20 Calculus of gallbladder without cholecystitis without obstruction; N28.1 Cyst of kidney, acquired
CPT/HCPCS: 76705

== ENCOUNTER → 2023-06-27 | Outpatient (CLI) | payer MEDICARE ==
[2023-06-27 16:22] LABS: BUN/Creat Ratio 14.23 Ratio (12.00-20.00); Blood Urea Nitrogen 18.5 mg/dL (9.0-27.0); Carbon Dioxide 24.4 mmol/L (21.6-31.8); Chloride 108 mmol/L (96-109); Glucose 80 mg/dL (70-110); Potassium 4.7 mmol/L (3.5-5.5); Sodium 143 mmol/L (135-145)
[2023-06-27 16:23] LABS: ALT 15 U/L (8-44); AST 22 U/L (13-35); Albumin 4.3 g/dL (3.8-4.9); Albumin/Globulin Ratio 1.65 Ratio (1.60-3.17); Alkaline Phosphatase 72 U/L (41-126); Calcium 9.8 mg/dL (8.7-10.3); Globulin 2.6 g/dL (1.6-3.3); Total Bilirubin 0.8 mg/dL (0.3-1.2); Total Protein 6.9 g/dL (6.2-8.2)
[2023-06-27 16:36] LABS: HCT 30.3 % (37.2-46.3); HGB 8.8 g/dL (12.0-15.0); Immature Platelet Fraction 27.9 % (1.1-6.1); Lymphocytes # (M) 1.86 X 10*3/uL (0.90-5.00); MCH 23.2 pg (27.0-32.0); MCV 79.7 FL (80.0-97.0); NRBC Per 100 WBC 0 X 10*3/uL (0.00-0.01); Platelet Count 73 X 10*3/uL (140-440); WBC 3.96 X 10*3/uL (4.50-10.00)
[2023-06-27 16:37] LABS: Basophils # (M) 0.12 X 10*3/uL (0.00-0.10); Elliptocytes 2+; Monocytes # (M) 0.08 X 10*3/uL (0.20-1.00); Neutrophils % (M) 43 %; Nucleated Red Blood Cells 3 /100 WBCS
== END | disposition home or self-care (01) ==
LOC: LABWHC1 08:36
PROVIDERS: ATTEND Internal Medicine Gastroenterology
DX: K74.60 Unspecified cirrhosis of liver (principal)
CPT/HCPCS: 36415; 80053; 82105; 85025

== ENCOUNTER → 2023-12-31 | Outpatient (CLI) | payer MEDICARE ==
--- NOTE | 2023-12-31 10:39 | US ---
EXAMINATION TYPE: US liver DATE OF EXAM: 12/31/2023 COMPARISON: NONE CLINICAL INDICATION: Female, 68 years old with history of K74.60 UNSPECIFIED CIRRHOSIS OF LIVER; Lois ent denies any changes from prior exam TECHNIQUE: Grayscale and color Doppler imaging of the right upper quadrant was performed. FINDINGS: EXAM MEASUREMENTS: Liver Length: 13.0 cm Gallbladder Wall: 0.3 cm CBD: 0.4 cm Right Kidney: 8.9 x 4.3 x 3.9 cm [employer] NOTES: Pancreas: wnl Liver: Lobular and attenuating Gallbladder: Stone redemonstrated Evidence for sonographic Whitley's sign: No CBD: wnl Right Kidney: Simple cyst redemonstrated = 10.7 x 5.8 x 10.4 cm IMPRESSION: 1. Hepatic cirrhosis, no suspicious lesions identified. 2. Cholelithiasis. 3. Simple right cyst. [facility], , 12/31/2023 10:36 AM
== END | disposition home or self-care (01) ==
LOC: RADUSWWP 09:05
PROVIDERS: ATTEND Internal Medicine Gastroenterology
DX: K74.60 Unspecified cirrhosis of liver
CPT/HCPCS: 76705

== ENCOUNTER → 2024-06-07 | Outpatient (CLI) | payer MEDICARE ==
--- NOTE | 2024-06-07 10:07 | US ---
EXAMINATION TYPE: US liver DATE OF EXAM: 06/07/2024 COMPARISON: US 12/31/2023 CLINICAL INDICATION: Female, 69 years old with history of K74.60 UNSPECIFIED CIRRHOSIS OF LIVER; Cirr hosis of liver TECHNIQUE: Grayscale and color Doppler imaging of the right upper quadrant was performed. FINDINGS: EXAM MEASUREMENTS: Liver Length: 13.3 cm Gallbladder Wall: 0.4 cm CBD: 0.6 cm Right Kidney: 8.9 x 5.0 x 4.7 cm [employer] NOTES: Pancreas: Hyperechoic Liver: wnl Gallbladder: 0.5 cm echogenic foci near neck of gallbladder, thickened roberts Evidence for sonographic Whitley's sign: No CBD: wnl Right Kidney: Cyst visualized near inferior pole measuring 10.1 x 6.0 x 8.5 cm surrounding ascites noted IMPRESSION: 1. Pericholecystic fluid with thickened gallbladder roberts Cholelithiasis with gallstone in the gallb ladder neck measuring 5 mm. Negative sonographic Whitley's sign. Findings can be normal findings in sc lerotic patients of third spacing of fluid. 2. Hepatic cirrhosis with small ascites 3. Right renal simple appearing cyst measuring up to 10.1 cm. [facility], , 06/07/2024 10:05 AM
== END | disposition home or self-care (01) ==
LOC: RADUSWWP 08:52
PROVIDERS: ATTEND Internal Medicine Gastroenterology
DX: K70.31 Alcoholic cirrhosis of liver with ascites (principal); K80.20 Calculus of gallbladder without cholecystitis without obstruction; N28.1 Cyst of kidney, acquired
CPT/HCPCS: 76705

== ENCOUNTER 2024-06-25 09:10 | Day surgery (SDC) | payer MEDICARE ==
[2024-06-24 09:40] VITALS: BMI 27.4
[~2024-06-25 09:10] MED LIST changes: +LACTATED RINGERS 1,000 ML IV SCH; -PROPOFOL 10 MG/ML 20 ML VIAL IV ONE
[2024-06-25] MEDS: IV FLUID CONTINUATION 1,000 ML IV ONE ×2 (09:52→10:46)
[2024-06-25 10:02] VITALS: TEMP 97.5
[2024-06-25 10:17] LABS: Glucose,Whole Blood 134 mg/dL (70-110)
[2024-06-25] MEDS ORDERED: PROPOFOL 10 MG/ML 20 ML VIAL IV ONE (10:53)
[2024-06-25] MEDS ORDERED: LIDOCAINE 1% INJ 10MG/ML (20 ML MDV) ONE (10:53)
--- NOTE | 2024-06-25 11:00 | P.PCN ---
Date of Procedure: 06/25/24 Procedure(s) Performed: BRIEF HISTORY: Patient is a 69-year-old, pleasant, white female scheduled for an upper endoscopy as a part follow-up of esophageal varices. She has history of nonalcoholic fatty liver disease with liver cirrhosis diagnosed several years ago. Last EGD with variceal ligation was in May 2023.. PROCEDURE PERFORMED: Esophagogastroduodenoscopy. PREOPERATIVE DIAGNOSIS: History of liver cirrhosis/follow-up esophageal varices. IV sedation per anesthesia. PROCEDURE: After informed consent was obtained, the patient was brought into the endoscopy unit. IV sedation was administered by Anesthesia under continuous monitoring. Initially the Olympus GIF-140 video endoscope was inserted into the mouth. Esophagus intubated without any difficulty. It was gradually advanced into the stomach and duodenum and carefully examined. The bulb and the second part of the duodenum appeared normal. The scope at this time was withdrawn to the stomach, adequately insufflated with air, and upon careful examination, mucosa of the antrum, body, cardia and the fundus had changes consistent with moderate to severe portal hypertensive gastropathy. The scope was then withdrawn into the esophagus. The GE junction was located at 39 cm from the incisors. There were small distal esophageal varices identified with scarring from previous variceal ligation. No large varices identified. Hence no variceal ligation was performed. The proximal esophagus appeared normal. The patient tolerated the procedure well. IMPRESSION: 1. Small distal esophageal varices with some scarring noted from previous variceal ligation. 2. Moderate to severe portal hypertensive gastropathy. RECOMMENDATIONS: The findings of this examination were discussed with the patient as well as her family. She was advised to continue with Inderal 60 mg daily and will plan on repeat upper endoscopy in 1 year..
[2024-06-25 11:50] VITALS: BP 111/72; PULSE 65; RESP 20
== END 2024-06-25 11:46 | disposition home or self-care (01) ==
LOC: ORWHC2ENDO 09:10
PROVIDERS: ATTEND Internal Medicine Gastroenterology
DX: K76.6 Portal hypertension (principal); K31.89 Other diseases of stomach and duodenum; I85.10 Secondary esophageal varices without bleeding; K74.60 Unspecified cirrhosis of liver; K76.0 Fatty (change of) liver, not elsewhere classified; I10 Essential (primary) hypertension; E78.5 Hyperlipidemia, unspecified; E11.9 Type 2 diabetes mellitus without complications; Z79.84 Long term (current) use of oral hypoglycemic drugs; Z79.899 Other long term (current) drug therapy; Z88.2 Allergy status to sulfonamides
CPT/HCPCS: 43235; J2003; J2704